=== PATIENT | female | born 1935 | race African-American/Black ===

== ENCOUNTER 2016-10-18 14:28 | Emergency (ER) | payer MEDICARE, MEDICAID ==
--- NOTE | 2016-10-18 14:38 | ER Document Report ---
ED Medical Screen (RME) - General Chief Complaint: Fall Injury Stated Complaint: FALL HEAD INJURY Time seen by provider: 14:36 Mode of Arrival: Ambulatory Information source: Patient Notes: 80-year-old female with dementia was with her caregiver and she was walking and stumbled fell forward onto both of her knees, abrasion to her third finger and multiple facial abrasions are to arrival. Tetanus unknown I have greeted and performed a rapid initial assessment of this patient. A comprehensive ED assessment, evaluation of the patient, analysis of test results , and completion of the medical decision making process will be conducted by additional ED providers. TRAVEL OUTSIDE OF THE [place] IN LAST 30 DAYS: No - Related Data Allergies/Adverse Reactions: No Known Allergies Allergy (Verified 10/18/16 14:35) Past Medical History Renal/ Medical History: Denies: Hx Peritoneal Dialysis
[2016-10-18] MEDS ORDERED: DIPH/PERTUSS(ACELL)/TETANUS VAC/PF 0.5 ML SYR (>=10YO) IM ONE (17:28)
--- NOTE | 2016-10-18 17:29 | ER Document Report ---
[id number] Mode of Arrival: Ambulatory Information source: Patient Notes: The patient is an 80-year-old female, past medical history Alzheimer's, presents after she had a mechanical fall where she slipped on carpet and landed on the right side of her face. She is also complaining of right fourth finger pain and abrasion. She did not have LOC. He is on a baby aspirin. Patient is confused, but according to the 2 sons at bedside, this is baseline. Unable to provide any additional history. TRAVEL OUTSIDE OF THE [place] IN LAST 30 DAYS: No - Related data Allergies/Adverse Reactions: No Known Allergies Allergy (Verified 10/18/16 14:35) Past Medical History - General Information source: Patient - Social History Smoking Status: Smoker,Current Status Unk Family History: Reviewed & Not Pertinent Patient has suicidal ideation: No Patient has homicidal ideation: No Renal/ Medical History: Denies: Hx Peritoneal Dialysis Review of Systems - Review of Systems -: Yes ROS unobtainable due to patient's medical condition Physical Exam - Vital signs Vitals: Temp Pulse Resp BP Pulse Ox 98.7 F 101 H 16 190/108 H 93 10/18/16 14:35 10/18/16 14:35 10/18/16 14:35 10/18/16 14:35 10/18/16 14:35 - Notes Notes: PHYSICAL EXAMINATION: GENERAL: Well-appearing, well-nourished and in no acute distress. HEAD: Large right frontal contusion. EYES: Large contusion surrounding right eye. No vision changes. No proptosis. Pupils equal round and reactive to light, extraocular movements intact, sclera anicteric, conjunctiva are normal. ENT: nares patent, oropharynx clear without exudates. Moist mucous membranes. NECK: Normal range of motion, supple without lymphadenopathy LUNGS: Breath sounds clear to auscultation bilaterally and equal. No wheezes rales or rhonchi. HEART: Regular rate and rhythm without murmurs ABDOMEN: Soft, nontender, normoactive bowel sounds. No guarding, no rebound. No masses appreciated. EXTREMITIES: Abrasion over right 4th finger. Normal range of motion, no pitting or edema. No cyanosis. NEUROLOGICAL: Cranial nerves grossly intact. Normal speech, normal gait. Normal sensory, motor, and reflex exams. SKIN: 2 cm stellate laceration over forehead. 1 cm linear laceration over right confucianism. Abrasion over right 4th finger. Warm, Dry, normal turgor, no rashes or lesions noted. Course - Re-evaluation Re-evalutation: Patient is at baseline for her mental status. CT of her head, face, chest and x -rays of her fingers and knees do not show any acute fractures. Lacerations repaired with Dermabond and Steri-Strips. Spoke to his sons about wound care and they understand. Answered all questions. - Vital Signs Vital signs: Temp Pulse Resp BP Pulse Ox 98.3 F 94 16 161/69 H 99 10/18/16 18:30 10/18/16 18:30 10/18/16 14:35 10/18/16 18:30 10/18/16 18:30 - Diagnostic Test Radiology reviewed: Image reviewed, Reports reviewed Radiology results interpreted by me: CT Head/Face/Chest: no fractures. X-ray right fingers: no fractures B/L knee x-rays: no fractures Procedures - Laceration/Wound Repair Right Upper Face Wound length (cm): 3 Wound's Depth, Shape: Stellate Laceration pre-procedure: Shur-Clens applied Wound explored: Clean Wound Debrided: Minimal Wound Repaired With: Dermabond Layer Closure?: No Post-procedure wound care: Sterile dressing applied Post-procedure NV exam normal: Yes Complications: No Discharge - Discharge Clinical Impression: Head contusion Qualifiers: Encounter type: initial encounter Contusion of head detail: unspecified part of head Qualified Code(s): S00.93XA - Contusion of unspecified part of head, initial encounter Forehead laceration Qualifiers: Encounter type: initial encounter Qualified Code(s): S01.81XA - Laceration without foreign body of other part of head, initial encounter Finger laceration Qualifiers: Encounter type: initial encounter Qualified Code(s): S61.219A - Laceration without foreign body of unspecified finger without damage to nail, initial encounter Disposition: HOME, SELF-CARE Additional Instructions: NON-SUTURED LACERATION: Your laceration did not require suturing. Some lacerations cannot be sutured because of increased infection risk, while others simply don't need stitches because they are shallow or very short. Your injury should be protected while it heals. Usually complete healing takes 10 to 14 days. Keep the dressing clean and dry, and change it every day. If you notice increasing pain, redness, swelling, drainage, or tender lumps in the armpit or groin above the injury, infection may be present. You should call the doctor at once. SOAP CLEANSING: Gently wash the wound daily using a mild soap (like Ivory, Phisoderm, Neutrogena). Use warm water, rubbing gently until all debris, ooze, and crusting have been washed from the wound. Allow to dry briefly (about 10 minutes) after cleaning. Repeat this cleansing at least three times a day for the first two days and then once or twice a day. ANTIBIOTIC OINTMENT PROTECTION: Your wounds are such that dressing them is not practical or optional. After cleansing, you should apply a thin coating of antibiotic ointment ( Bacitracin, not Neosporin) to the wounds at least three times daily. This lessens infection risk, and may decrease the amount of scarring. Use a q-tip or dull butter knife, not your finger, to apply this ointment. Any debris or ooze which builds up in the ointment should be gently rubbed off with a sterile gauze pad. Harder crusting may need to be gently scrubbed off with a clean wash cloth with soap and warm water, perhaps applying a warm, wet wash cloth to the wound for ten minutes first. Development of redness, severe itching, or blistering may mean allergy to the ointment. See the doctor. TETANUS IMMUNIZATION GIVEN: You have been given an immunization against tetanus. Please record this in your records. In general, a booster is needed only once every 10 years. The tetanus shot protects against tetanus or "lockjaw," which is a complication of certain wound infections (the tetanus shot cannot protect against the actual infection). The immunization site may become warm and red due to local reaction. If this occurs, apply warm compresses and take aspirin or ibuprofen to reduce inflammation and discomfort. Return for evaluation if the reaction becomes severe. Contusion Your injury has resulted in a contusion -- a crushing of the deep tissues. No injury to important structures was detected during the physician's exam. Contusions vary in the amount of pain they cause, and in the length of time required for healing. Typically, the area will become bruised, and will remain painful to touch for two or three weeks. However, most patients are back to working and playing within a few days. After the initial period of rest and cold-packs, your symptoms (together with the doctor's recommendations) will determine how rapidly you can get back to full activity. Usually this means "do what feels okay, but don't do things that hurt." If re-examination was recommended, it's important to follow up as instructed. Call the doctor or return any time if pain increases, if swelling becomes severe, if you develop numbness or weakness in an injured extremity, or if any other alarming symptoms occur. Referrals: MARGO FLETCHER MD [Primary Care Provider] - Follow up as needed
[2016-10-18 18:32] VITALS: BP 161/69
== END 2016-10-18 18:32 | disposition home or self-care (01) ==
LOC: ER 14:28
DX: S00.93XA Contusion of unspecified part of head, initial encounter (principal); S01.81XA Laceration without foreign body of other part of head, initial encounter; S61.219A Laceration without foreign body of unspecified finger without damage to nail, initial encounter; G30.9 Alzheimer's disease, unspecified; F02.80 Dementia in other diseases classified elsewhere, unspecified severity, without behavioral disturbance, psychotic disturbance, mood disturbance, and anxiety; W01.0XXA Fall on same level from slipping, tripping and stumbling without subsequent striking against object, initial encounter; Z23 Encounter for immunization; Z79.82 Long term (current) use of aspirin
CPT/HCPCS: 70450; 70486; 71250; 90471; 90715; 99284

== ENCOUNTER 2017-06-11 16:37 | Inpatient (IN) | payer MEDICARE, MEDICAID ==
[2017-06-11 17:06] LABS: ABSOLUTE BASOPHILS # (AUTO) 0.1 10^3/uL (0.0-0.2); ABSOLUTE EOSINOPHILS # (AUTO) 0.2 10^3/uL (0.0-0.6); ABSOLUTE LYMPHOCYTES (AUTO) 2.4 10^3/uL (0.5-4.7); ABSOLUTE MONOCYTES (AUTO) 0.8 10^3/uL (0.1-1.4); ABSOLUTE NEUT (AUTO) 3.9 10^3/uL (1.7-8.2); BASOPHILS % (AUTO) 1.2 % (0-2); EOSINOPHILS % (AUTO) 2.2 % (0-6); HEMATOCRIT 44.8 % (36.0-47.0); HGB HCT DIFFERENCE -2.8; LYMPHOCYTES % (AUTO) 33.2 % (13-45); MEAN CORPUSCULAR HEMOGLOBIN 26.8 pg (27.0-33.4); MEAN CORPUSCULAR HGB CONC 31.2 g/dL (32.0-36.0); MEAN CORPUSCULAR VOLUME 86 fl (80-97); MONOCYTES % (AUTO) 10.4 % (3-13); RED BLOOD COUNT 5.21 10^6/uL (3.72-5.28); RED CELL DISTRIBUTION WIDTH 17.5 % (11.5-14.0); WHITE BLOOD COUNT 7.3 10^3/uL (4.0-10.5)
[2017-06-11 17:26] LABS: ALANINE AMINOTRANSFERASE 36 U/L (9-52); ALBUMIN 4.1 g/dL (3.5-5.0); ALKALINE PHOSPHATASE 126 U/L (38-126); ANION GAP 13 (5-19); ASPARTATE AMINO TRANSFERASE 27 U/L (14-36); BILIRUBIN,DIRECT 0.4 mg/dL (0.0-0.4); BILIRUBIN,TOTAL 0.8 mg/dL (0.2-1.3); BLOOD UREA NITROGEN 27 mg/dL (7-20); CALCIUM 10.3 mg/dL (8.4-10.2); CARBON DIOXIDE 30 mmol/L (22-30); CHLORIDE 123 mmol/L (98-107); CREATININE RESULT 1.22 mg/dL (0.52-1.25); GLUCOSE 114 mg/dL (75-110); MAGNESIUM 2.9 mg/dL (1.6-2.3); SODIUM 166.2 mmol/L (137-145); TOTAL PROTEIN 7.3 g/dL (6.3-8.2)
[2017-06-11 17:57] LABS: APPEARANCE,URINE SLIGHTLY-CLOUDY; BILIRUBIN,URINE NEGATIVE (NEGATIVE); GLUCOSE, URINE NEGATIVE (NEGATIVE); KETONES,URINE NEGATIVE (NEGATIVE); LEUKOCYTE ESTERASE,URINE NEGATIVE (NEGATIVE); NITRITE,URINE NEGATIVE (NEGATIVE); PROTEIN,URINE NEGATIVE (NEGATIVE); UROBILINOGEN,URINE NEGATIVE mg/dL (<2.0)
--- NOTE | 2017-06-11 19:11 | ER Document Report ---
ED Seizure - General Mode of Arrival: Medic Information source: Relative Cannot obtain history due to: Other - Alzheimer's - HPI Patient complains to provider of: History of seizures Current seizure medications: Lamictal Injuries: None <GONZALO DEE - Last Filed: 06/11/17 19:11> <PAULETTE FINN - Last Filed: 06/11/17 21:07> - General Chief Complaint: Altered Mental Status Stated Complaint: ALTERED MENTAL STATUS Time Seen by Provider: 06/11/17 18:58 Notes: Patient is an 81-year-old female that presents to the emergency department today secondary to a possible seizure prior to arrival. Patient is nonverbal at baseline, son states the patient answers simple yes or no questions but has been essentially nonverbal for several months secondary to alzheimer's. Patient has a history of seizures and is on Lamictal. Son states that at approximately 1500 the patient began "twitching" her left arm and left leg. Son states the patient seemed to be awake and alert during the seizure which is normal for her seizure episodes. Son states he is unsure of her last seizure as they usually occur at night. (GONZALO DEE) - Related Data Allergies/Adverse Reactions: No Known Allergies Allergy (Verified 10/18/16 14:35) Past Medical History - General Information source: Relative, [facility] Records Cannot obtain history due to: Other - alzheimer's - Social History Smoking Status: Unknown if Ever Smoked Cigarette use (# per day): No Frequency of alcohol use: None Drug Abuse: None Lives with: Family Family History: Reviewed & Not Pertinent - Past Medical History Cardiac Medical History: Reports: Hx Hypertension Neurological Medical History: Reports: Hx Seizures Surgical Hx: Negative <GONZALO DEE - Last Filed: 06/11/17 19:11> Review of Systems - Review of Systems -: Yes ROS unobtainable due to patient's medical condition - patient non-verbal at baseline <GONZALO DEE - Last Filed: 06/11/17 19:11> Physical Exam - Vital signs Interpretation: Normal - General General appearance: Appears well, Alert - HEENT Head: Normocephalic, Atraumatic Eyes: Normal Pupils: PERRL - Respiratory Respiratory status: No respiratory distress Chest status: Nontender Breath sounds: Normal Chest palpation: Normal - Cardiovascular Rhythm: Regular Heart sounds: Normal auscultation Murmur: No - Abdominal Inspection: Normal Distension: No distension Bowel sounds: Normal Tenderness: Nontender Organomegaly: No organomegaly - Back Back: Normal, Nontender - Extremities General upper extremity: Normal ROM, Normal strength, Other - osteoarthritic changes. No: Edema General lower extremity: Edema - trace, bilaterally, Normal ROM, Normal strength , Other - see skin. osteoarthritic changes - Neurological Neuro grossly intact: Yes Cognition: Other - demented at baseline Speech: Other - does not speak during exam, son at bedside states this is baseline - Psychological Associated symptoms: Other - unable to assess - Skin Skin Temperature: Warm Skin Moisture: Dry Skin Color: Normal <GONZALO DEE - Last Filed: 06/11/17 19:11> <PAULETTE FINN - Last Filed: 06/11/17 21:07> - Vital signs Vitals: Resp BP Pulse Ox 18 150/99 H 94 06/11/17 16:47 06/11/17 16:47 06/11/17 16:47 - Skin Notes: right posterior heel has thickened skin which appears to be filled with blood, skin is intact with no breaks. (GONZALO DEE) Course - Laboratory Result Diagrams: 06/11/17 16:48 06/11/17 16:48 <GONZALO DEE - Last Filed: 06/11/17 19:11> - Laboratory Result Diagrams: 06/11/17 16:48 06/11/17 16:48 - EKG Interpretation by Al EKG shows normal: Sinus rhythm, [place], Intervals, QRS Complexes, ST-T Waves Rate: Normal - 98 Voltage: Consistant with LVH When compared to previous EKG there are: Previous EKG unavailable - Consults Dr. Paulson Time consulted: 21:00 Consulted provider: will see as inpatient - Telemetry admission <PAULETTE FINN - Last Filed: 06/11/17 21:07> - Vital Signs Vital signs: Temp Pulse Resp BP Pulse Ox 17 125/79 96 06/11/17 20:02 06/11/17 20:02 06/11/17 20:02 - Laboratory Laboratory results interpreted by la: 06/11/17 06/11/17 06/11/17 16:45 16:48 16:48 MCH 26.8 L MCHC 31.2 L RDW 17.5 H Sodium 166.2 H Chloride 123 H BUN 27 H Est GFR ( Amer) 51 L Est GFR (Non-Af Amer) 42 L Glucose 114 H POC Glucose 119 H Calcium 10.3 H Magnesium 2.9 H Discharge <GONZALO DEE - Last Filed: 06/11/17 19:11> - Discharge Admitting Provider: Ellis - Dr. Paulson is covering Unit Admitted: Telemetry <PAULETTE FINN - Last Filed: 06/11/17 21:07> - Discharge Clinical Impression: Breakthrough seizure, Hypernatremia Alzheimer's dementia Qualifiers: Alzheimer's disease onset: late-onset Dementia behavioral disturbance: without behavioral disturbance Qualified Code(s): G30.1 - Alzheimer's disease with late onset; F02.80 - Dementia in other diseases classified elsewhere without behavioral disturbance; F02.80 - Dementia in other diseases classified elsewhere without behavioral disturbance; F02.80 - Dementia in other diseases classified elsewhere without behavioral disturbance Condition: Stable Disposition: ADMITTED INPATIENT Referrals: MARGO FLETCHER MD [Primary Care Provider] - Follow up as needed Scribe Attestation: 06/11/17 21:07 I personally performed the services described in the documentation, reviewed and edited the documentation which was dictated to the scribe in my presence, and it accurately records my words and actions. (PUALETTE FINN) Scribe Documentation - Scribe Written by Scribe:: Dinorah Cruz, 06/11/2017 1918 acting as scribe for :: Nehemiah <GONZALO DEE - Last Filed: 06/11/17 19:11>
[2017-06-11] MEDS ORDERED: NORMAL SALINE 1000 ML 1,000 ML IV ONE (21:08)
[2017-06-12] MEDS ORDERED: DEXTROSE 5%-WATER 1000 ML 1,000 ML IV PRN ×2 (00:34→13:19)
[2017-06-12] MEDS ORDERED: QUETIAPINE FUMARATE 25 MG TABLET PO ONE ×2 (00:45→14:00)
[2017-06-12] MEDS: LANSOPRAZOLE 30 MG TAB.RAP.DR PO SCH (05:14)
[2017-06-12 05:39] LABS: ABSOLUTE EOSINOPHILS # (AUTO) 0.2 10^3/uL (0.0-0.6); ABSOLUTE LYMPHOCYTES (AUTO) 1.8 10^3/uL (0.5-4.7); ABSOLUTE MONOCYTES (AUTO) 0.5 10^3/uL (0.1-1.4); ABSOLUTE NEUT (AUTO) 3.2 10^3/uL (1.7-8.2); BASOPHILS % (AUTO) 0.6 % (0-2); EOSINOPHILS % (AUTO) 2.8 % (0-6); HEMATOCRIT 39.1 % (36.0-47.0); HEMOGLOBIN 12.1 g/dL (12.0-15.5); HGB HCT DIFFERENCE -2.8; LYMPHOCYTES % (AUTO) 31.7 % (13-45); MEAN CORPUSCULAR HGB CONC 31.1 g/dL (32.0-36.0); MEAN CORPUSCULAR VOLUME 87 fl (80-97); MONOCYTES % (AUTO) 8.6 % (3-13); RED CELL DISTRIBUTION WIDTH 17.3 % (11.5-14.0); SEGMENTED NEUTROPHILS % (AUTO) 56.3 % (42-78); WHITE BLOOD COUNT 5.7 10^3/uL (4.0-10.5)
[2017-06-12 05:54] LABS: ANION GAP 10 (5-19); BLOOD UREA NITROGEN 21 mg/dL (7-20); CALCIUM 9.1 mg/dL (8.4-10.2); CARBON DIOXIDE 31 mmol/L (22-30); CHLORIDE 124 mmol/L (98-107); CREATININE RESULT 1.02 mg/dL (0.52-1.25); GLUCOSE 123 mg/dL (75-110); POTASSIUM 3.6 mmol/L (3.6-5.0)
[2017-06-12] MEDS ORDERED: (PENDING PHARMACY ID) (Donepezil Hcl [Aricept] 10 MG) PO SCH (13:30)
[2017-06-12] MEDS ORDERED: LAMOTRIGINE 100 MG PO SCH (13:30)
[2017-06-12] MEDS ORDERED: QUETIAPINE FUMARATE 25 MG TABLET PO SCH (13:30)
--- NOTE | 2017-06-12 13:39 | PDOC H&P ---
History of Present Illness Admission Date/PCP: 06/12/17 00:08 MARGO FLETCHER MD Patient complains of: Altered mental status, possible seizure History of Present Illness: COREEN BHAKTA is a 81 year old female patient of Dr Fletcher brought to the ED by family with complain of change in mental status particularly regarding verbal communication. Son stated that patient have not been her usual self for couple of days and have not been eating or drinking enough. She will normally answer yes or no to questioning but not doing so in last couple of days. He claimed that patient had seizure like twitching movement prior to bring her to the ED. Her usual seizure activity is body twitching without loss of consciousness or tonic clonic movement.He claimed that she has been compliant with her anti seizure medication at home. Also, son reported that patient's seizure commonly occur during the night and cannot attest to her last seizure episode. Her initial evaluation in the ED was significant for severe hypernatremia and dehydration. Her morbidities include Alzheimer's disease, Hypertension, Hyperlipidemia, and Seizure disorder. Past Medical History Cardiac Medical History: Reports: Hypertension Neurological Medical History: Reports: Seizures Social History Lives with: Family Smoking Status: Never Smoker Frequency of Alcohol Use: None Drugs: None - Advance Directive Resuscitation Status: Full Code Family History Family History: Reviewed & Not Pertinent Parental Family History Reviewed: Yes Children Family History Reviewed: Yes Sibling(s) Family History Reviewed.: Yes Medication/Allergy Home Medications: Atorvastatin Calcium [Lipitor 40 mg Tablet] 40 mg PO DAILY 06/12/17 Donepezil HCl [Aricept] 10 mg PO DAILY 06/12/17 Lamotrigine [Lamotrigine ER] 100 mg PO DAILY 06/12/17 Losartan Potassium [Cozaar 100 mg Tablet] 100 mg PO DAILY 06/12/17 Potassium Chloride [Klor-Con 10 Meq Tablet.sa] 10 meq PO DAILY 06/12/17 Quetiapine Fumarate [Seroquel] 25 mg PO DAILY 06/12/17 Allergies/Adverse Reactions: No Known Allergies Allergy (Verified 10/18/16 14:35) Review of Systems ROS unobtainable: Due to mental status All systems: reviewed and no additional remarkable complaints except as stated Physical Exam Vital Signs: Temp Pulse Resp BP Pulse Ox 98.4 F 91 12 140/57 H 96 06/12/17 11:09 06/12/17 11:09 06/12/17 11:09 06/12/17 11:09 06/12/17 11:09 Intake & Output 06/11/17 06/12/17 06/13/17 06:59 06:59 06:59 Intake Total 790 Balance 790 General appearance: PRESENT: no acute distress, cooperative Head exam: PRESENT: atraumatic, normocephalic Eye exam: PRESENT: conjunctiva pink, EOMI, PERRLA. ABSENT: scleral icterus Ear exam: PRESENT: normal external ear exam Mouth exam: PRESENT: dry mucosa - fairly Neck exam: PRESENT: full ROM. ABSENT: carotid bruit, JVD, lymphadenopathy, thyromegaly Respiratory exam: PRESENT: clear to auscultation jesus, decreased breath sounds Cardiovascular exam: PRESENT: RRR. ABSENT: diastolic murmur, rubs, systolic murmur GI/Abdominal exam: PRESENT: normal bowel sounds, soft. ABSENT: distended, guarding, mass, organolmegaly, rebound, tenderness Extremities exam: ABSENT: pedal edema Musculoskeletal exam: PRESENT: deformity - related to joint involvement with arthritis Neurological exam: PRESENT: altered - due to baseline dementai Psychiatric exam: PRESENT: appropriate affect, normal mood. ABSENT: homicidal ideation, suicidal ideation Skin exam: PRESENT: dry, intact, warm. ABSENT: cyanosis, rash Results Laboratory Results: 06/12/17 04:46 06/12/17 04:46 06/12/17 06/12/17 04:46 04:46 WBC 5.7 RBC 4.50 Hgb 12.1 Hct 39.1 MCV 87 MCH 27.0 MCHC 31.1 L RDW 17.3 H Plt Count 174 Seg Neutrophils % 56.3 Lymphocytes % 31.7 Monocytes % 8.6 Eosinophils % 2.8 Basophils % 0.6 Absolute Neutrophils 3.2 Absolute Lymphocytes 1.8 Absolute Monocytes 0.5 Absolute Eosinophils 0.2 Absolute Basophils 0.0 Sodium 165.0 H Potassium 3.6 Chloride 124 H Carbon Dioxide 31 H Anion Gap 10 BUN 21 H Creatinine 1.02 Est GFR ( Amer) > 60 Est GFR (Non-Af Amer) 52 L Glucose 123 H Calcium 9.1 Assessment & Plan - Diagnosis (1) Dehydration with hypernatremia Is this a current diagnosis for this admission?: Yes Plan: See covering attending physician orders. (2) Seizure disorder Is this a current diagnosis for this admission?: Yes Plan: See covering attending physician orders. (3) Alzheimer's dementia Qualifiers: Alzheimer's disease onset: late-onset Dementia behavioral disturbance: without behavioral disturbance Qualified Code(s): G30.1 - Alzheimer's disease with late onset; F02.80 - Dementia in other diseases classified elsewhere without behavioral disturbance; F02.80 - Dementia in other diseases classified elsewhere without behavioral disturbance; F02.80 - Dementia in other diseases classified elsewhere without behavioral disturbance Is this a current diagnosis for this admission?: Yes Plan: See covering attending physician orders. - Time Time Spent: 50 to 70 Minutes Medications reviewed and adjusted accordingly: Yes Anticipated discharge: Home with Homehealth Within: Other - Inpatient Certification Based on my medical assessment, after consideration of the patient's comorbidities, presenting symptoms, or acuity I expect that the services needed warrant INPATIENT care.: Yes I certify that my determination is in accordance with my understanding of Medicare's requirements for reasonable and necessary INPATIENT services [42 CFR 412.3e].: Yes Medical Necessity: Need Close Monitoring Due to Risk of Patient Decompensation, Need For IV Fluids, Need For Continuous Telemetry Monitoring, Risk of Complication if Not Cared For in Hospital Post Hospital Care: D/C Wreath Inspector Documentation - Plan Summary Plan Summary: See covering attending physician orders.
[2017-06-12] MEDS: ENOXAPARIN SODIUM INJ 40 MG/0.4 ML DISP.SYRIN SUBCUT SCH (14:37)
[2017-06-12] MEDS ORDERED: LOSARTAN POTASSIUM 50 MG TABLET PO ONE (15:45)
[2017-06-12] MEDS ORDERED: DONEPEZIL HCL 5 MG TABLET PO ONE (15:45)
[2017-06-12] MEDS: ACETAMINOPHEN 325 MG TABLET PO PRN (15:56)
--- NOTE | 2017-06-12 16:58 | EKG REPORT ---
SEVERITY:- ABNORMAL ECG - SINUS RHYTHM LEFT VENTRICULAR HYPERTROPHY : Confirmed by: Ivy Lynn MD 12-Jun-2017 16:57:27
[2017-06-12] MEDS: ATORVASTATIN CALCIUM 40 MG TABLET PO SCH (22:03)
[2017-06-13] MEDS: LANSOPRAZOLE 30 MG TAB.RAP.DR PO SCH (05:19)
[2017-06-13] MEDS ORDERED: QUETIAPINE FUMARATE 25 MG TABLET PO SCH (10:00)
[2017-06-13] MEDS: ENOXAPARIN SODIUM INJ 40 MG/0.4 ML DISP.SYRIN SUBCUT SCH (11:18)
[2017-06-13] MEDS: DONEPEZIL HCL 5 MG TABLET PO SCH (11:21)
[2017-06-13] MEDS: LOSARTAN POTASSIUM 50 MG TABLET PO SCH (11:21)
[2017-06-13] MEDS: LAMOTRIGINE 100 MG PO SCH (11:24)
[2017-06-13 12:05] LABS: ANION GAP 10 (5-19); BLOOD UREA NITROGEN 14 mg/dL (7-20); CALCIUM 8.9 mg/dL (8.4-10.2); CARBON DIOXIDE 31 mmol/L (22-30); CHLORIDE 111 mmol/L (98-107); CREATININE RESULT 0.89 mg/dL (0.52-1.25); GLUCOSE 110 mg/dL (75-110); SODIUM 152.2 mmol/L (137-145)
[2017-06-13 12:20] LABS: POTASSIUM 2.8 mmol/L (3.6-5.0)
[2017-06-13] MEDS ORDERED: POTASSI CL 20 MEQ/50 ML RIDER 20 MEQ/50 ML RTUPB IV SCH (12:47)
[2017-06-13] MEDS ORDERED: CEFTRIAXONE 1 GM/D5W RTU 1 GM/50 ML RTUPB IV ONE (14:00)
--- NOTE | 2017-06-13 14:23 | PDOC PROGRESS REPORT ---
Subjective Progress Note for:: 06/13/17 Subjective:: Patient was admitted because of the possible seizure and the worsening the dementia and dehydration's Recent sodium level was high and was started on a D5 and now coming down to 158 Patient's potassium is also low According to the nursing staff and son patient ate the 75% of the breakfast this morning According to the son patient's behavior is more getting worse since last couple of months Also see a neurology as outpatient Patient is currently laying in the bed but alert but not fully oriented as usual underlying present dementia Physical Exam Vital Signs: Temp Pulse Resp BP Pulse Ox 98.7 F 97 20 149/73 H 96 06/13/17 11:08 06/13/17 11:08 06/13/17 11:08 06/13/17 11:08 06/13/17 11:08 Intake & Output 06/12/17 06/13/17 06/14/17 06:59 06:59 06:59 Intake Total 790 2630 Balance 790 2630 Weight 85.6 kg General appearance: PRESENT: no acute distress Eye exam: PRESENT: PERRLA Mouth exam: PRESENT: dry mucosa Neck exam: PRESENT: full ROM Respiratory exam: PRESENT: clear to auscultation jesus Cardiovascular exam: PRESENT: +S1 GI/Abdominal exam: PRESENT: normal bowel sounds, soft Extremities exam: ABSENT: pedal edema Neurological exam: PRESENT: altered Skin exam: PRESENT: dry Results Laboratory Results: 06/12/17 04:46 06/13/17 11:19 06/13/17 11:19 Sodium 152.2 H Potassium 2.8 L* Chloride 111 H Carbon Dioxide 31 H Anion Gap 10 BUN 14 Creatinine 0.89 Est GFR ( Amer) > 60 Est GFR (Non-Af Amer) > 60 Glucose 110 Calcium 8.9 Assessment & Plan - Diagnosis (1) Hypokalemia Is this a current diagnosis for this admission?: Yes Plan: Replace the potassiums IVWill have a difficult to supplement with the p.o. at this stage (2) Alzheimer's dementia Qualifiers: Alzheimer's disease onset: late-onset Dementia behavioral disturbance: without behavioral disturbance Qualified Code(s): G30.1 - Alzheimer's disease with late onset; F02.80 - Dementia in other diseases classified elsewhere without behavioral disturbance; F02.80 - Dementia in other diseases classified elsewhere without behavioral disturbance; F02.80 - Dementia in other diseases classified elsewhere without behavioral disturbance Is this a current diagnosis for this admission?: Yes Plan: Worsening the dimensions discussed with the son on the bedside report regarding options to sending to the rehab unit versus home and versus ongoing problem with the dementia including the failure to thrive (3) Breakthrough seizure Is this a current diagnosis for this admission?: Yes Plan: Currently stable with the current medications (4) Dehydration with hypernatremia Is this a current diagnosis for this admission?: Yes Plan: Continues to IV fluid will get the potassium and IV fluid (5) Hypernatremia Is this a current diagnosis for this admission?: Yes Plan: Continues to IV fluid (6) Recurrent urinary tract infection Is this a current diagnosis for this admission?: Yes Plan: Will check the urine culture with the currently altered mental surgery start the patient on IV Rocephin with this change in the mental status and a previous history of the recurrent urinary tract infections - Time Time Spent with patient: 15-24 minutes Medications reviewed and adjusted accordingly: Yes Anticipated discharge: Other Within: Other - Inpatient Certification Medical Necessity: Need For IV Fluids, Need for IV Antibiotics Post Hospital Care: D/C O[employer] Unloader Documentation - Plan Summary Plan Summary: Discussed with the son and the bedside about the patient's current conditions
--- NOTE | 2017-06-13 15:24 | RADIOLOGY REPORT (SQ) ---
EXAM DESCRIPTION: CT HEAD WITHOUT COMPLETED DATE/TIME: 06/13/2017 3:11 pm REASON FOR STUDY: ams COMPARISON: 10/18/2016 TECHNIQUE: Axial images acquired through the brain without intravenous contrast. Images reviewed wi th bone, brain and subdural windows. Images stored on PACS. All CT scanners at this facility use dose modulation, iterative reconstruction, and/or weight based d osing when appropriate to reduce radiation dose to as low as reasonably achievable (ALARA). [facility]: Dose Right [facility]: CareDose [facility]: Dose Right [facility]: Teradose 4D [facility]: Smart [employer] RADIATION DOSE: Up-to-date CT equipment and radiation dose reduction techniques were employed. CTDIv ol: 49.0 mGy. DLP: 881 mGy-cm.mGy. LIMITATIONS: None. FINDINGS: VENTRICLES: Prominent. CEREBRUM: No masses. No hemorrhage. No midline shift. Areas of low density in the white matter mos t likely due to chronic micro-vascular ischemic change. No evidence for acute infarction. CEREBELLUM: No masses. No hemorrhage. No alteration of density. No evidence for acute infarction. EXTRAAXIAL SPACES: Age-related involutional change. No fluid collections. No masses. ORBITS AND GLOBE: No intra- or extraconal masses. Normal contour of globe without masses. CALVARIUM: No fracture. PARANASAL SINUSES: No fluid or mucosal thickening. SOFT TISSUES: No mass or hematoma. OTHER: No other significant finding. IMPRESSION: NO ACUTE INTRACRANIAL PROCESS. NO SIGNIFICANT CHANGE FROM PRIOR STUDY. EVIDENCE OF ACUTE STROKE: NO. TECHNICAL DOCUMENTATION: JOB ID: [id number] Quality ID # [id number]: Final reports with documentation of one or more dose reduction techniques (e.g., Au tomated exposure control, adjustment of the mA and/or kV according to patient size, use of iterative reconstruction technique) 2010 [employer]- All Rights Reserved
[2017-06-13] MEDS ORDERED: POTASSIUM CHLORIDE 20 MEQ/50 ML RTU IV ONE (17:15)
[2017-06-13] MEDS ORDERED: GUAIFENESIN SYRP 200 MG/10 ML UDC PO PRN (21:08)
[2017-06-13] MEDS: QUETIAPINE FUMARATE 25 MG TABLET PO SCH (22:39)
[2017-06-13] MEDS: ACETAMINOPHEN 325 MG TABLET PO PRN (22:39)
[2017-06-13] MEDS: POTASSI CL 40 MEQ/D5-1/2NS 1L 40 MEQ/1,000 ML RTUINJ IV PRN (22:39)
[2017-06-13] MEDS: ATORVASTATIN CALCIUM 40 MG TABLET PO SCH (22:39)
[2017-06-14] MEDS: LANSOPRAZOLE 30 MG TAB.RAP.DR PO SCH (05:47)
[2017-06-14 07:05] LABS: ABSOLUTE EOSINOPHILS # (AUTO) 0.3 10^3/uL (0.0-0.6); ABSOLUTE MONOCYTES (AUTO) 0.5 10^3/uL (0.1-1.4); ABSOLUTE NEUT (AUTO) 2.5 10^3/uL (1.7-8.2); BASOPHILS % (AUTO) 0.4 % (0-2); EOSINOPHILS % (AUTO) 4.9 % (0-6); HEMATOCRIT 36.1 % (36.0-47.0); HEMOGLOBIN 11.2 g/dL (12.0-15.5); HGB HCT DIFFERENCE -2.5; LYMPHOCYTES % (AUTO) 37.6 % (13-45); MEAN CORPUSCULAR HEMOGLOBIN 26.7 pg (27.0-33.4); MEAN CORPUSCULAR HGB CONC 31.1 g/dL (32.0-36.0); MEAN CORPUSCULAR VOLUME 86 fl (80-97); MONOCYTES % (AUTO) 9.1 % (3-13); RED BLOOD COUNT 4.21 10^6/uL (3.72-5.28); RED CELL DISTRIBUTION WIDTH 16.3 % (11.5-14.0); WHITE BLOOD COUNT 5.2 10^3/uL (4.0-10.5)
[2017-06-14 07:22] LABS: ANION GAP 10 (5-19); BLOOD UREA NITROGEN 11 mg/dL (7-20); CARBON DIOXIDE 29 mmol/L (22-30); CHLORIDE 116 mmol/L (98-107); CREATININE RESULT 0.87 mg/dL (0.52-1.25); GLUCOSE 106 mg/dL (75-110); POTASSIUM 3.7 mmol/L (3.6-5.0)
[2017-06-14] MEDS: DONEPEZIL HCL 5 MG TABLET PO SCH (11:19)
[2017-06-14] MEDS: CEFTRIAXONE 1 GM/D5W RTU 1 GM/50 ML RTUPB IV SCH (11:19)
[2017-06-14] MEDS: LOSARTAN POTASSIUM 50 MG TABLET PO SCH (11:20)
[2017-06-14] MEDS: ENOXAPARIN SODIUM INJ 40 MG/0.4 ML DISP.SYRIN SUBCUT SCH (11:21)
[2017-06-14] MEDS: LAMOTRIGINE 100 MG PO SCH (11:32)
--- NOTE | 2017-06-14 13:47 | PDOC PROGRESS REPORT ---
Subjective Progress Note for:: 06/14/17 Subjective:: Patient is currently doing fair more alert awake but still very confused Patient CT head was all negative for any acute finding Discussed with the nursing staff patient's p.o. intake is 75% Physical Exam Vital Signs: Temp Pulse Resp BP Pulse Ox 97.8 F 75 18 150/71 H 98 06/14/17 11:46 06/14/17 11:46 06/14/17 11:46 06/14/17 11:46 06/14/17 11:46 Intake & Output 06/13/17 06/14/17 06/15/17 06:59 06:59 06:59 Intake Total 2630 2896 Balance 2630 2896 Weight 85.6 kg General appearance: PRESENT: no acute distress, well-developed, well-nourished Head exam: PRESENT: atraumatic, normocephalic Eye exam: PRESENT: conjunctiva pink, EOMI, PERRLA. ABSENT: scleral icterus Ear exam: PRESENT: normal external ear exam Mouth exam: PRESENT: moist, tongue midline Neck exam: PRESENT: full ROM. ABSENT: carotid bruit, JVD, lymphadenopathy, thyromegaly Respiratory exam: PRESENT: clear to auscultation jesus Cardiovascular exam: PRESENT: RRR. ABSENT: diastolic murmur, rubs, systolic murmur Pulses: PRESENT: normal dorsalis pedis pul, +2 pedal pulses bilateral Vascular exam: PRESENT: normal capillary refill GI/Abdominal exam: PRESENT: normal bowel sounds, soft. ABSENT: distended, guarding, mass, organolmegaly, rebound, tenderness Rectal exam: PRESENT: deferred Extremities exam: ABSENT: pedal edema Neurological exam: PRESENT: altered. ABSENT: motor sensory deficit Psychiatric exam: PRESENT: appropriate affect, normal mood. ABSENT: homicidal ideation, suicidal ideation Skin exam: PRESENT: dry, intact, warm. ABSENT: cyanosis, rash Results Laboratory Results: 06/14/17 05:52 06/14/17 05:52 06/14/17 06/14/17 05:52 05:52 WBC 5.2 RBC 4.21 Hgb 11.2 L Hct 36.1 MCV 86 MCH 26.7 L MCHC 31.1 L RDW 16.3 H Plt Count 154 Seg Neutrophils % 48.0 Lymphocytes % 37.6 Monocytes % 9.1 Eosinophils % 4.9 Basophils % 0.4 Absolute Neutrophils 2.5 Absolute Lymphocytes 2.0 Absolute Monocytes 0.5 Absolute Eosinophils 0.3 Absolute Basophils 0.0 Sodium 155.0 H Potassium 3.7 Chloride 116 H Carbon Dioxide 29 Anion Gap 10 BUN 11 Creatinine 0.87 Est GFR ( Amer) > 60 Est GFR (Non-Af Amer) > 60 Glucose 106 Calcium 9.0 Impressions: Head CT 06/13/17 00:00 IMPRESSION: NO ACUTE INTRACRANIAL PROCESS. NO SIGNIFICANT CHANGE FROM PRIOR STUDY. EVIDENCE OF ACUTE STROKE: NO. Assessment & Plan - Diagnosis (1) Hypokalemia Is this a current diagnosis for this admission?: Yes Plan: Currently all resolved (2) Alzheimer's dementia Qualifiers: Alzheimer's disease onset: late-onset Dementia behavioral disturbance: without behavioral disturbance Qualified Code(s): G30.1 - Alzheimer's disease with late onset; F02.80 - Dementia in other diseases classified elsewhere without behavioral disturbance; F02.80 - Dementia in other diseases classified elsewhere without behavioral disturbance; F02.80 - Dementia in other diseases classified elsewhere without behavioral disturbance Is this a current diagnosis for this admission?: Yes Plan: Worsening the dimensions discussed with the son on the bedside report regarding options to sending to the rehab unit versus home and versus ongoing problem with the dementia including the failure to thrive (3) Breakthrough seizure Is this a current diagnosis for this admission?: Yes Plan: Currently stable with the current medications (4) Dehydration with hypernatremia Is this a current diagnosis for this admission?: Yes Plan: Continues to IV fluid will get the potassium and IV fluid (5) Hypernatremia Is this a current diagnosis for this admission?: Yes Plan: Continues to IV fluid (6) Recurrent urinary tract infection Is this a current diagnosis for this admission?: Yes Plan: Wait for the urine culture - Time Time Spent with patient: 15-24 minutes Medications reviewed and adjusted accordingly: Yes Anticipated discharge: Home Within: Other - Inpatient Certification Medical Necessity: Need For IV Fluids, Need for IV Antibiotics Post Hospital Care: D/C [employer] Quality Control Technician Documentation - Plan Summary Plan Summary: Continues to current medications we will get the physical therapy wait for all culture
--- NOTE | 2017-06-14 16:01 | RADIOLOGY REPORT (SQ) ---
EXAM DESCRIPTION: CHEST SINGLE VIEW COMPLETED DATE/TIME: 06/14/2017 3:51 pm REASON FOR STUDY: cough COMPARISON: CT 10/18/2016 EXAM PARAMETERS: NUMBER OF VIEWS: One view. TECHNIQUE: Single frontal radiographic view of the chest acquired. RADIATION DOSE: NA LIMITATIONS: None. FINDINGS: LUNGS AND PLEURA: The left hemidiaphragm is elevated. There is no acute infiltrate or eff usion. There is no mass. MEDIASTINUM AND HILAR STRUCTURES: No masses. Contour normal. HEART AND VASCULAR STRUCTURES: Heart normal in size. Normal vasculature. BONES: No acute findings. HARDWARE: None in the chest. OTHER: No other significant finding. IMPRESSION: NO ACUTE RADIOGRAPHIC FINDING IN THE CHEST. TECHNICAL DOCUMENTATION: JOB ID: [id number]
[2017-06-14] MEDS: POTASSI CL 40 MEQ/D5-1/2NS 1L 40 MEQ/1,000 ML RTUINJ IV PRN (18:56)
[2017-06-14] MEDS: ATORVASTATIN CALCIUM 40 MG TABLET PO SCH (22:16)
[2017-06-14] MEDS: QUETIAPINE FUMARATE 25 MG TABLET PO SCH (22:16)
[2017-06-15] MEDS: POTASSI CL 40 MEQ/D5-1/2NS 1L 40 MEQ/1,000 ML RTUINJ IV PRN ×2 (05:13→23:14)
[2017-06-15] MEDS: LANSOPRAZOLE 30 MG TAB.RAP.DR PO SCH (05:17)
[2017-06-15 05:49] LABS: ANION GAP 9 (5-19); BLOOD UREA NITROGEN 10 mg/dL (7-20); CARBON DIOXIDE 27 mmol/L (22-30); CHLORIDE 115 mmol/L (98-107); CREATININE RESULT 0.74 mg/dL (0.52-1.25); GLUCOSE 132 mg/dL (75-110); POTASSIUM 3.7 mmol/L (3.6-5.0)
--- NOTE | 2017-06-15 08:26 | PDOC PROGRESS REPORT ---
Subjective Progress Note for:: 06/15/17 Subjective:: Patient is currently doing fair. Patient's able to eat more but nursing staffNo other events happened Physical Exam Vital Signs: Temp Pulse Resp BP Pulse Ox 97.4 F 78 16 147/64 H 97 06/15/17 03:31 06/15/17 03:31 06/15/17 03:31 06/15/17 03:31 06/15/17 03:31 Intake & Output 06/14/17 06/15/17 06/16/17 06:59 06:59 06:59 Intake Total 2896 3317 Balance 2896 3317 General appearance: PRESENT: no acute distress, well-developed, well-nourished Head exam: PRESENT: atraumatic, normocephalic Eye exam: PRESENT: conjunctiva pink, EOMI, PERRLA. ABSENT: scleral icterus Ear exam: PRESENT: normal external ear exam Mouth exam: PRESENT: moist, tongue midline Neck exam: PRESENT: full ROM. ABSENT: carotid bruit, JVD, lymphadenopathy, thyromegaly Respiratory exam: PRESENT: clear to auscultation jesus Cardiovascular exam: PRESENT: RRR. ABSENT: diastolic murmur, rubs, systolic murmur Pulses: PRESENT: normal dorsalis pedis pul, +2 pedal pulses bilateral Vascular exam: PRESENT: normal capillary refill GI/Abdominal exam: PRESENT: normal bowel sounds, soft. ABSENT: distended, guarding, mass, organolmegaly, rebound, tenderness Rectal exam: PRESENT: deferred Extremities exam: ABSENT: pedal edema Neurological exam: PRESENT: altered. ABSENT: motor sensory deficit Psychiatric exam: PRESENT: appropriate affect, normal mood. ABSENT: homicidal ideation, suicidal ideation Skin exam: PRESENT: dry, intact, warm. ABSENT: cyanosis, rash Results Laboratory Results: 06/14/17 05:52 06/15/17 04:23 06/15/17 04:23 Sodium 151.0 H Potassium 3.7 Chloride 115 H Carbon Dioxide 27 Anion Gap 9 BUN 10 Creatinine 0.74 Est GFR ( Amer) > 60 Est GFR (Non-Af Amer) > 60 Glucose 132 H Calcium 9.0 Impressions: Head CT 06/13/17 00:00 IMPRESSION: NO ACUTE INTRACRANIAL PROCESS. NO SIGNIFICANT CHANGE FROM PRIOR STUDY. EVIDENCE OF ACUTE STROKE: NO. Chest X-Ray 06/14/17 00:00 IMPRESSION: NO ACUTE RADIOGRAPHIC FINDING IN THE CHEST. Assessment & Plan - Diagnosis (1) Hypokalemia Is this a current diagnosis for this admission?: Yes Plan: Currently resolved (2) Alzheimer's dementia Qualifiers: Alzheimer's disease onset: late-onset Dementia behavioral disturbance: without behavioral disturbance Qualified Code(s): G30.1 - Alzheimer's disease with late onset; F02.80 - Dementia in other diseases classified elsewhere without behavioral disturbance; F02.80 - Dementia in other diseases classified elsewhere without behavioral disturbance; F02.80 - Dementia in other diseases classified elsewhere without behavioral disturbance Is this a current diagnosis for this admission?: Yes Plan: Worsening the dimensions discussed with the son on the bedside report regarding options to sending to the rehab unit versus home and versus ongoing problem with the dementia including the failure to thrive (3) Breakthrough seizure Is this a current diagnosis for this admission?: Yes Plan: Currently stable with the current medications (4) Dehydration with hypernatremia Is this a current diagnosis for this admission?: Yes Plan: Just IV fluid (5) Hypernatremia Is this a current diagnosis for this admission?: Yes Plan: Continues to IV fluid (6) Recurrent urinary tract infection Is this a current diagnosis for this admission?: Yes Plan: Wait for the urine culture - Time Time Spent with patient: 15-24 minutes Medications reviewed and adjusted accordingly: Yes Anticipated discharge: Home Within: Other - Inpatient Certification Medical Necessity: Need For IV Fluids Post Hospital Care: D/C Chemical Economist Documentation - Plan Summary Plan Summary: Continues to current medications get the physical therapy discussed with the son regarding the patient's current conditions
[2017-06-15] MEDS: DONEPEZIL HCL 5 MG TABLET PO SCH (13:14)
[2017-06-15] MEDS: LOSARTAN POTASSIUM 50 MG TABLET PO SCH (13:15)
[2017-06-15] MEDS: CEFTRIAXONE 1 GM/D5W RTU 1 GM/50 ML RTUPB IV SCH (13:15)
[2017-06-15] MEDS: ENOXAPARIN SODIUM INJ 40 MG/0.4 ML DISP.SYRIN SUBCUT SCH (13:18)
[2017-06-15] MEDS: LAMOTRIGINE 100 MG PO SCH (13:24)
[2017-06-15] MEDS: QUETIAPINE FUMARATE 25 MG TABLET PO SCH (22:29)
[2017-06-15] MEDS: ATORVASTATIN CALCIUM 40 MG TABLET PO SCH (22:29)
[2017-06-16] MEDS: LANSOPRAZOLE 30 MG TAB.RAP.DR PO SCH (05:02)
[2017-06-16 06:12] LABS: ABSOLUTE EOSINOPHILS # (AUTO) 0.3 10^3/uL (0.0-0.6); ABSOLUTE LYMPHOCYTES (AUTO) 1.7 10^3/uL (0.5-4.7); ABSOLUTE MONOCYTES (AUTO) 0.5 10^3/uL (0.1-1.4); ABSOLUTE NEUT (AUTO) 2.6 10^3/uL (1.7-8.2); BASOPHILS % (AUTO) 0.6 % (0-2); EOSINOPHILS % (AUTO) 5.3 % (0-6); HEMATOCRIT 38.6 % (36.0-47.0); HEMOGLOBIN 12.4 g/dL (12.0-15.5); HGB HCT DIFFERENCE -1.4; LYMPHOCYTES % (AUTO) 33.7 % (13-45); MEAN CORPUSCULAR HEMOGLOBIN 26.9 pg (27.0-33.4); MEAN CORPUSCULAR HGB CONC 32.1 g/dL (32.0-36.0); MEAN CORPUSCULAR VOLUME 84 fl (80-97); MONOCYTES % (AUTO) 9.8 % (3-13); RED CELL DISTRIBUTION WIDTH 16.1 % (11.5-14.0); SEGMENTED NEUTROPHILS % (AUTO) 50.6 % (42-78); WHITE BLOOD COUNT 5.1 10^3/uL (4.0-10.5)
[2017-06-16 06:31] LABS: ANION GAP 11 (5-19); BLOOD UREA NITROGEN 10 mg/dL (7-20); CALCIUM 9.4 mg/dL (8.4-10.2); CARBON DIOXIDE 27 mmol/L (22-30); CHLORIDE 108 mmol/L (98-107); CREATININE RESULT 0.71 mg/dL (0.52-1.25); GLUCOSE 118 mg/dL (75-110); POTASSIUM 3.8 mmol/L (3.6-5.0); SODIUM 146.1 mmol/L (137-145)
--- NOTE | 2017-06-16 08:24 | PDOC PROGRESS REPORT ---
Subjective Progress Note for:: 06/23/17 Subjective:: Patient is currently doing well. Patient's still underlying significant dementia very difficult for the physical therapy yesterday Patient's sodium and potassium is back to the normal Otherwise no fever and a urine culture is all negative Family has not decided yet to take the patient home versus the rehab Physical Exam Vital Signs: Temp Pulse Resp BP Pulse Ox 98.8 F 82 19 146/72 H 98 06/16/17 07:19 06/16/17 07:19 06/16/17 07:19 06/16/17 07:19 06/16/17 07:19 Intake & Output 06/15/17 06/16/17 06/17/17 06:59 06:59 06:59 Intake Total 3317 2064 Balance 3317 2064 General appearance: PRESENT: no acute distress, well-developed, well-nourished Head exam: PRESENT: atraumatic, normocephalic Eye exam: PRESENT: conjunctiva pink, EOMI, PERRLA. ABSENT: scleral icterus Ear exam: PRESENT: normal external ear exam Mouth exam: PRESENT: moist, tongue midline Neck exam: PRESENT: full ROM. ABSENT: carotid bruit, JVD, lymphadenopathy, thyromegaly Respiratory exam: PRESENT: clear to auscultation jesus Cardiovascular exam: PRESENT: RRR. ABSENT: diastolic murmur, rubs, systolic murmur Pulses: PRESENT: normal dorsalis pedis pul, +2 pedal pulses bilateral Vascular exam: PRESENT: normal capillary refill GI/Abdominal exam: PRESENT: normal bowel sounds, soft. ABSENT: distended, guarding, mass, organolmegaly, rebound, tenderness Rectal exam: PRESENT: deferred Extremities exam: ABSENT: pedal edema Neurological exam: PRESENT: altered. ABSENT: motor sensory deficit Psychiatric exam: PRESENT: appropriate affect, normal mood. ABSENT: homicidal ideation, suicidal ideation Skin exam: PRESENT: dry, intact, warm. ABSENT: cyanosis, rash Results Laboratory Results: 06/16/17 04:05 06/16/17 04:05 06/16/17 06/16/17 04:05 04:05 WBC 5.1 RBC 4.60 Hgb 12.4 Hct 38.6 MCV 84 MCH 26.9 L MCHC 32.1 RDW 16.1 H Plt Count 148 L Seg Neutrophils % 50.6 Lymphocytes % 33.7 Monocytes % 9.8 Eosinophils % 5.3 Basophils % 0.6 Absolute Neutrophils 2.6 Absolute Lymphocytes 1.7 Absolute Monocytes 0.5 Absolute Eosinophils 0.3 Absolute Basophils 0.0 Sodium 146.1 H Potassium 3.8 Chloride 108 H Carbon Dioxide 27 Anion Gap 11 BUN 10 Creatinine 0.71 Est GFR ( Amer) > 60 Est GFR (Non-Af Amer) > 60 Glucose 118 H Calcium 9.4 Impressions: Head CT 06/13/17 00:00 IMPRESSION: NO ACUTE INTRACRANIAL PROCESS. NO SIGNIFICANT CHANGE FROM PRIOR STUDY. EVIDENCE OF ACUTE STROKE: NO. Chest X-Ray 06/14/17 00:00 IMPRESSION: NO ACUTE RADIOGRAPHIC FINDING IN THE CHEST. Assessment & Plan - Diagnosis (1) Hypokalemia Is this a current diagnosis for this admission?: Yes Plan: resolved (2) Alzheimer's dementia Qualifiers: Alzheimer's disease onset: late-onset Dementia behavioral disturbance: without behavioral disturbance Qualified Code(s): G30.1 - Alzheimer's disease with late onset; F02.80 - Dementia in other diseases classified elsewhere without behavioral disturbance; F02.80 - Dementia in other diseases classified elsewhere without behavioral disturbance; F02.80 - Dementia in other diseases classified elsewhere without behavioral disturbance Is this a current diagnosis for this admission?: Yes Plan: Worsening the dimensions discussed with the son on the bedside report regarding options to sending to the rehab unit versus home and versus ongoing problem with the dementia including the failure to thrive (3) Breakthrough seizure Is this a current diagnosis for this admission?: Yes Plan: Currently stable with the current medications (4) Dehydration with hypernatremia Is this a current diagnosis for this admission?: Yes Plan: We will stop the IV fluid and encourage the p.o. intake by planning the patient' s to discharge home versus rehab (5) Hypernatremia Is this a current diagnosis for this admission?: Yes Plan: Increase the p.o. intake (6) Recurrent urinary tract infection Is this a current diagnosis for this admission?: Yes Plan: Urine culture is all negative we will stop the IV antibiotic - Time Time Spent with patient: 15-24 minutes Medications reviewed and adjusted accordingly: Yes Anticipated discharge: Other Within: Other - Inpatient Certification Medical Necessity: Need Close Monitoring Due to Risk of Patient Decompensation Post Hospital Care: D/C Metal Lather Documentation - Plan Summary Plan Summary: We will discuss with the family today with the patient's probably needs to go to the rehab while the patient still have a challenge with the p.o. intake and also have some instability patients probably need a physical therapy and more close supervising
[2017-06-16] MEDS: ENOXAPARIN SODIUM INJ 40 MG/0.4 ML DISP.SYRIN SUBCUT SCH (10:41)
[2017-06-16] MEDS: AMLODIPINE BESYLATE 2.5 MG TABLET PO SCH ×2 (10:42→21:17)
[2017-06-16] MEDS: LOSARTAN POTASSIUM 50 MG TABLET PO SCH (10:42)
[2017-06-16] MEDS: DONEPEZIL HCL 5 MG TABLET PO SCH (10:42)
[2017-06-16] MEDS: LAMOTRIGINE 100 MG PO SCH (10:44)
[2017-06-16] MEDS: POTASSIUM CHLORIDE 10 MEQ TABLET.SA PO SCH (10:51)
[2017-06-16] MEDS: ATORVASTATIN CALCIUM 40 MG TABLET PO SCH (21:17)
[2017-06-16] MEDS: QUETIAPINE FUMARATE 25 MG TABLET PO SCH (21:17)
[2017-06-17 05:01] LABS: ANION GAP 11 (5-19); BLOOD UREA NITROGEN 13 mg/dL (7-20); CALCIUM 9.7 mg/dL (8.4-10.2); CARBON DIOXIDE 28 mmol/L (22-30); CHLORIDE 107 mmol/L (98-107); CREATININE RESULT 0.81 mg/dL (0.52-1.25); GLUCOSE 105 mg/dL (75-110); SODIUM 145.8 mmol/L (137-145)
[2017-06-17] MEDS: LANSOPRAZOLE 30 MG TAB.RAP.DR PO SCH (05:26)
--- NOTE | 2017-06-17 08:36 | PDOC TRANSFER SUMMARY ---
General - Admit/Disc Date/PCP Admission Date/Primary Care Provider: 06/12/17 00:08 MARGO FLETCHER MD Discharge Date: 06/17/17 - Discharge Diagnosis (1) Hypokalemia Is this a current diagnosis for this admission?: Yes Summary: Currently all resolved (2) Alzheimer's dementia Is this a current diagnosis for this admission?: Yes Summary: Worsening the dementia will start the patient on Namenda 5 mg and for patients tolerated increase to the 10 mg and 2 weeksPatient also see a neurology as outpatients Dr. Pope (3) Breakthrough seizure Is this a current diagnosis for this admission?: Yes Summary: Currently all well-controlled continues to current medicationFollow-up outpatients neurology (4) Dehydration with hypernatremia Is this a current diagnosis for this admission?: Yes Summary: Currently all resolved discussed with the patient's son to encourage the more p.o. fluid intake and if the patient's persistent problems consider the PEG tube placement (5) Hypernatremia Is this a current diagnosis for this admission?: Yes Summary: Due to the above condition is currently all resolved (6) Recurrent urinary tract infection Is this a current diagnosis for this admission?: Yes Summary: The urine culture is all negative - Additional Information Resuscitation Status: Full Code Discharge Diet: Cardiac Discharge Activity: Activity As Tolerated Home Medications: Atorvastatin Calcium [Lipitor 40 mg Tablet] 40 mg PO DAILY 06/12/17 Donepezil HCl [Aricept] 10 mg PO DAILY 06/12/17 Lamotrigine [Lamotrigine ER] 100 mg PO DAILY 06/12/17 Losartan Potassium [Cozaar 100 mg Tablet] 100 mg PO DAILY 06/12/17 Potassium Chloride [Klor-Con 10 Meq Tablet.sa] 10 meq PO DAILY 06/12/17 Quetiapine Fumarate [Seroquel] 25 mg PO DAILY 06/12/17 Amlodipine Besylate [Norvasc 2.5 mg Tablet] 2.5 mg PO Q12 #60 tablet 06/17/17 Memantine HCl [Namenda] 5 mg PO DAILY #30 tablet 06/17/17 History of Present Illness Admission Date/PCP: 06/12/17 00:08 MARGO FLETCHER MD History of Present Illness: COREEN BHAKTA is a 81 year old female patient of Dr Fletcher brought to the ED by family with complain of change in mental status particularly regarding verbal communication. Son stated that patient have not been her usual self for couple of days and have not been eating or drinking enough. She will normally answer yes or no to questioning but not doing so in last couple of days. He claimed that patient had seizure like twitching movement prior to bring her to the ED. Her usual seizure activity is body twitching without loss of consciousness or tonic clonic movement.He claimed that she has been compliant with her anti seizure medication at home. Also, son reported that patient's seizure commonly occur during the night and cannot attest to her last seizure episode. Her initial evaluation in the ED was significant for severe hypernatremia and dehydration. Her morbidities include Alzheimer's disease, Hypertension, Hyperlipidemia, and Seizure disorder. Hospital Course Hospital Course: This is a 81-year-old female with a significant history of the dementia and is getting worse since last several month with the history of the seizures disorder brought to the emergency department by the familyWith the possible seizures and altered mental statusAnd patients find the severe dehydration's and hyponatremia and renal failure and patient was admitting in the hospital and started on IV fluid Patient's response very well with the IV fluid patient also given IV Rocephin until the cultures back and all negative Patient's p.o. intake is an affair in the hospital Still very weak and at this point discussed with the patient family and decided to send to the nursing facility for close monitoring for the next couple of weeks if patients remain stable and probably discharge home from the If the patient have a persistent dehydration's and failure to thrive discussed with the patient and the family about putting the PEG tube placement Recheck the CBC and Chem-7 in 1 week Physical Exam Vital Signs: Temp Pulse Resp BP Pulse Ox 98.4 F 78 18 139/65 H 98 06/17/17 04:00 06/17/17 04:00 06/17/17 04:00 06/17/17 04:00 06/17/17 04:00 Intake & Output 06/16/17 06/17/17 06/18/17 06:59 06:59 06:59 Intake Total 2063 850 Balance 2063 850 Weight 85.1 kg General appearance: PRESENT: no acute distress, well-developed, well-nourished, other Exam: The pleasant dementia Head exam: PRESENT: atraumatic, normocephalic Eye exam: PRESENT: conjunctiva pink, EOMI, PERRLA. ABSENT: scleral icterus Ear exam: PRESENT: normal external ear exam Mouth exam: PRESENT: moist, tongue midline Neck exam: ABSENT: carotid bruit, JVD, lymphadenopathy, thyromegaly Respiratory exam: PRESENT: clear to auscultation jesus. ABSENT: rales, rhonchi, wheezes Cardiovascular exam: PRESENT: RRR. ABSENT: diastolic murmur, rubs, systolic murmur Pulses: PRESENT: normal dorsalis pedis pul Vascular exam: PRESENT: normal capillary refill GI/Abdominal exam: PRESENT: normal bowel sounds, soft. ABSENT: distended, guarding, mass, organolmegaly, rebound, tenderness Rectal exam: PRESENT: deferred Extremities exam: PRESENT: full ROM. ABSENT: calf tenderness, clubbing, pedal edema Neurological exam: PRESENT: altered. ABSENT: motor sensory deficit Psychiatric exam: PRESENT: appropriate affect, normal mood. ABSENT: homicidal ideation, suicidal ideation Skin exam: PRESENT: dry, intact, warm. ABSENT: cyanosis, rash Results Laboratory Results: 06/16/17 04:05 06/17/17 03:48 06/17/17 03:48 Sodium 145.8 H Potassium 4.0 Chloride 107 Carbon Dioxide 28 Anion Gap 11 BUN 13 Creatinine 0.81 Est GFR ( Amer) > 60 Est GFR (Non-Af Amer) > 60 Glucose 105 Calcium 9.7 06/13/17 17:10 Catheterized Urine Urine Culture - Final NO GROWTH 2 DAYS Impressions: Head CT 06/13/17 00:00 IMPRESSION: NO ACUTE INTRACRANIAL PROCESS. NO SIGNIFICANT CHANGE FROM PRIOR STUDY. EVIDENCE OF ACUTE STROKE: NO. Chest X-Ray 06/14/17 00:00 IMPRESSION: NO ACUTE RADIOGRAPHIC FINDING IN THE CHEST. Transfer Plan - Time Spent with Patient Time spent with patient: Greater than 30 Minutes Plan Time Spent: Greater than 30 Minutes - Patient's discharge to the nursing facility Fall precautions And aspirations precaution Check a CBC and Chem-7 in the 4 days Physical therapy daily Discussed with the patient's son about the patient's current condition Encourage the more p.o. fluid
[2017-06-17] MEDS: LOSARTAN POTASSIUM 50 MG TABLET PO SCH (11:01)
[2017-06-17] MEDS: POTASSIUM CHLORIDE 10 MEQ TABLET.SA PO SCH (11:01)
[2017-06-17] MEDS: DONEPEZIL HCL 5 MG TABLET PO SCH (11:02)
[2017-06-17] MEDS: ENOXAPARIN SODIUM INJ 40 MG/0.4 ML DISP.SYRIN SUBCUT SCH (11:03)
[2017-06-17] MEDS: AMLODIPINE BESYLATE 2.5 MG TABLET PO SCH ×2 (11:08→21:42)
[2017-06-17] MEDS: LAMOTRIGINE 100 MG PO SCH (11:09)
[2017-06-17] MEDS: ATORVASTATIN CALCIUM 40 MG TABLET PO SCH (21:42)
[2017-06-17] MEDS: QUETIAPINE FUMARATE 25 MG TABLET PO SCH (21:42)
[2017-06-18] MEDS: LANSOPRAZOLE 30 MG TAB.RAP.DR PO SCH (05:55)
[2017-06-18] MEDS: LOSARTAN POTASSIUM 50 MG TABLET PO SCH (10:34)
[2017-06-18] MEDS: AMLODIPINE BESYLATE 2.5 MG TABLET PO SCH ×2 (10:37→22:33)
[2017-06-18] MEDS: DONEPEZIL HCL 5 MG TABLET PO SCH (10:37)
[2017-06-18] MEDS: POTASSIUM CHLORIDE 10 MEQ TABLET.SA PO SCH (10:37)
[2017-06-18] MEDS: ENOXAPARIN SODIUM INJ 40 MG/0.4 ML DISP.SYRIN SUBCUT SCH (10:37)
[2017-06-18] MEDS: LAMOTRIGINE 100 MG PO SCH (10:38)
[2017-06-18] MEDS: ATORVASTATIN CALCIUM 40 MG TABLET PO SCH (22:33)
[2017-06-18] MEDS: ACETAMINOPHEN 325 MG TABLET PO PRN (22:33)
[2017-06-18] MEDS: QUETIAPINE FUMARATE 25 MG TABLET PO SCH (22:33)
[2017-06-19] MEDS: LANSOPRAZOLE 30 MG TAB.RAP.DR PO SCH (05:20)
[2017-06-19] MEDS: POTASSIUM CHLORIDE 10 MEQ TABLET.SA PO SCH (10:44)
[2017-06-19] MEDS ORDERED: POTASSIUM CHLORIDE 20 MEQ/15 ML UDCUP PO ONE (10:45)
[2017-06-19] MEDS: DONEPEZIL HCL 5 MG TABLET PO SCH (11:06)
[2017-06-19] MEDS: ENOXAPARIN SODIUM INJ 40 MG/0.4 ML DISP.SYRIN SUBCUT SCH (11:07)
[2017-06-19] MEDS: LAMOTRIGINE 100 MG PO SCH (11:07)
[2017-06-19] MEDS: AMLODIPINE BESYLATE 2.5 MG TABLET PO SCH ×2 (13:00→22:43)
[2017-06-19] MEDS: LOSARTAN POTASSIUM 50 MG TABLET PO SCH (13:00)
[2017-06-19] MEDS: ATORVASTATIN CALCIUM 40 MG TABLET PO SCH (22:43)
[2017-06-19] MEDS: QUETIAPINE FUMARATE 25 MG TABLET PO SCH (22:43)
[2017-06-20] MEDS: LANSOPRAZOLE 30 MG TAB.RAP.DR PO SCH (05:22)
--- NOTE | 2017-06-20 08:52 | PDOC PROGRESS REPORT ---
Subjective Progress Note for:: 06/20/17 Subjective:: Patient is currently doing fair no other events happens for the weekend no other nursing concerns Patient still waiting for the transport of the rehab Physical Exam Vital Signs: Temp Pulse Resp BP Pulse Ox 98.2 F 90 19 146/67 H 96 06/20/17 04:00 06/20/17 07:00 06/20/17 04:00 06/20/17 04:00 06/20/17 04:00 Intake & Output 06/19/17 06/20/17 06/21/17 06:59 06:59 06:59 Intake Total 840 570 Balance 840 570 Weight 85.1 kg General appearance: PRESENT: no acute distress, well-developed, well-nourished Head exam: PRESENT: atraumatic, normocephalic Eye exam: PRESENT: conjunctiva pink, EOMI, PERRLA. ABSENT: scleral icterus Ear exam: PRESENT: normal external ear exam Mouth exam: PRESENT: moist, tongue midline Neck exam: PRESENT: full ROM. ABSENT: carotid bruit, JVD, lymphadenopathy, thyromegaly Respiratory exam: PRESENT: clear to auscultation jesus Cardiovascular exam: PRESENT: RRR. ABSENT: diastolic murmur, rubs, systolic murmur Pulses: PRESENT: normal dorsalis pedis pul, +2 pedal pulses bilateral Vascular exam: PRESENT: normal capillary refill GI/Abdominal exam: PRESENT: normal bowel sounds, soft. ABSENT: distended, guarding, mass, organolmegaly, rebound, tenderness Rectal exam: PRESENT: deferred Extremities exam: ABSENT: pedal edema Neurological exam: PRESENT: altered. ABSENT: motor sensory deficit Psychiatric exam: PRESENT: appropriate affect, normal mood. ABSENT: homicidal ideation, suicidal ideation Skin exam: PRESENT: dry, intact, warm. ABSENT: cyanosis, rash Results Laboratory Results: 06/16/17 04:05 06/17/17 03:48 Impressions: Head CT 06/13/17 00:00 IMPRESSION: NO ACUTE INTRACRANIAL PROCESS. NO SIGNIFICANT CHANGE FROM PRIOR STUDY. EVIDENCE OF ACUTE STROKE: NO. Chest X-Ray 06/14/17 00:00 IMPRESSION: NO ACUTE RADIOGRAPHIC FINDING IN THE CHEST. Assessment & Plan - Diagnosis (1) Hypokalemia Is this a current diagnosis for this admission?: Yes Plan: resolved (2) Alzheimer's dementia Qualifiers: Alzheimer's disease onset: late-onset Dementia behavioral disturbance: without behavioral disturbance Qualified Code(s): G30.1 - Alzheimer's disease with late onset; F02.80 - Dementia in other diseases classified elsewhere without behavioral disturbance; F02.80 - Dementia in other diseases classified elsewhere without behavioral disturbance; F02.80 - Dementia in other diseases classified elsewhere without behavioral disturbance Is this a current diagnosis for this admission?: Yes Plan: Worsening the dimensions discussed with the son on the bedside report regarding options to sending to the rehab unit versus home and versus ongoing problem with the dementia including the failure to thrive (3) Breakthrough seizure Is this a current diagnosis for this admission?: Yes Plan: Currently stable with the current medications (4) Dehydration with hypernatremia Is this a current diagnosis for this admission?: Yes Plan: We will stop the IV fluid and encourage the p.o. intake by planning the patient' s to discharge home versus rehab (5) Hypernatremia Is this a current diagnosis for this admission?: Yes Plan: Increase the p.o. intake (6) Recurrent urinary tract infection Is this a current diagnosis for this admission?: Yes Plan: Urine culture is all negative we will stop the IV antibiotic - Time Time Spent with patient: 15-24 minutes Medications reviewed and adjusted accordingly: Yes Anticipated discharge: SNF Within: when bed available, Other - Inpatient Certification Medical Necessity: Need Close Monitoring Due to Risk of Patient Decompensation Post Hospital Care: D/C Furniture Assembler Documentation - Plan Summary Plan Summary: Discussed with the caregiver and the bedside and discussed with the nursing staff patients waiting for the bed will check the Chem-7 today
[2017-06-20] MEDS: ENOXAPARIN SODIUM INJ 40 MG/0.4 ML DISP.SYRIN SUBCUT SCH (09:18)
[2017-06-20] MEDS: AMLODIPINE BESYLATE 2.5 MG TABLET PO SCH ×2 (09:18→22:10)
[2017-06-20] MEDS: LOSARTAN POTASSIUM 50 MG TABLET PO SCH (09:18)
[2017-06-20] MEDS: DONEPEZIL HCL 5 MG TABLET PO SCH (09:18)
[2017-06-20] MEDS: LAMOTRIGINE 100 MG PO SCH (09:18)
[2017-06-20] MEDS: POTASSIUM CHLORIDE 20 MEQ/15 ML UDCUP PO SCH (09:18)
[2017-06-20 09:43] LABS: ANION GAP 13 (5-19); BLOOD UREA NITROGEN 15 mg/dL (7-20); CALCIUM 9.8 mg/dL (8.4-10.2); CARBON DIOXIDE 28 mmol/L (22-30); CHLORIDE 105 mmol/L (98-107); CREATININE RESULT 0.78 mg/dL (0.52-1.25); GLUCOSE 132 mg/dL (75-110); POTASSIUM 3.8 mmol/L (3.6-5.0); SODIUM 146.3 mmol/L (137-145)
[2017-06-20] MEDS: ACETAMINOPHEN 325 MG TABLET PO PRN (18:31)
[2017-06-20] MEDS: ATORVASTATIN CALCIUM 40 MG TABLET PO SCH (22:10)
[2017-06-20] MEDS: QUETIAPINE FUMARATE 25 MG TABLET PO SCH (22:10)
[2017-06-21] MEDS: LANSOPRAZOLE 30 MG TAB.RAP.DR PO SCH (05:04)
--- NOTE | 2017-06-21 09:08 | PDOC PROGRESS REPORT ---
Subjective Progress Note for:: 06/21/17 Subjective:: Patient is currently doing fair no other events happens overnight patient still waiting to go to the rehab's son is on the bedside and discussed with the son about the patient's current condition and worsening the dementia Physical Exam Vital Signs: Temp Pulse Resp BP Pulse Ox 97.5 F 80 18 141/71 H 98 06/21/17 07:37 06/21/17 07:37 06/21/17 07:37 06/21/17 07:37 06/21/17 07:37 Intake & Output 06/20/17 06/21/17 06/22/17 06:59 06:59 06:59 Intake Total 570 240 Balance 570 240 Weight 85.1 kg General appearance: PRESENT: no acute distress, well-developed, well-nourished Head exam: PRESENT: atraumatic, normocephalic Eye exam: PRESENT: conjunctiva pink, EOMI, PERRLA. ABSENT: scleral icterus Ear exam: PRESENT: normal external ear exam Mouth exam: PRESENT: moist, tongue midline Neck exam: PRESENT: full ROM. ABSENT: carotid bruit, JVD, lymphadenopathy, thyromegaly Respiratory exam: PRESENT: clear to auscultation jesus Cardiovascular exam: PRESENT: RRR. ABSENT: diastolic murmur, rubs, systolic murmur Pulses: PRESENT: normal dorsalis pedis pul, +2 pedal pulses bilateral Vascular exam: PRESENT: normal capillary refill GI/Abdominal exam: PRESENT: normal bowel sounds, soft. ABSENT: distended, guarding, mass, organolmegaly, rebound, tenderness Rectal exam: PRESENT: deferred Neurological exam: PRESENT: altered. ABSENT: motor sensory deficit Psychiatric exam: PRESENT: appropriate affect, normal mood. ABSENT: homicidal ideation, suicidal ideation Skin exam: PRESENT: dry, intact, warm. ABSENT: cyanosis, rash Results Laboratory Results: 06/16/17 04:05 06/20/17 09:07 06/20/17 09:07 Sodium 146.3 H Potassium 3.8 Chloride 105 Carbon Dioxide 28 Anion Gap 13 BUN 15 Creatinine 0.78 Est GFR ( Amer) > 60 Est GFR (Non-Af Amer) > 60 Glucose 132 H Calcium 9.8 Impressions: Head CT 06/13/17 00:00 IMPRESSION: NO ACUTE INTRACRANIAL PROCESS. NO SIGNIFICANT CHANGE FROM PRIOR STUDY. EVIDENCE OF ACUTE STROKE: NO. Chest X-Ray 06/14/17 00:00 IMPRESSION: NO ACUTE RADIOGRAPHIC FINDING IN THE CHEST. Assessment & Plan - Diagnosis (1) Hypokalemia Is this a current diagnosis for this admission?: Yes Plan: resolved (2) Alzheimer's dementia Qualifiers: Alzheimer's disease onset: late-onset Dementia behavioral disturbance: without behavioral disturbance Qualified Code(s): G30.1 - Alzheimer's disease with late onset; F02.80 - Dementia in other diseases classified elsewhere without behavioral disturbance; F02.80 - Dementia in other diseases classified elsewhere without behavioral disturbance; F02.80 - Dementia in other diseases classified elsewhere without behavioral disturbance Is this a current diagnosis for this admission?: Yes Plan: Worsening the dimensions discussed with the son on the bedside report regarding options to sending to the rehab unit versus home and versus ongoing problem with the dementia including the failure to thrive (3) Breakthrough seizure Is this a current diagnosis for this admission?: Yes Plan: Currently stable with the current medications (4) Dehydration with hypernatremia Is this a current diagnosis for this admission?: Yes Plan: We will stop the IV fluid and encourage the p.o. intake by planning the patient' s to discharge home versus rehab (5) Hypernatremia Is this a current diagnosis for this admission?: Yes Plan: Increase the p.o. intake (6) Recurrent urinary tract infection Is this a current diagnosis for this admission?: Yes Plan: Urine culture is all negative we will stop the IV antibiotic - Time Time Spent with patient: 15-24 minutes Medications reviewed and adjusted accordingly: Yes Anticipated discharge: Home with Homehealth Within: when bed available - Inpatient Certification Medical Necessity: Need Close Monitoring Due to Risk of Patient Decompensation Post Hospital Care: D/C Follow Up Clerk Documentation - Plan Summary Plan Summary: Discussed with the son about the patient's current conditions and waiting for her to go to the rehab
[2017-06-21] MEDS: ACETAMINOPHEN 325 MG TABLET PO PRN (11:23)
[2017-06-21] MEDS: LOSARTAN POTASSIUM 50 MG TABLET PO SCH (11:23)
[2017-06-21] MEDS: POTASSIUM CHLORIDE 20 MEQ/15 ML UDCUP PO SCH (11:25)
[2017-06-21] MEDS: AMLODIPINE BESYLATE 2.5 MG TABLET PO SCH (11:25)
[2017-06-21] MEDS: DONEPEZIL HCL 5 MG TABLET PO SCH (11:25)
[2017-06-21] MEDS: LAMOTRIGINE 100 MG PO SCH (11:26)
[2017-06-21] MEDS: ENOXAPARIN SODIUM INJ 40 MG/0.4 ML DISP.SYRIN SUBCUT SCH (11:26)
[2017-06-21 12:29] VITALS: BP 133/60
== END 2017-06-21 15:46 | DRG 641 ==
LOC: ER 16:37 → UNDOADMIN 21:14 → EH 21:14 → 4N 23:25 → EH 06-12 00:08
PROVIDERS: ADMIT Family Medicine; ATTEND Family Medicine
DX: E87.0 Hyperosmolality and hypernatremia (principal); E86.0 Dehydration; E87.6 Hypokalemia; I10 Essential (primary) hypertension; E78.5 Hyperlipidemia, unspecified; R41.82 Altered mental status, unspecified; G40.909 Epilepsy, unspecified, not intractable, without status epilepticus; F02.80 Dementia in other diseases classified elsewhere, unspecified severity, without behavioral disturbance, psychotic disturbance, mood disturbance, and anxiety; G30.1 Alzheimer's disease with late onset; Z87.440 Personal history of urinary (tract) infections
CPT/HCPCS: 36415; 51701; 70450; 71010; 80048; 80053; 81001; 82962; 83735; 85025; 87086; 93005; 93010; 99285; G8978-GP; G8979-GP; J0696; J1650; J3480; J7030; J7060

== ENCOUNTER 2018-01-06 13:47 | Emergency (ER) | payer MEDICARE, MEDICAID ==
--- NOTE | 2018-01-06 14:12 | ER Document Report ---
ED Medical Screen (RME) - General Chief Complaint: Urinary Problem Stated Complaint: URINARY ISSUE Time Seen by Provider: 01/06/18 14:08 Notes: 82-year-old female Alzheimer's patient with increased urinary incontinence and urinary odor for the past few days. Has a history of urine infections. At this time patient is smiling, alert, pleasant in no distress. I have greeted and performed a rapid initial assessment of this patient. A comprehensive ED assessment and evaluation of the patient, analysis of test results and completion of the medical decision making process will be conducted by additional ED providers. TRAVEL OUTSIDE OF THE [place] IN LAST 30 DAYS: No - Related Data Allergies/Adverse Reactions: No Known Allergies Allergy (Verified 01/06/18 14:08) Past Medical History - Past Medical History Cardiac Medical History: Reports: Hx Hypertension Neurological Medical History: Reports: Hx Seizures Renal/ Medical History: Denies: Hx Peritoneal Dialysis - Immunizations History of Influenza Vaccine for 06/2017 - 11/2017 Season: Refused Physical Exam - Vital signs Vitals: Temp Pulse Resp BP Pulse Ox 98.6 F 91 18 127/111 H 97 01/06/18 14:02 01/06/18 14:02 01/06/18 14:02 01/06/18 14:02 01/06/18 14:02 Course - Vital Signs Vital signs: Temp Pulse Resp BP Pulse Ox 98.6 F 91 18 127/111 H 97 01/06/18 14:02 01/06/18 14:02 01/06/18 14:02 01/06/18 14:02 01/06/18 14:02
--- NOTE | 2018-01-06 15:07 | ER Document Report ---
ED General - General Chief Complaint: Urinary Problem Stated Complaint: URINARY ISSUE Time Seen by Provider: 01/06/18 14:08 Notes: 82-year-old female to the emergency department for concerns for UTI. Apparently he has been having some dysuria. Gets a urinary tract infection about every 3 months according to her son. Son is the primary caregiver of the patient. He denies any fever, chills, sweats. No cough. No chest pain. No other major issues. Patient has Alzheimer's dementia. Eating and drinking well. Followed by Dr. Jeb Corral TRAVEL OUTSIDE OF THE [place] IN LAST 30 DAYS: No - HPI Onset: Yesterday - Related Data Allergies/Adverse Reactions: No Known Allergies Allergy (Verified 01/06/18 14:08) Past Medical History - General Information source: Relative Cannot obtain history due to: Dementia - Social History Smoking Status: Unknown if Ever Smoked Cigarette use (# per day): No Chew tobacco use (# tins/day): No Frequency of alcohol use: None Drug Abuse: None Lives with: Family Family History: Reviewed & Not Pertinent Patient has suicidal ideation: No Patient has homicidal ideation: No - Past Medical History Cardiac Medical History: Reports: Hx Hypertension Neurological Medical History: Reports: Hx Seizures Renal/ Medical History: Denies: Hx Peritoneal Dialysis Review of Systems - Review of Systems -: Yes ROS unobtainable due to patient's medical condition Physical Exam - Vital signs Vitals: Temp Pulse Resp BP Pulse Ox 98.6 F 91 18 127/111 H 97 01/06/18 14:02 01/06/18 14:02 01/06/18 14:02 01/06/18 14:02 01/06/18 14:02 Interpretation: Normal - General General appearance: Appears well, Alert - HEENT Head: Normocephalic, Atraumatic Eyes: Normal Pupils: PERRL - Respiratory Respiratory status: No respiratory distress Chest status: Nontender Breath sounds: Normal Chest palpation: Normal - Cardiovascular Rhythm: Regular Heart sounds: Normal auscultation Murmur: No - Abdominal Inspection: Normal Distension: No distension Bowel sounds: Normal Tenderness: Nontender Organomegaly: No organomegaly - Back Back: Normal, Nontender - Extremities General upper extremity: Normal inspection, Nontender, Normal color, Normal ROM , Normal temperature General lower extremity: Normal inspection, Nontender, Normal color, Normal ROM , Normal temperature, Normal weight bearing. No: Katie's sign - Neurological Neuro grossly intact: Yes Cognition: Short term memory loss [place] Coma Scale Eye Opening: Spontaneous [place] Coma Scale Verbal: Oriented Disha Coma Scale Motor: Obeys Commands [place] Coma Scale Total: 15 Speech: Normal Sensory: Normal - Skin Skin Temperature: Warm Skin Moisture: Dry Skin Color: Normal Course - Re-evaluation Re-evalutation: 01/06/18 15:26 At this time there is no significant or convincing evidence of a urinary tract infection. Patient has a very benign exam. Vital signs are normal. No fever. Will prescribe some Keflex. Advised the son if symptoms get worse to begin antibiotics and follow-up with their regular doctor. Will culture urine just to be safe. - Vital Signs Vital signs: Temp Pulse Resp BP Pulse Ox 98.6 F 91 18 127/111 H 97 01/06/18 14:02 01/06/18 14:02 01/06/18 14:20 01/06/18 14:02 01/06/18 14:02 - Laboratory Laboratory results interpreted by me: 01/06/18 14:30 Urine Blood SMALL H Discharge - Discharge Clinical Impression: Dysuria Condition: Good Disposition: HOME, SELF-CARE Additional Instructions: Dysuria There is no evidence of an infection today. We have cultured urine. In the event that anything grows out we will let you know. Drink plenty of liquids. We will prescribe you an antibiotic. If his symptoms are getting worse please start it and follow-up with your regular doctor. If you begin to develop abdominal pain, back pain, fever, chills, sweats, nausea or vomiting or any other symptoms please return. If you develop any black tarry stools, bright red blood in the stool please return. Prescriptions: Cephalexin Monohydrate [Keflex 500 mg Capsule] 500 mg PO Q6H 5 Days #20 capsule
[2018-01-06 15:17] LABS: APPEARANCE,URINE CLEAR; BILIRUBIN,URINE NEGATIVE (NEGATIVE); COLOR,URINE YELLOW; GLUCOSE, URINE NEGATIVE (NEGATIVE); KETONES,URINE NEGATIVE (NEGATIVE); LEUKOCYTE ESTERASE,URINE NEGATIVE (NEGATIVE); NITRITE,URINE NEGATIVE (NEGATIVE); PROTEIN,URINE NEGATIVE (NEGATIVE); UROBILINOGEN,URINE NEGATIVE mg/dL (<2.0)
[2018-01-06 15:59] VITALS: BP 121/87
== END 2018-01-06 15:59 | disposition home or self-care (01) ==
LOC: ER 13:47
DX: R30.0 Dysuria (principal); G30.9 Alzheimer's disease, unspecified; F02.80 Dementia in other diseases classified elsewhere, unspecified severity, without behavioral disturbance, psychotic disturbance, mood disturbance, and anxiety; I10 Essential (primary) hypertension
CPT/HCPCS: 51701; 81001; 87086; 99283

== ENCOUNTER 2018-01-23 09:59 | Emergency (ER) | payer MEDICARE, MEDICAID ==
[2018-01-23] MEDS ORDERED: IPRATROPIUM/ALBUTEROL 0.5-2.5 MG/3 ML AMPUL NEB ONE ×2 (10:17→12:32)
[2018-01-23] MEDS ORDERED: BENZONATATE 100 MG CAPSULE PO ONE (10:17)
[2018-01-23] MEDS ORDERED: PREDNISONE 20 MG TABLET PO ONE (10:17)
--- NOTE | 2018-01-23 10:19 | ER Document Report ---
ED Medical Screen (RME) - General Chief Complaint: Vomiting Stated Complaint: SICK Time Seen by Provider: 01/23/18 10:11 Notes: RAPID MEDICAL EVALUATION DISCLOSURE I have seen this patient as part of a Rapid Medical Evaluation and, if applicable, placed any initially appropriate orders. The patient will be seen and fully evaluated, including a full history and physical exam, by a provider ( in Main ED or Fast Track) when a room becomes available. 82-year-old female here with complaints of cough ongoing for several weeks now. Today, she had coughing episodes so bad that she vomited afterwards. She saw her PCP, Dr. Corral, who prescribed her antibiotics and Tessalon Perles. The Tessalon Perles have been helping. The antibiotics were finished 1 week ago however the cough did not improve. They are here today due to the worsening of the cough and also due to the vomiting. EXAM Minimal to mild end expiratory wheezes TRAVEL OUTSIDE OF THE [place] IN LAST 30 DAYS: No - Related Data Allergies/Adverse Reactions: No Known Allergies Allergy (Verified 01/06/18 14:08) Past Medical History - Social History Chew tobacco use (# tins/day): No Frequency of alcohol use: None Drug Abuse: None - Past Medical History Cardiac Medical History: Reports: Hx Hypertension Neurological Medical History: Reports: Hx Seizures Renal/ Medical History: Denies: Hx Peritoneal Dialysis - Immunizations History of Influenza Vaccine for 06/2017 - 11/2017 Season: Refused Physical Exam - Vital signs Vitals: Temp Pulse Resp BP Pulse Ox 99.0 F 90 18 153/93 H 97 01/23/18 10:07 01/23/18 10:07 01/23/18 10:07 01/23/18 10:07 01/23/18 10:07 Course - Vital Signs Vital signs: Temp Pulse Resp BP Pulse Ox 99.0 F 90 18 153/93 H 97 01/23/18 10:07 01/23/18 10:07 01/23/18 10:07 01/23/18 10:07 01/23/18 10:07
[2018-01-23 11:18] LABS: ABSOLUTE EOSINOPHILS # (AUTO) 0.2 10^3/uL (0.0-0.6); ABSOLUTE LYMPHOCYTES (AUTO) 1.4 10^3/uL (0.5-4.7); ABSOLUTE MONOCYTES (AUTO) 0.3 10^3/uL (0.1-1.4); ABSOLUTE NEUT (AUTO) 3.7 10^3/uL (1.7-8.2); BASOPHILS % (AUTO) 0.8 % (0-2); EOSINOPHILS % (AUTO) 3.2 % (0-6); HEMATOCRIT 43.4 % (36.0-47.0); HEMOGLOBIN 13.9 g/dL (12.0-15.5); MEAN CORPUSCULAR HEMOGLOBIN 26.9 pg (27.0-33.4); MEAN CORPUSCULAR VOLUME 84 fl (80-97); MONOCYTES % (AUTO) 5.5 % (3-13); PLATELET COUNT 246 10^3/uL (150-450); RED BLOOD COUNT 5.16 10^6/uL (3.72-5.28); RED CELL DISTRIBUTION WIDTH 15.9 % (11.5-14.0); SEGMENTED NEUTROPHILS % (AUTO) 65.5 % (42-78); TOTAL CELLS COUNTED % (AUTO) 100 %; WHITE BLOOD COUNT 5.7 10^3/uL (4.0-10.5)
--- NOTE | 2018-01-23 11:18 | RADIOLOGY REPORT (SQ) ---
EXAM DESCRIPTION: CHEST 2 VIEWS COMPLETED DATE/TIME: 01/23/2018 10:44 am REASON FOR STUDY: cough; pneumonia? COMPARISON: June 2017 EXAM PARAMETERS: NUMBER OF VIEWS: two views TECHNIQUE: Digital Frontal and Lateral radiographic views of the chest acquired. RADIATION DOSE: NA LIMITATIONS: none FINDINGS: LUNGS AND PLEURA: No opacities, masses or pneumothorax. No pleural effusion. MEDIASTINUM AND HILAR STRUCTURES: No masses or contour abnormalities. HEART AND VASCULAR STRUCTURES: The configuration of the heart and mediastinal structures is unchanged . BONES: No acute findings. HARDWARE: None in the chest. OTHER: There is elevation of both hemidiaphragms unchanged from the previous study IMPRESSION: No significant interval change. No acute findings. Other findings as noted above TECHNICAL DOCUMENTATION: JOB ID: [id number] [employer]- All Rights Reserved Reading location - IP/workstation name: [email or web address]
[2018-01-23 11:47] LABS: ANION GAP 12 (5-19); BLOOD UREA NITROGEN 11 mg/dL (7-20); CALCIUM 9.7 mg/dL (8.4-10.2); CARBON DIOXIDE 29 mmol/L (22-30); CHLORIDE 107 mmol/L (98-107); GLUCOSE 118 mg/dL (75-110); POTASSIUM 3.8 mmol/L (3.6-5.0); SODIUM 147.7 mmol/L (137-145)
--- NOTE | 2018-01-23 12:58 | ER Document Report ---
ED General - General Chief Complaint: Vomiting Stated Complaint: SICK Time Seen by Provider: 01/23/18 10:11 Mode of Arrival: Ambulatory Information source: Relative Cannot obtain history due to: Dementia Notes: 82-year-old female with dementia, hypertension, hyperlipidemia presents with her son who is concerned for a cough. Son reports that the patient has had a cough for over 2 weeks. He describes it as a constant productive cough that causes the patient to vomit at times. Patient has been seen by her primary care physician for this and started on cefdinir and Tessalon Perles. Patient was also recently treated for a urinary tract infection with Keflex. Son reports that the patient had one episode of posttussive emesis. She is otherwise well, eating and drinking normally, having normal bowel movements. Patient is alert and oriented 1 at baseline. TRAVEL OUTSIDE OF THE [place] IN LAST 30 DAYS: No - HPI Onset: Other Onset/Duration: Persistent Associated symptoms: Productive cough, Vomiting. denies: Fever, Shortness of breath Exacerbated by: Supine Relieved by: Denies Similar symptoms previously: Yes Recently seen / treated by doctor: Yes - Related Data Allergies/Adverse Reactions: No Known Allergies Allergy (Verified 01/06/18 14:08) Past Medical History - General Information source: Relative, [facility] Records Cannot obtain history due to: Dementia - Social History Smoking Status: Unknown if Ever Smoked Chew tobacco use (# tins/day): No Frequency of alcohol use: None Drug Abuse: None Lives with: Family Family History: Reviewed & Not Pertinent Patient has suicidal ideation: No Patient has homicidal ideation: No - Past Medical History Cardiac Medical History: Reports: Hx Hypertension Neurological Medical History: Reports: Hx Seizures Renal/ Medical History: Denies: Hx Peritoneal Dialysis Review of Systems - Review of Systems -: Yes ROS unobtainable due to patient's medical condition Physical Exam - Vital signs Vitals: Temp Pulse Resp BP Pulse Ox 99.0 F 90 18 153/93 H 97 01/23/18 10:07 01/23/18 10:07 01/23/18 10:07 01/23/18 10:07 01/23/18 10:07 Interpretation: Normal, Hypertensive. No: Febrile - Notes Notes: PHYSICAL EXAMINATION: GENERAL: Well-appearing, well-nourished and in no acute distress. HEAD: Atraumatic, normocephalic. EYES: Pupils equal round and reactive to light, extraocular movements intact, conjunctiva are normal. ENT: Nares patent, oropharynx clear without exudates. Moist mucous membranes. NECK: Normal range of motion, supple without lymphadenopathy LUNGS: Diminished breath sounds bilaterally secondary to effort. No wheezes rales or rhonchi. HEART: Regular rate and rhythm without murmurs ABDOMEN: Soft, nontender, nondistended abdomen. No guarding, no rebound. No masses appreciated. Female : deferred Musculoskeletal: Normal range of motion, no pitting or edema. No cyanosis. NEUROLOGICAL: Cranial nerves grossly intact. Normal speech, normal gait. Normal sensory, motor exams PSYCH: Normal mood, normal affect. SKIN: Warm, Dry, normal turgor, erythematous fungal rash right inguinal fold Course - Re-evaluation Re-evalutation: 01/24/18 09:47 Laboratory 01/23/18 01/23/18 11:00 11:00 WBC 5.7 RBC 5.16 Hgb 13.9 Hct 43.4 MCV 84 MCH 26.9 L MCHC 32.0 RDW 15.9 H Plt Count 246 Seg Neutrophils % 65.5 Lymphocytes % 25.0 Monocytes % 5.5 Eosinophils % 3.2 Basophils % 0.8 Absolute Neutrophils 3.7 Absolute Lymphocytes 1.4 Absolute Monocytes 0.3 Absolute Eosinophils 0.2 Absolute Basophils 0.0 Sodium 147.7 H Potassium 3.8 Chloride 107 Carbon Dioxide 29 Anion Gap 12 BUN 11 Creatinine 0.63 Est GFR ( Amer) > 60 Est GFR (Non-Af Amer) > 60 Glucose 118 H Calcium 9.7 Chest X-Ray 01/23/18 10:17 IMPRESSION: No significant interval change. No acute findings. Other findings as noted above 01/24/18 09:48 82-year-old female with dementia, hypertension, hyperlipidemia presents with her son who is concerned for a cough. Son reports that the patient has had a cough for over 2 weeks. He describes it as a constant productive cough that causes the patient to vomit at times. Patient has been seen by her primary care physician for this and started on cefdinir and Tessalon Perles. Patient was also recently treated for a urinary tract infection with Keflex. Son reports that the patient had one episode of posttussive emesis. She is otherwise well, eating and drinking normally, having normal bowel movements. Patient is alert and oriented 1 at baseline. Patient was seen by myself upon arrival. Vital signs were reviewed. Patient is afebrile, normotensive and not hypoxic. Patient does not appear toxic or dehydrated. They are in no acute distress. Previous medical records and nursing notes reviewed. Significant findings include a well-appearing female who is sitting up and eating in bed. She does have diminished breath sounds but this is secondary to poor effort. Chest x-ray showed no evidence of pneumonia. Son's description of the patient' s cough sounds like the patient's cough is secondary to postnasal drip. Patient has been on several antibiotics over the last few weeks and I do not feel like she warrants more. CBC is without leukocytosis. CMP is within normal limits. Patient did receive a breathing treatment and her cough did improve mildly. Son was advised to follow-up with the patient's primary. I did provide the patient with a prescription for Tessalon Perles. Patient provided the opportunity to ask questions, and express concerns. Discharge instructions discussed. Patient is agreeable with discharge home. Return indications explained and discussed with the patient who displays understanding. Patient encouraged to return to the emergency department immediately with any concerns. 01/24/18 09:48 - Vital Signs Vital signs: Temp Pulse Resp BP Pulse Ox 98.7 F 87 20 120/75 95 01/23/18 14:46 01/23/18 14:46 01/23/18 14:46 01/23/18 14:46 01/23/18 14:46 - Laboratory Result Diagrams: 01/23/18 11:00 01/23/18 11:00 Laboratory results interpreted by me: 01/23/18 01/23/18 11:00 11:00 MCH 26.9 L RDW 15.9 H Sodium 147.7 H Glucose 118 H - Diagnostic Test Radiology reviewed: Image reviewed, Reports reviewed Discharge - Discharge Clinical Impression: Fungal rash of trunk, Cough Alzheimer's dementia Qualifiers: Alzheimer's disease onset: unspecified onset Dementia behavioral disturbance: without behavioral disturbance Qualified Code(s): G30.9 - Alzheimer's disease, unspecified Condition: Good Disposition: HOME, SELF-CARE Instructions: Diaper Rash ([facility]), Upper Respiratory Illness ([facility]) Additional Instructions: Please complete your current course of antibiotics. Follow up with your physician tomorrow for further care or return to the ED IMMEDIATELY if symptoms worsen or new concerns occur. If you cannot afford to follow up with your primary care physician a list of low cost clinics have been provided at the end of your discharge papers as well. Prescriptions: Benzonatate [Tessalon Perle 100 mg Capsule] 200 mg PO Q8HP PRN #40 cap PRN Reason: Nystatin/Triamcin [Nystatin-Triamcinolone Ointm] 60 gm TP Q8H #1 oint...g. Forms: Elevated Blood Pressure Referrals: MARGO FLETCHER MD [Primary Care Provider] - Follow up in 3-5 days
[2018-01-23 14:47] VITALS: BP 120/75
== END 2018-01-23 14:47 | disposition home or self-care (01) ==
LOC: ER 09:59
DX: R05 Cough (principal); B36.9 Superficial mycosis, unspecified; G30.9 Alzheimer's disease, unspecified; F02.80 Dementia in other diseases classified elsewhere, unspecified severity, without behavioral disturbance, psychotic disturbance, mood disturbance, and anxiety; I10 Essential (primary) hypertension; E78.5 Hyperlipidemia, unspecified
CPT/HCPCS: 94640 ×2; 99284; 36415; 87040; 85025; 80048; 71046; A9270 ×3; J7512; J7620

== ENCOUNTER 2018-03-16 15:27 | Emergency (ER) | payer MEDICARE, MEDICAID ==
[2018-03-16 15:36] VITALS: BP 148/83
--- NOTE | 2018-03-16 16:19 | ER Document Report ---
ED Medical Screen (RME) - General Chief Complaint: Altered Mental Status Stated Complaint: WEAKNESS Time Seen by Provider: 03/16/18 16:14 Mode of Arrival: Wheelchair Information source: Relative Notes: 82-year-old female presents to ED for complaint of being nonverbal for the last 3 weeks. Family states she was Alzheimer's and 3 weeks ago she had a seizure they took her to Dr. Frausto who increased her seizure medications but the patient has been nonverbal since then. Patient is family states they took her to Dr. Fletcher today for hand swelling for the last week. Dr. Fletcher ordered a x- ray which is already been done the family asked if he could get a CAT scan to see whether she had had a stroke 3 weeks ago and he stated she would have to go to the emergency room for that. Patient is nonverbal. I have greeted and performed a rapid initial assessment of this patient. A comprehensive ED assessment and evaluation of the patient, analysis of test results and completion of medical decision making process will be conducted by an additional ED providers. TRAVEL OUTSIDE OF THE [place] IN LAST 30 DAYS: No - Related Data Allergies/Adverse Reactions: No Known Allergies Allergy (Verified 03/16/18 16:14) Past Medical History - Past Medical History Cardiac Medical History: Reports: Hx Hypertension Neurological Medical History: Reports: Hx Seizures Renal/ Medical History: Denies: Hx Peritoneal Dialysis - Immunizations History of Influenza Vaccine for 06/2017 - 11/2017 Season: Refused Physical Exam - Vital signs Vitals: Temp Pulse Resp BP Pulse Ox 98.5 F 86 18 148/83 H 93 03/16/18 15:35 03/16/18 15:35 03/16/18 15:35 03/16/18 15:35 03/16/18 15:35 Course - Vital Signs Vital signs: Temp Pulse Resp BP Pulse Ox 98.5 F 86 18 148/83 H 93 03/16/18 15:35 03/16/18 15:35 03/16/18 15:35 03/16/18 15:35 03/16/18 15:35 Doctor's Discharge - Discharge Referrals: MARGO FLETCHER MD [Primary Care Provider] - Follow up as needed
--- NOTE | 2018-03-16 17:02 | RADIOLOGY REPORT (SQ) ---
EXAM DESCRIPTION: CT HEAD WITHOUT COMPLETED DATE/TIME: 03/16/2018 4:52 pm REASON FOR STUDY: possible stroke 3 weeks ago COMPARISON: June 2017 TECHNIQUE: Axial images acquired through the brain without intravenous contrast. Images reviewed wi th bone, brain and subdural windows. Additional sagittal and coronal reconstructions were generated. Images stored on PACS. All CT scanners at this facility use dose modulation, iterative reconstruction, and/or weight based d osing when appropriate to reduce radiation dose to as low as reasonably achievable (ALARA). [facility]: Dose Right [facility]: CareDose [facility]: Dose Right [facility]: Teradose 4D [facility]: Smart drchrono RADIATION DOSE: CT Rad equipment meets quality standard of care and radiation dose reduction techniq ues were employed. CTDIvol: 53.2 mGy. DLP: 964 mGy-cm.mGy. LIMITATIONS: None. FINDINGS: VENTRICLES: Prominent. CEREBRUM: No masses. No hemorrhage. No midline shift. Areas of low density in the white matter mos t likely due to chronic micro-vascular ischemic change. No evidence for acute infarction. CEREBELLUM: No masses. No hemorrhage. No alteration of density. No evidence for acute infarction. EXTRAAXIAL SPACES: Age-related involutional change. No fluid collections. No masses. ORBITS AND GLOBE: No intra- or extraconal masses. Normal contour of globe without masses. CALVARIUM: No fracture. PARANASAL SINUSES: No fluid or mucosal thickening. SOFT TISSUES: No mass or hematoma. OTHER: No other significant finding. IMPRESSION: CHRONIC CHANGES OF ATROPHY AND MICROVASCULAR ISCHEMIA. NO ACUTE PROCESS. EVIDENCE OF ACUTE STROKE: NO. TECHNICAL DOCUMENTATION: JOB ID: [id number] Quality ID # [id number]: Final reports with documentation of one or more dose reduction techniques (e.g., Au tomated exposure control, adjustment of the mA and/or kV according to patient size, use of iterative reconstruction technique) 2010 [employer]- All Rights Reserved Reading location - IP/workstation name: [email or web address]
[2018-03-16 17:27] LABS: ABSOLUTE BASOPHILS # (AUTO) 0.1 10^3/uL (0.0-0.2); ABSOLUTE EOSINOPHILS # (AUTO) 0.3 10^3/uL (0.0-0.6); ABSOLUTE LYMPHOCYTES (AUTO) 2.1 10^3/uL (0.5-4.7); ABSOLUTE MONOCYTES (AUTO) 0.5 10^3/uL (0.1-1.4); ABSOLUTE NEUT (AUTO) 3.2 10^3/uL (1.7-8.2); EOSINOPHILS % (AUTO) 4.2 % (0-6); HEMOGLOBIN 14.9 g/dL (12.0-15.5); LYMPHOCYTES % (AUTO) 34.4 % (13-45); MEAN CORPUSCULAR HGB CONC 33.1 g/dL (32.0-36.0); MEAN CORPUSCULAR VOLUME 84 fl (80-97); MONOCYTES % (AUTO) 8.2 % (3-13); PLATELET COUNT 345 10^3/uL (150-450); RED BLOOD COUNT 5.33 10^6/uL (3.72-5.28); RED CELL DISTRIBUTION WIDTH 15.5 % (11.5-14.0); SEGMENTED NEUTROPHILS % (AUTO) 52.2 % (42-78); TOTAL CELLS COUNTED % (AUTO) 100 %; WHITE BLOOD COUNT 6.1 10^3/uL (4.0-10.5)
[2018-03-16 17:36] LABS: PARTIAL THROMBOPLASTIN TIME 25.1 SEC (23.5-35.8); PROTHROMBIN TIME 13.7 SEC (11.4-15.4)
[2018-03-16 17:46] LABS: ALANINE AMINOTRANSFERASE 29 U/L (9-52); ALBUMIN 4.5 g/dL (3.5-5.0); ALKALINE PHOSPHATASE 143 U/L (38-126); ANION GAP 14 (5-19); ASPARTATE AMINO TRANSFERASE 27 U/L (14-36); BILIRUBIN,DIRECT 0.4 mg/dL (0.0-0.4); BILIRUBIN,TOTAL 0.7 mg/dL (0.2-1.3); BLOOD UREA NITROGEN 11 mg/dL (7-20); CALCIUM 10.3 mg/dL (8.4-10.2); CARBON DIOXIDE 29 mmol/L (22-30); CHLORIDE 105 mmol/L (98-107); GLUCOSE 106 mg/dL (75-110); POTASSIUM 4.2 mmol/L (3.6-5.0); SODIUM 148.4 mmol/L (137-145)
--- NOTE | 2018-03-16 19:20 | ER Document Report ---
ED General - General Chief Complaint: Altered Mental Status Stated Complaint: WEAKNESS Time Seen by Provider: 03/16/18 16:14 Mode of Arrival: Wheelchair Cannot obtain history due to: Dementia Notes: Patient is an 82-year-old female with advanced dementia, nonverbal for the past 3 weeks who presents with her 2 sons with concerns of being nonverbal since having a seizure 3 weeks ago. The patient has known history of epilepsy, takes lacosamide and apparently after the seizure has not spoken again. Family took the patient to her primary care doctor today due to concerns of swelling of the right hand. While there they requested imaging due to her no longer being verbal. There was subsequently referred to the emergency department. History is otherwise limited as patient is completely nonverbal and unable to participate in history taking. TRAVEL OUTSIDE OF THE [place] IN LAST 30 DAYS: No - Related Data Allergies/Adverse Reactions: No Known Allergies Allergy (Verified 03/16/18 16:14) Past Medical History - General Information source: Relative Cannot obtain history due to: Dementia - Social History Smoking Status: Never Smoker Chew tobacco use (# tins/day): No Frequency of alcohol use: None Drug Abuse: None Lives with: Family Family History: Reviewed & Not Pertinent Patient has suicidal ideation: No Patient has homicidal ideation: No - Past Medical History Cardiac Medical History: Reports: Hx Hypertension Neurological Medical History: Reports: Hx Seizures Renal/ Medical History: Denies: Hx Peritoneal Dialysis Review of Systems - Review of Systems -: Yes ROS unobtainable due to patient's medical condition Physical Exam - Vital signs Vitals: Temp Pulse Resp BP Pulse Ox 98.5 F 86 18 148/83 H 93 03/16/18 15:35 03/16/18 15:35 03/16/18 15:35 03/16/18 15:35 03/16/18 15:35 Interpretation: Hypertensive Notes: PHYSICAL EXAMINATION: GENERAL: Elderly but in no acute distress. HEAD: Atraumatic, normocephalic. EYES: Pupils equal round and reactive to light, extraocular movements intact, sclera anicteric, conjunctiva are normal. ENT: nares patent, oropharynx clear without exudates. Moderately dry mucous membranes. NECK: Normal range of motion, supple without lymphadenopathy LUNGS: Breath sounds clear to auscultation bilaterally and equal. No wheezes rales or rhonchi. HEART: Regular rate and rhythm without murmurs ABDOMEN: Soft, nontender, normoactive bowel sounds. No guarding, no rebound. No masses appreciated. EXTREMITIES: Mild swelling to the dorsum of the left hand. NEUROLOGICAL: Sitting in a wheelchair, asleep, does not wake to verbal stimuli PSYCH: Nonverbal SKIN: Warm, Dry, normal turgor, no rashes or lesions noted. Course - Re-evaluation Re-evalutation: 03/16/18 19:18 Family presents with concerns of their mother having not spoken in 3 weeks since she had her last seizure. They referred by the primary care doctor for consideration of a CT of the head. CT the head does not show any acute findings. Lab work unremarkable. There are no additional concerns of the family other than the patient has not spoken in 3 weeks and they want to be sure that she had not had an acute stroke as the etiology. The patient does have advanced dementia and was profoundly demented prior to discontinuing speaking. Clinical history and exam are most consistent with probable advancement of her underlying Alzheimer's as opposed to an acute ischemic event. Regarding the patient's left hand swelling: X-ray does show soft tissue swelling but no evidence of an acute fracture or dislocation. There is no edema on the remainder of the upper extremity to suggest a DVT in the family would like to avoid an ultrasound at this time to further clarify. At this time will discharge with return precautions and follow-up recommendations. Verbal discharge instructions given a the bedside and opportunity for questions given. Medication warnings reviewed. Family is in agreement with this plan and has verbalized understanding of return precautions and the need for primary care follow-up in the next 24-72 hours. - Vital Signs Vital signs: Temp Pulse Resp BP Pulse Ox 98.5 F 86 18 148/83 H 93 03/16/18 15:35 03/16/18 15:35 03/16/18 15:35 03/16/18 15:35 03/16/18 15:35 - Laboratory Result Diagrams: 03/16/18 17:13 03/16/18 17:13 Laboratory results interpreted by me: 03/16/18 03/16/18 17:13 17:13 RBC 5.33 H RDW 15.5 H Sodium 148.4 H Calcium 10.3 H Alkaline Phosphatase 143 H - Diagnostic Test Radiology reviewed: Image reviewed, Reports reviewed Radiology results interpreted by me: 03/17/18 04:17 CT head: No acute intracranial bleed Discharge - Discharge Clinical Impression: Nonverbal Alzheimer's dementia Qualifiers: Alzheimer's disease onset: unspecified onset Dementia behavioral disturbance: without behavioral disturbance Qualified Code(s): G30.9 - Alzheimer's disease, unspecified Condition: Stable Disposition: HOME, SELF-CARE Additional Instructions: Your mother's CT scan does not show any acute stroke. Please follow-up with your primary doctor regarding her hand swelling. Return for any additional concerns you may have. Referrals: MARGO FLETCHER MD [Primary Care Provider] - Follow up as needed
== END 2018-03-16 19:41 | disposition home or self-care (01) ==
LOC: ER 15:27
DX: G30.9 Alzheimer's disease, unspecified (principal); F02.80 Dementia in other diseases classified elsewhere, unspecified severity, without behavioral disturbance, psychotic disturbance, mood disturbance, and anxiety; R47.9 Unspecified speech disturbances; I10 Essential (primary) hypertension; G40.909 Epilepsy, unspecified, not intractable, without status epilepticus; Z79.899 Other long term (current) drug therapy; M79.89 Other specified soft tissue disorders
CPT/HCPCS: 36415; 70450; 80053; 85025; 85610; 85730; 99285

== ENCOUNTER → 2018-03-16 | Outpatient (CLI) | payer MEDICARE, MEDICAID ==
--- NOTE | 2018-03-16 15:28 | RADIOLOGY REPORT (SQ) ---
EXAM DESCRIPTION: HAND LEFT 3 VIEWS COMPLETED DATE/TIME: 03/16/2018 3:17 pm REASON FOR STUDY: M79.642 PAIN IN LEFT HAND M79.642 PAIN IN LEFT HAND COMPARISON: None. EXAM PARAMETERS: NUMBER OF VIEWS: Three views. TECHNIQUE: AP, lateral and oblique radiographic images acquired of the left hand. LIMITATIONS: None. FINDINGS: MINERALIZATION: Normal. BONES: No acute osseous abnormality. JOINTS: Degenerative joint disease in the interphalangeal joints and in the 1st carpometacarpal joint . These changes are most prominent in the 1st proximal interphalangeal joint and in the 3rd distal i nterphalangeal joint. SOFT TISSUES: Soft tissue swelling in the hand. OTHER: No other significant finding. IMPRESSION: Soft tissue swelling with no fracture. Degenerative joint disease. TECHNICAL DOCUMENTATION: JOB ID: [id number] [employer]- All Rights Reserved Reading location - IP/workstation name: [email or web address]
== END ==
LOC: RAD 14:51
PROVIDERS: ATTEND Family Medicine
DX: M79.642 Pain in left hand (principal); M79.89 Other specified soft tissue disorders

== ENCOUNTER 2018-03-23 12:13 | Inpatient (IN) | payer MEDICARE, MEDICAID ==
[2018-03-23 12:34] LABS: ABSOLUTE EOSINOPHILS # (AUTO) 0.3 10^3/uL (0.0-0.6); ABSOLUTE LYMPHOCYTES (AUTO) 2.4 10^3/uL (0.5-4.7); ABSOLUTE MONOCYTES (AUTO) 0.5 10^3/uL (0.1-1.4); ABSOLUTE NEUT (AUTO) 3.3 10^3/uL (1.7-8.2); BASOPHILS % (AUTO) 0.5 % (0-2); EOSINOPHILS % (AUTO) 4.2 % (0-6); HEMATOCRIT 39.8 % (36.0-47.0); LYMPHOCYTES % (AUTO) 36.6 % (13-45); MEAN CORPUSCULAR HEMOGLOBIN 27.6 pg (27.0-33.4); MEAN CORPUSCULAR HGB CONC 32.7 g/dL (32.0-36.0); MEAN CORPUSCULAR VOLUME 85 fl (80-97); MONOCYTES % (AUTO) 8.1 % (3-13); PLATELET COUNT 339 10^3/uL (150-450); RED CELL DISTRIBUTION WIDTH 15.4 % (11.5-14.0); SEGMENTED NEUTROPHILS % (AUTO) 50.6 % (42-78); TOTAL CELLS COUNTED % (AUTO) 100 %; WHITE BLOOD COUNT 6.4 10^3/uL (4.0-10.5)
[2018-03-23 12:36] LABS: INTERNATIONAL RATION (INR) 1.03; PROTHROMBIN TIME 14.1 SEC (11.4-15.4)
[2018-03-23 12:44] LABS: ALANINE AMINOTRANSFERASE 26 U/L (9-52); ALKALINE PHOSPHATASE 120 U/L (38-126); ANION GAP 12 (5-19); ASPARTATE AMINO TRANSFERASE 27 U/L (14-36); BILIRUBIN,DIRECT 0.2 mg/dL (0.0-0.4); BILIRUBIN,TOTAL 0.7 mg/dL (0.2-1.3); BLOOD UREA NITROGEN 11 mg/dL (7-20); CALCIUM 9.6 mg/dL (8.4-10.2); CARBON DIOXIDE 29 mmol/L (22-30); CHLORIDE 109 mmol/L (98-107); GLUCOSE 112 mg/dL (75-110); POTASSIUM 3.6 mmol/L (3.6-5.0); SODIUM 150.2 mmol/L (137-145); TOTAL PROTEIN 7.3 g/dL (6.3-8.2)
--- NOTE | 2018-03-23 12:53 | ER Document Report ---
ED Fever - General Chief Complaint: Fever Stated Complaint: FEVER Time Seen by Provider: 03/23/18 12:43 Mode of Arrival: Stretcher Information source: Relative TRAVEL OUTSIDE OF THE [place] IN LAST 30 DAYS: No - HPI Patient complains to provider of: Fever Onset: This morning Notes: Patient is an 82-year-old female coming from home with fever, lives with son who is her primary caregiver, however home nursing staff came out today and noted patient to have a fever, recommended she come to the emergency room for evaluation, son does report that she has had some congestion and a cough over the last week, he has been giving her some [id number] cough medication, she had a seizure approximately 3-1/2 weeks ago and her seizure medications were increased, since then she has had a poor appetite and poor p.o. intake, there is no vomiting or diarrhea, he denies any change in her urinary pattern, she does have some left hand swelling that has been going on for the past few weeks as well, patient is nonverbal, information was all obtained from her son - Related Data Allergies/Adverse Reactions: No Known Allergies Allergy (Verified 03/16/18 16:14) Past Medical History - General Information source: Relative - Social History Smoking Status: Never Smoker Family History: Reviewed & Not Pertinent - Past Medical History Cardiac Medical History: Reports: Hx Hypertension Neurological Medical History: Reports: Hx Seizures Renal/ Medical History: Denies: Hx Peritoneal Dialysis Review of Systems - Review of Systems Constitutional: Fever EENT: No symptoms reported Cardiovascular: No symptoms reported Respiratory: See HPI Gastrointestinal: See HPI Genitourinary: No symptoms reported Female Genitourinary: No symptoms reported Musculoskeletal: No symptoms reported Skin: No symptoms reported Hematologic/Lymphatic: No symptoms reported Neurological/Psychological: See HPI -: Yes All other systems reviewed and negative Physical Exam - Vital signs Vitals: Temp 99.6 F 03/23/18 12:23 Interpretation: Normal - General General appearance: Other In distress: None - HEENT Head: Normocephalic Eyes: Normal Conjunctiva: Normal Eyelashes: Normal Ears: Normal External canal: Normal Tympanic membrane: Normal Nasal: Clear rhinorrhea Mucous membranes: Dry Neck: Normal - Respiratory Respiratory status: No respiratory distress Chest status: Nontender Breath sounds: Rhonchi Chest palpation: Normal - Cardiovascular Rhythm: Regular Heart sounds: Normal auscultation Murmur: No - Abdominal Inspection: Normal Distension: No distension Bowel sounds: Normal Tenderness: Nontender Organomegaly: No organomegaly - Extremities Hand: Other - mild swelling to left hand - Neurological [place] Coma Scale Eye Opening: None [place] Coma Scale Verbal: None - Skin Skin Temperature: Warm Skin Moisture: Dry Skin Color: Normal Course - Re-evaluation Re-evalutation: 03/23/18 13:59 Patient with evidence of urinary tract infection, started on antibiotics, also hypernatremic, IV fluids ordered, discussed with primary care provider, Dr. Fletcher who agrees to admit for further evaluation and treatment - Vital Signs Vital signs: Temp Pulse Resp BP Pulse Ox 99.6 F 03/23/18 12:23 - Laboratory Result Diagrams: 03/23/18 11:50 03/23/18 11:50 Laboratory results interpreted by me: 03/23/18 03/23/18 03/23/18 11:50 11:50 12:45 RDW 15.4 H Sodium 150.2 H Chloride 109 H Glucose 112 H Lactic Acid Urine Protein 100 H Urine Blood SMALL H Urine Urobilinogen 2.0 H Ur Leukocyte Esterase LARGE H 03/23/18 12:50 RDW Sodium Chloride Glucose Lactic Acid 2.6 H Urine Protein Urine Blood Urine Urobilinogen Ur Leukocyte Esterase - Diagnostic Test Radiology reviewed: Image reviewed, Reports reviewed - EKG Interpretation by Me EKG shows normal: Sinus rhythm Rate: Normal Rhythm: NSR Discharge - Discharge Clinical Impression: Dehydration with hypernatremia Urinary tract infection Qualifiers: Urinary tract infection type: site unspecified Hematuria presence: without hematuria Qualified Code(s): N39.0 - Urinary tract infection, site not specified Condition: Stable Disposition: ADMITTED INPATIENT Admitting Provider: [facility] Admitted: Medical Floor Referrals: MARGO FLETCHER MD [Primary Care Provider] - Follow up as needed
[2018-03-23 13:19] LABS: APPEARANCE,URINE CLOUDY; BILIRUBIN,URINE NEGATIVE (NEGATIVE); GLUCOSE, URINE NEGATIVE (NEGATIVE); KETONES,URINE NEGATIVE (NEGATIVE); LEUKOCYTE ESTERASE,URINE LARGE (NEGATIVE); NITRITE,URINE NEGATIVE (NEGATIVE); PROTEIN,URINE 100 mg/dL (NEGATIVE)
[2018-03-23 13:21] LABS: COLOR,URINE YELLOW
--- NOTE | 2018-03-23 13:30 | RADIOLOGY REPORT (SQ) ---
EXAM DESCRIPTION: CHEST SINGLE VIEW COMPLETED DATE/TIME: 03/23/2018 1:19 pm REASON FOR STUDY: bed 11 sepsis protocol COMPARISON: Chest films 01/23/2018, 06/14/2017 CT chest 10/18/2016 EXAM PARAMETERS: NUMBER OF VIEWS: One view. TECHNIQUE: Single frontal radiographic view of the chest acquired. RADIATION DOSE: NA LIMITATIONS: None. FINDINGS: LUNGS AND PLEURA: No opacities, masses or pneumothorax. No pleural effusion. MEDIASTINUM AND HILAR STRUCTURES: No masses. Contour normal. HEART AND VASCULAR STRUCTURES: Heart normal in size. Normal vasculature. BONES: No acute findings. HARDWARE: None in the chest. OTHER: No other significant finding. IMPRESSION: NO ACUTE RADIOGRAPHIC FINDING IN THE CHEST. TECHNICAL DOCUMENTATION: JOB ID: [id number] [employer]- All Rights Reserved Reading location - IP/workstation name: [email or web address]
[2018-03-23] MEDS ORDERED: CEFTRIAXONE INJ 1000 MG VIAL IV ONE (13:40)
[2018-03-23] MEDS ORDERED: NORMAL SALINE 1000 ML 1,000 ML IV ONE (13:46)
[2018-03-23 13:47] LABS: VENOUS BLOOD BASE EXCESS 2.9 mmol/L; VENOUS BLOOD HCO3 27.9 mmol/L (20-32); VENOUS BLOOD PCO2 44.2 mmHg (35-63); VENOUS BLOOD PH 7.42 (7.30-7.42)
[2018-03-23] MEDS ORDERED: IPRATROPIUM/ALBUTEROL 0.5-2.5 MG/3 ML AMPUL NEB PRN (13:54)
[2018-03-23] MEDS ORDERED: ACETAMINOPHEN 325 MG TABLET PO PRN (13:54)
[2018-03-23] MEDS ORDERED: DEXTROSE 5%-1/2 NORMAL SALINE 1,000 ML IV PRN (13:59)
[2018-03-23] MEDS: HEPARIN SOD (PORCINE) 5,000 UNIT/ML 1 ML SYRINGE SUBCUT SCH ×2 (18:09→20:43)
[2018-03-23] MEDS: DOCUSATE SODIUM 100 MG CAPSULE PO SCH (18:10)
--- NOTE | 2018-03-23 18:20 | PDOC H&P ---
History of Present Illness Admission Date/PCP: 03/23/18 14:41 MARGO FLETCHER MD Patient complains of: Fever History of Present Illness: COREEN BHAKTA is a 82 year old female This is a 82-year-old female with the history of the alzemer DementiaAnd a history of the recurrent urinary tract infections history of the seizures disorder and recently increased doses of medications by our neurology and according to the son patient is kind of more nonverbal brought to the office because of the hand swelling order the x-ray of the hand which is no acute fractureAnd patients decided at that point went to the ER and had a CT of the head was done with no acute strokes today's the home health nurse noticed the patient had a fever 99.5 call the EMS given 950 mg of Tylenol patient has some low-grade temperature in the ER and patients found to be urinary tract infections per ER physicians call for the admissions When I saw the patient in the ER patients pretty much nonverbal as usual due to the significant worsening underlying dementia Other than that patients not probably getting any history from because of the dementia but according to the sonPatient is currently more declining Past Medical History Cardiac Medical History: Reports: Hypertension Neurological Medical History: Reports: Seizures Neurological History Note: Seizures disorder Musculoskeltal Medical History: Reports: Arthritis Psychiatric Medical History: Reports: Dementia, Depression Social History Smoking Status: Never Smoker Frequency of Alcohol Use: None Drugs: None Family History Family History: Reviewed & Not Pertinent Parental Family History Reviewed: Yes Children Family History Reviewed: Yes Sibling(s) Family History Reviewed.: Yes Medication/Allergy Home Medications: Amlodipine Besylate [Norvasc 2.5 mg Tablet] 2.5 mg PO Q12 03/23/18 Atorvastatin Calcium [Lipitor 40 mg Tablet] 40 mg PO DAILY 03/23/18 Donepezil HCl [Aricept] 10 mg PO DAILY 03/23/18 Lamotrigine [Lamictal] 150 mg PO Q12 03/23/18 Loratadine [Claritin 10 mg Tablet] 10 mg PO DAILY 03/23/18 Memantine HCl [Namenda] 5 mg PO DAILY 03/23/18 Potassium Chloride [Kaon-Cl 20 Meq/15 Ml Udcup] 7.5 ml PO DAILY 03/23/18 Allergies/Adverse Reactions: No Known Allergies Allergy (Verified 03/16/18 16:14) Review of Systems ROS unobtainable: Due to mental status All systems: reviewed and no additional remarkable complaints except as stated Physical Exam Vital Signs: Temp Pulse Resp BP Pulse Ox 99.6 F 17 137/75 H 94 03/23/18 12:23 03/23/18 14:01 03/23/18 14:01 03/23/18 14:01 Physical Exam: Patients pretty much nonverbal due to the underlying dementia General appearance: PRESENT: no acute distress, well-developed, well-nourished Head exam: PRESENT: atraumatic, normocephalic Eye exam: PRESENT: conjunctiva pink, EOMI, PERRLA. ABSENT: scleral icterus Ear exam: PRESENT: normal external ear exam Mouth exam: PRESENT: moist, tongue midline Neck exam: PRESENT: full ROM. ABSENT: carotid bruit, JVD, lymphadenopathy, thyromegaly Respiratory exam: PRESENT: clear to auscultation jesus Cardiovascular exam: PRESENT: RRR. ABSENT: diastolic murmur, rubs, systolic murmur Pulses: PRESENT: normal dorsalis pedis pul, +2 pedal pulses bilateral Vascular exam: PRESENT: normal capillary refill GI/Abdominal exam: PRESENT: normal bowel sounds, soft. ABSENT: distended, guarding, mass, organolmegaly, rebound, tenderness Rectal exam: PRESENT: deferred Neurological exam: PRESENT: alert, awake. ABSENT: motor sensory deficit Psychiatric exam: PRESENT: appropriate affect, normal mood. ABSENT: homicidal ideation, suicidal ideation Skin exam: PRESENT: dry, intact, warm. ABSENT: cyanosis, rash Results Impressions: Chest X-Ray 03/23/18 12:22 IMPRESSION: NO ACUTE RADIOGRAPHIC FINDING IN THE CHEST. Assessment & Plan - Diagnosis (1) Fever Qualifiers: Encounter type: initial encounter Is this a current diagnosis for this admission?: Yes Plan: Most likely from urinary tract infections start the patient on IV Rocephin blood culture urine culture and IV fluid (2) Urinary tract infection Qualifiers: Urinary tract infection type: site unspecified Hematuria presence: without hematuria Qualified Code(s): N39.0 - Urinary tract infection, site not specified Is this a current diagnosis for this admission?: Yes Plan: Start the patient on IV Rocephin wait for the culture and sensitivity (3) Alzheimer's dementia Qualifiers: Dementia behavioral disturbance: with behavioral disturbance Is this a current diagnosis for this admission?: Yes Plan: Patients currently see a neurologyWorsening the more (4) Hypernatremia Is this a current diagnosis for this admission?: Yes Plan: Due to the dehydration's will start the patient on IV fluid (5) Seizure disorder Is this a current diagnosis for this admission?: Yes Plan: Since recently have increased the seizures medications due to the breakthrough seizures and according to the sons that patient is more nonverbal discussed with the son about to discuss the neurologist to reduce the chance of different medication as outpatient - Time Time Spent: 30 to 50 Minutes Medications reviewed and adjusted accordingly: Yes Anticipated discharge: Home with Homehealth Within: Other - Inpatient Certification Medical Necessity: Need Close Monitoring Due to Risk of Patient Decompensation, Need For IV Fluids, Need for IV Antibiotics Post Hospital Care: D/C Coater Operator Insulation Board Documentation - Plan Summary Plan Summary: Admit the patient and the medical floor start the IV antibiotic and IV fluid discussed with the son about the patient's current conditions
[2018-03-23] MEDS: AMLODIPINE BESYLATE 2.5 MG TABLET PO SCH (18:46)
[2018-03-23] MEDS ORDERED: (PENDING PHARMACY ID) (Lamotrigine [Lamictal] 150 MG) PO SCH (22:00)
[2018-03-23] MEDS ORDERED: LAMOTRIGINE 100 MG TABLET PO SCH (22:00)
--- NOTE | 2018-03-23 22:57 | EKG REPORT ---
SEVERITY:- ABNORMAL ECG - SINUS RHYTHM LEFT VENTRICULAR HYPERTROPHY : Confirmed by: Gill Mcgovern 23-Mar-2018 22:56:22
[2018-03-24 04:37] LABS: ABSOLUTE BASOPHILS # (AUTO) 0.1 10^3/uL (0.0-0.2); ABSOLUTE EOSINOPHILS # (AUTO) 0.3 10^3/uL (0.0-0.6); ABSOLUTE LYMPHOCYTES (AUTO) 2.4 10^3/uL (0.5-4.7); ABSOLUTE MONOCYTES (AUTO) 0.5 10^3/uL (0.1-1.4); ABSOLUTE NEUT (AUTO) 2.6 10^3/uL (1.7-8.2); BASOPHILS % (AUTO) 1.2 % (0-2); EOSINOPHILS % (AUTO) 4.3 % (0-6); HEMATOCRIT 37.5 % (36.0-47.0); HEMOGLOBIN 12.1 g/dL (12.0-15.5); LYMPHOCYTES % (AUTO) 40.3 % (13-45); MEAN CORPUSCULAR HEMOGLOBIN 27.5 pg (27.0-33.4); MEAN CORPUSCULAR HGB CONC 32.4 g/dL (32.0-36.0); MEAN CORPUSCULAR VOLUME 85 fl (80-97); MONOCYTES % (AUTO) 9.2 % (3-13); PLATELET COUNT 275 10^3/uL (150-450); RED BLOOD COUNT 4.41 10^6/uL (3.72-5.28); RED CELL DISTRIBUTION WIDTH 15.6 % (11.5-14.0); TOTAL CELLS COUNTED % (AUTO) 100 %; WHITE BLOOD COUNT 5.9 10^3/uL (4.0-10.5)
[2018-03-24 04:56] LABS: ANION GAP 11 (5-19); BLOOD UREA NITROGEN 10 mg/dL (7-20); CALCIUM 9.1 mg/dL (8.4-10.2); CARBON DIOXIDE 26 mmol/L (22-30); CHLORIDE 113 mmol/L (98-107); GLUCOSE 106 mg/dL (75-110); POTASSIUM 3.6 mmol/L (3.6-5.0); SODIUM 149.9 mmol/L (137-145)
[2018-03-24] MEDS: HEPARIN SOD (PORCINE) 5,000 UNIT/ML 1 ML SYRINGE SUBCUT SCH ×2 (05:24→15:48)
[2018-03-24] MEDS: LAMOTRIGINE 100 MG TABLET PO SCH ×2 (05:38→16:54)
[2018-03-24] MEDS ORDERED: CEFTRIAXONE 1 GM/D5W RTU 1 GM/50 ML RTUPB IV SCH (10:00)
[2018-03-24] MEDS ORDERED: (PENDING PHARMACY ID) (Memantine Hcl [Namenda] 5 MG) PO SCH (10:00)
[2018-03-24] MEDS ORDERED: (PENDING PHARMACY ID) (Donepezil Hcl [Aricept] 10 MG) PO SCH (10:00)
[2018-03-24] MEDS: LORATADINE 10 MG TABLET PO SCH (10:22)
[2018-03-24] MEDS: DOCUSATE SODIUM 100 MG CAPSULE PO SCH ×2 (10:22→16:53)
[2018-03-24] MEDS: MEMANTINE HCL 10 MG TABLET PO SCH (10:22)
[2018-03-24] MEDS: POTASSIUM CHLORIDE 20 MEQ/15 ML UDCUP PO SCH (10:22)
[2018-03-24] MEDS: AMLODIPINE BESYLATE 2.5 MG TABLET PO SCH (10:22)
[2018-03-24] MEDS: DONEPEZIL HCL 5 MG TABLET PO SCH (10:22)
[2018-03-24] MEDS: ATORVASTATIN CALCIUM 40 MG TABLET PO SCH (10:22)
[2018-03-24] MEDS: CEFTRIAXONE SODIUM 1,000 MG in DEXTROSE 5%-WATER 50 ML IV SCH (12:08)
[2018-03-24] MEDS ORDERED: POTASSIUM CHLORIDE 20 MEQ/15 ML UDCUP PO ONE (12:30)
[2018-03-24] MEDS ORDERED: DONEPEZIL HCL 5 MG TABLET PO ONE (12:30)
[2018-03-24] MEDS ORDERED: AMLODIPINE BESYLATE 2.5 MG TABLET PO ONE (12:30)
[2018-03-24] MEDS ORDERED: DOCUSATE SODIUM 100 MG CAPSULE PO ONE (12:30)
[2018-03-24] MEDS ORDERED: LORATADINE 10 MG TABLET PO ONE (12:30)
[2018-03-24] MEDS ORDERED: ATORVASTATIN CALCIUM 40 MG TABLET PO ONE (12:30)
[2018-03-24] MEDS ORDERED: MEMANTINE HCL 10 MG TABLET PO ONE (12:30)
--- NOTE | 2018-03-24 13:39 | PDOC PROGRESS REPORT ---
Subjective Progress Note for:: 03/24/18 Subjective:: Patient is currently doing same Still nonverbal Patient's response with the son but not with the nursing staff much As per very extensive discussions with the son after increasing the Lamictal dose by the neurologist patient had with this hand swelling and also worsening the patient's alertness Reason For Visit: UTI/SEPSIS Physical Exam Vital Signs: Temp Pulse Resp BP Pulse Ox 98.6 F 77 16 151/90 H 98 03/24/18 12:25 03/24/18 12:25 03/24/18 12:25 03/24/18 12:25 03/24/18 12:25 Intake & Output 03/23/18 03/24/18 03/25/18 06:59 06:59 06:59 Intake Total 840 Output Total 250 Balance 590 Weight 84.9 kg General appearance: PRESENT: no acute distress Eye exam: PRESENT: PERRLA Mouth exam: PRESENT: neck supple Respiratory exam: PRESENT: clear to auscultation jesus Cardiovascular exam: PRESENT: +S1, +S2 GI/Abdominal exam: PRESENT: normal bowel sounds, soft Extremities exam: PRESENT: joint swelling. ABSENT: pedal edema Neurological exam: PRESENT: altered Skin exam: PRESENT: dry Results Laboratory Results: 03/24/18 03:47 03/24/18 03:47 03/23/18 03/24/18 03/24/18 17:00 03:47 03:47 WBC 5.9 RBC 4.41 Hgb 12.1 Hct 37.5 MCV 85 MCH 27.5 MCHC 32.4 RDW 15.6 H Plt Count 275 Seg Neutrophils % 45.0 Lymphocytes % 40.3 Monocytes % 9.2 Eosinophils % 4.3 Basophils % 1.2 Absolute Neutrophils 2.6 Absolute Lymphocytes 2.4 Absolute Monocytes 0.5 Absolute Eosinophils 0.3 Absolute Basophils 0.1 Sodium 149.9 H Potassium 3.6 Chloride 113 H Carbon Dioxide 26 Anion Gap 11 BUN 10 Creatinine 0.59 Est GFR ( Amer) > 60 Est GFR (Non-Af Amer) > 60 Glucose 106 Lactic Acid 1.2 Calcium 9.1 Magnesium 2.2 Impressions: Chest X-Ray 03/23/18 12:22 IMPRESSION: NO ACUTE RADIOGRAPHIC FINDING IN THE CHEST. Assessment & Plan - Diagnosis (1) Fever Qualifiers: Encounter type: initial encounter Is this a current diagnosis for this admission?: Yes Plan: Senna gram-negative organisms continues IV antibiotics wait for culture and sensitivity (2) Urinary tract infection Qualifiers: Urinary tract infection type: site unspecified Hematuria presence: without hematuria Qualified Code(s): N39.0 - Urinary tract infection, site not specified Is this a current diagnosis for this admission?: Yes Plan: Start the patient on IV Rocephin wait for the culture and sensitivity (3) Alzheimer's dementia Qualifiers: Dementia behavioral disturbance: with behavioral disturbance Is this a current diagnosis for this admission?: Yes Plan: She does currently see neurologist most likely a worsening the symptoms (4) Hypernatremia Is this a current diagnosis for this admission?: Yes Plan: Due to the dehydration's will start the patient on IV fluid (5) Seizure disorder Is this a current diagnosis for this admission?: Yes Plan: Since recently have increased the seizures medications due to the breakthrough seizures and according to the sons that patient is more nonverbal discussed with the son about to discuss the neurologist to reduce the chance of different medication as outpatient - Time Time Spent with patient: 15-24 minutes Medications reviewed and adjusted accordingly: Yes Anticipated discharge: Home Within: Other - Inpatient Certification Medical Necessity: Need Close Monitoring Due to Risk of Patient Decompensation, Need For IV Fluids, Need for IV Antibiotics Post Hospital Care: D/C Candy Polisher Documentation - Plan Summary Plan Summary: Very extensive discussions with the son regarding the patient's current conditions with this more drowsy effect most likely coming from the underlying urinary tract infections with the possible medication side effect with increasing the dose of the seizures medications Son is going to check with the neurologist about reducing the dose Will get the MRI of the head just to further any evaluations while the patient was CT of the head was done last week in the ER was all normal She is currently a DNR/DNI as per discussed with the son today
[2018-03-25] MEDS: AMLODIPINE BESYLATE 2.5 MG TABLET PO SCH ×3 (00:47→22:16)
[2018-03-25] MEDS: HEPARIN SOD (PORCINE) 5,000 UNIT/ML 1 ML SYRINGE SUBCUT SCH ×4 (00:50→22:16)
[2018-03-25] MEDS: LAMOTRIGINE 100 MG TABLET PO SCH ×2 (06:54→17:59)
[2018-03-25 07:00] LABS: ABSOLUTE EOSINOPHILS # (AUTO) 0.2 10^3/uL (0.0-0.6); ABSOLUTE LYMPHOCYTES (AUTO) 1.6 10^3/uL (0.5-4.7); ABSOLUTE MONOCYTES (AUTO) 0.4 10^3/uL (0.1-1.4); ABSOLUTE NEUT (AUTO) 2.7 10^3/uL (1.7-8.2); BASOPHILS % (AUTO) 0.4 % (0-2); EOSINOPHILS % (AUTO) 3.5 % (0-6); HEMOGLOBIN 12.7 g/dL (12.0-15.5); LYMPHOCYTES % (AUTO) 32.9 % (13-45); MEAN CORPUSCULAR HEMOGLOBIN 27.4 pg (27.0-33.4); MEAN CORPUSCULAR HGB CONC 32.6 g/dL (32.0-36.0); MEAN CORPUSCULAR VOLUME 84 fl (80-97); MONOCYTES % (AUTO) 8.1 % (3-13); PLATELET COUNT 278 10^3/uL (150-450); RED BLOOD COUNT 4.65 10^6/uL (3.72-5.28); RED CELL DISTRIBUTION WIDTH 14.8 % (11.5-14.0); SEGMENTED NEUTROPHILS % (AUTO) 55.1 % (42-78); TOTAL CELLS COUNTED % (AUTO) 100 %; WHITE BLOOD COUNT 4.9 10^3/uL (4.0-10.5)
[2018-03-25 07:16] LABS: ANION GAP 13 (5-19); BLOOD UREA NITROGEN 6 mg/dL (7-20); CALCIUM 9.4 mg/dL (8.4-10.2); CARBON DIOXIDE 26 mmol/L (22-30); CHLORIDE 106 mmol/L (98-107); GLUCOSE 98 mg/dL (75-110); POTASSIUM 3.6 mmol/L (3.6-5.0); SODIUM 145.2 mmol/L (137-145)
[2018-03-25] MEDS: DOCUSATE SODIUM 100 MG CAPSULE PO SCH ×2 (09:26→18:00)
[2018-03-25] MEDS: ATORVASTATIN CALCIUM 40 MG TABLET PO SCH (09:27)
[2018-03-25] MEDS: MEMANTINE HCL 10 MG TABLET PO SCH (09:27)
[2018-03-25] MEDS: DONEPEZIL HCL 5 MG TABLET PO SCH (09:30)
[2018-03-25] MEDS: LORATADINE 10 MG TABLET PO SCH (09:31)
[2018-03-25] MEDS: POTASSIUM CHLORIDE 20 MEQ/15 ML UDCUP PO SCH (09:31)
--- NOTE | 2018-03-25 11:18 | RADIOLOGY REPORT (SQ) ---
EXAM DESCRIPTION: MRI HEAD WITHOUT COMPLETED DATE/TIME: 03/24/2018 10:07 pm REASON FOR STUDY: ams/ COMPARISON: CT scan. TECHNIQUE: Multiplanar imaging includes non-contrasted T1, T2, FLAIR, and diffusion with ADC map seq uences. Images stored on PACS. LIMITATIONS: None. FINDINGS: ANATOMY: No anomalies. Normal vascular flow voids. Pituitary fossa normal. CSF SPACES: Atrophy induced prominence of ventricles and CSF spaces. CEREBRUM: High signal intensity lesions scattered throughout the white matter on FLAIR imaging with d istribution suggesting micro-vascular ischemic changes. No evidence of hemorrhage, mass, or extraaxi al fluid collection. POSTERIOR FOSSA: No masses or hemorrhage. Mild alteration of signal on FLAIR imaging in the case mat ter. DIFFUSION IMAGING: Negative for acute or sub-acute infarction. ORBITS: No masses. Globes normal. PARANASAL SINUSES: No fluid levels. Mucosa normal. OTHER: No other significant finding. IMPRESSION: ATROPHY AND CHRONIC MICRO-VASCULAR ISCHEMIC CHANGES. OTHERWISE NORMAL MRI OF THE BRAIN W ITHOUT INTRAVENOUS GADOLINIUM CONTRAST. EVIDENCE OF ACUTE STROKE: NO. TECHNICAL DOCUMENTATION: JOB ID: [id number] [employer]- All Rights Reserved Reading location - IP/workstation name: [email or web address]
[2018-03-25] MEDS: CEFTRIAXONE SODIUM 1,000 MG in DEXTROSE 5%-WATER 50 ML IV SCH (12:51)
--- NOTE | 2018-03-25 13:07 | PDOC PROGRESS REPORT ---
Subjective Progress Note for:: 03/25/18 Subjective:: No reported fever or chills. Remain on IV Rocephin for UTI management. Tolerating oral feeding with assistance. No expressed chest pain or difficulty with breathing. No reported seizure activity. Reason For Visit: UTI/SEPSIS Physical Exam Vital Signs: Temp Pulse Resp BP Pulse Ox 98.7 F 79 18 145/84 H 98 03/25/18 12:15 03/25/18 12:15 03/25/18 12:15 03/25/18 12:15 03/25/18 12:15 Intake & Output 03/24/18 03/25/18 03/26/18 06:59 06:59 06:59 Intake Total 840 480 Output Total 250 1175 Balance 590 -695 Weight 84.9 kg 84.8 kg General appearance: PRESENT: no acute distress, well-developed, well-nourished Head exam: PRESENT: atraumatic, normocephalic Eye exam: PRESENT: conjunctiva pink, EOMI, PERRLA. ABSENT: scleral icterus Mouth exam: PRESENT: moist Teeth exam: PRESENT: poor dentation Respiratory exam: PRESENT: clear to auscultation jesus Cardiovascular exam: PRESENT: RRR, +S1, +S2. ABSENT: diastolic murmur, rubs, systolic murmur Vascular exam: PRESENT: normal capillary refill. ABSENT: pallor GI/Abdominal exam: PRESENT: normal bowel sounds, soft. ABSENT: distended, guarding, mass, organolmegaly, rebound, tenderness Rectal exam: PRESENT: deferred Extremities exam: ABSENT: pedal edema Musculoskeletal exam: PRESENT: deformity - related to multiple joints involvement with arthritis Neurological exam: PRESENT: alert, awake Psychiatric exam: PRESENT: appropriate affect, normal mood. ABSENT: homicidal ideation, suicidal ideation Skin exam: PRESENT: dry, warm Results Laboratory Results: 03/25/18 06:34 03/25/18 06:34 03/25/18 03/25/18 06:34 06:34 WBC 4.9 RBC 4.65 Hgb 12.7 Hct 39.0 MCV 84 MCH 27.4 MCHC 32.6 RDW 14.8 H Plt Count 278 Seg Neutrophils % 55.1 Lymphocytes % 32.9 Monocytes % 8.1 Eosinophils % 3.5 Basophils % 0.4 Absolute Neutrophils 2.7 Absolute Lymphocytes 1.6 Absolute Monocytes 0.4 Absolute Eosinophils 0.2 Absolute Basophils 0.0 Sodium 145.2 H Potassium 3.6 Chloride 106 Carbon Dioxide 26 Anion Gap 13 BUN 6 L Creatinine 0.61 Est GFR ( Amer) > 60 Est GFR (Non-Af Amer) > 60 Glucose 98 Calcium 9.4 Magnesium 2.0 Impressions: Chest X-Ray 03/23/18 12:22 IMPRESSION: NO ACUTE RADIOGRAPHIC FINDING IN THE CHEST. Head MRI 03/24/18 00:00 IMPRESSION: ATROPHY AND CHRONIC MICRO-VASCULAR ISCHEMIC CHANGES. OTHERWISE NORMAL MRI OF THE BRAIN WITHOUT INTRAVENOUS GADOLINIUM CONTRAST. EVIDENCE OF ACUTE STROKE: NO. Assessment & Plan - Diagnosis (1) Urinary tract infection due to Proteus Is this a current diagnosis for this admission?: Yes Plan: Continue IV Rocephin coverage. (2) Alzheimer's dementia Qualifiers: Dementia behavioral disturbance: with behavioral disturbance Is this a current diagnosis for this admission?: Yes Plan: Continue current medication management (3) Seizure disorder Is this a current diagnosis for this admission?: Yes Plan: Continue current medication management. (4) Hyperlipidemia Qualifiers: Hyperlipidemia type: unspecified Qualified Code(s): E78.5 - Hyperlipidemia , unspecified Is this a current diagnosis for this admission?: Yes Plan: Continue current medication management. - Time Time Spent with patient: 25-34 minutes Medications reviewed and adjusted accordingly: Yes Anticipated discharge: SNF Within: Other - Inpatient Certification Based on my medical assessment, after consideration of the patient's comorbidities, presenting symptoms, or acuity I expect that the services needed warrant INPATIENT care.: Yes I certify that my determination is in accordance with my understanding of Medicare's requirements for reasonable and necessary INPATIENT services [42 CFR 412.3e].: Yes Medical Necessity: Need Close Monitoring Due to Risk of Patient Decompensation, Need For IV Fluids, Need For Continuous Telemetry Monitoring, Need for IV Antibiotics, Risk of Complication if Not Cared For in Hospital Post Hospital Care: D/C or Transfer Summary - for short term rehabilitation - Plan Summary Plan Summary: Continue current medication management
[2018-03-26] MEDS: LAMOTRIGINE 100 MG TABLET PO SCH ×2 (05:41→17:43)
[2018-03-26] MEDS: HEPARIN SOD (PORCINE) 5,000 UNIT/ML 1 ML SYRINGE SUBCUT SCH ×3 (05:41→20:54)
[2018-03-26 05:42] LABS: ABSOLUTE EOSINOPHILS # (AUTO) 0.3 10^3/uL (0.0-0.6); ABSOLUTE MONOCYTES (AUTO) 0.5 10^3/uL (0.1-1.4); ABSOLUTE NEUT (AUTO) 3.3 10^3/uL (1.7-8.2); BASOPHILS % (AUTO) 0.7 % (0-2); EOSINOPHILS % (AUTO) 4.7 % (0-6); HEMATOCRIT 40.2 % (36.0-47.0); LYMPHOCYTES % (AUTO) 32.4 % (13-45); MEAN CORPUSCULAR HEMOGLOBIN 27.3 pg (27.0-33.4); MEAN CORPUSCULAR HGB CONC 32.4 g/dL (32.0-36.0); MEAN CORPUSCULAR VOLUME 85 fl (80-97); MONOCYTES % (AUTO) 7.7 % (3-13); PLATELET COUNT 305 10^3/uL (150-450); RED BLOOD COUNT 4.76 10^6/uL (3.72-5.28); SEGMENTED NEUTROPHILS % (AUTO) 54.5 % (42-78); TOTAL CELLS COUNTED % (AUTO) 100 %; WHITE BLOOD COUNT 6.1 10^3/uL (4.0-10.5)
[2018-03-26 06:12] LABS: ANION GAP 16 (5-19); BLOOD UREA NITROGEN 8 mg/dL (7-20); CALCIUM 9.6 mg/dL (8.4-10.2); CARBON DIOXIDE 26 mmol/L (22-30); CHLORIDE 105 mmol/L (98-107); GLUCOSE 95 mg/dL (75-110); POTASSIUM 3.9 mmol/L (3.6-5.0); SODIUM 146.6 mmol/L (137-145)
[2018-03-26] MEDS: DOCUSATE SODIUM 100 MG CAPSULE PO SCH ×2 (09:42→17:43)
[2018-03-26] MEDS: MEMANTINE HCL 10 MG TABLET PO SCH (09:42)
[2018-03-26] MEDS: ATORVASTATIN CALCIUM 40 MG TABLET PO SCH (09:42)
[2018-03-26] MEDS: AMLODIPINE BESYLATE 2.5 MG TABLET PO SCH ×2 (09:43→20:54)
[2018-03-26] MEDS: DONEPEZIL HCL 5 MG TABLET PO SCH (09:43)
[2018-03-26] MEDS: POTASSIUM CHLORIDE 20 MEQ/15 ML UDCUP PO SCH (09:44)
[2018-03-26] MEDS: LORATADINE 10 MG TABLET PO SCH (09:45)
[2018-03-26] MEDS: CEFTRIAXONE SODIUM 1,000 MG in DEXTROSE 5%-WATER 50 ML IV SCH (12:07)
--- NOTE | 2018-03-26 16:21 | PDOC PROGRESS REPORT ---
Subjective Progress Note for:: 03/26/18 Subjective:: Reported intermittent unproductive cough and low grade fever by son at bedside. Tolerating assisted oral feeding. No vomiting or diarrhea.n Remain on IV Rocephin coverage. Reason For Visit: UTI/SEPSIS Physical Exam Vital Signs: Temp Pulse Resp BP Pulse Ox 98.1 F 87 18 149/93 H 95 03/26/18 12:13 03/26/18 12:13 03/26/18 12:13 03/26/18 12:13 03/26/18 12:13 Intake & Output 03/25/18 03/26/18 03/27/18 06:59 06:59 06:59 Intake Total 480 800 Output Total 1175 1450 Balance -695 -650 Weight 84.8 kg 86.5 kg Physical Exam: General appearance: PRESENT: no acute distress, well-developed, well-nourished Head exam: PRESENT: atraumatic, normocephalic Eye exam: PRESENT: conjunctiva pink, EOMI, PERRLA. ABSENT: scleral icterus Mouth exam: PRESENT: moist Teeth exam: PRESENT: poor dentation Respiratory exam: PRESENT: clear to auscultation jesus Cardiovascular exam: PRESENT: RRR, +S1, +S2. ABSENT: diastolic murmur, rubs, systolic murmur Vascular exam: PRESENT: normal capillary refill. ABSENT: pallor GI/Abdominal exam: PRESENT: normal bowel sounds, soft. ABSENT: distended, guarding, mass, organomegaly, rebound, tenderness Rectal exam: PRESENT: deferred Extremities exam: ABSENT: pedal edema Musculoskeletal exam: PRESENT: deformity - related to multiple joints involvement with arthritis Neurological exam: PRESENT: alert, awake Psychiatric exam: PRESENT: appropriate affect, normal mood. ABSENT: homicidal ideation, suicidal ideation Skin exam: PRESENT: dry, warm Results Laboratory Results: 03/26/18 04:10 03/26/18 04:10 03/26/18 03/26/18 04:10 04:10 WBC 6.1 RBC 4.76 Hgb 13.0 Hct 40.2 MCV 85 MCH 27.3 MCHC 32.4 RDW 15.0 H Plt Count 305 Seg Neutrophils % 54.5 Lymphocytes % 32.4 Monocytes % 7.7 Eosinophils % 4.7 Basophils % 0.7 Absolute Neutrophils 3.3 Absolute Lymphocytes 2.0 Absolute Monocytes 0.5 Absolute Eosinophils 0.3 Absolute Basophils 0.0 Sodium 146.6 H Potassium 3.9 Chloride 105 Carbon Dioxide 26 Anion Gap 16 BUN 8 Creatinine 0.65 Est GFR ( Amer) > 60 Est GFR (Non-Af Amer) > 60 Glucose 95 Calcium 9.6 Magnesium 2.2 Impressions: Chest X-Ray 03/23/18 12:22 IMPRESSION: NO ACUTE RADIOGRAPHIC FINDING IN THE CHEST. Head MRI 03/24/18 00:00 IMPRESSION: ATROPHY AND CHRONIC MICRO-VASCULAR ISCHEMIC CHANGES. OTHERWISE NORMAL MRI OF THE BRAIN WITHOUT INTRAVENOUS GADOLINIUM CONTRAST. EVIDENCE OF ACUTE STROKE: NO. Assessment & Plan - Diagnosis (1) Urinary tract infection due to Proteus Is this a current diagnosis for this admission?: Yes (2) Alzheimer's dementia Qualifiers: Dementia behavioral disturbance: with behavioral disturbance Is this a current diagnosis for this admission?: Yes (3) Seizure disorder Is this a current diagnosis for this admission?: Yes (4) Hyperlipidemia Qualifiers: Hyperlipidemia type: unspecified Qualified Code(s): E78.5 - Hyperlipidemia , unspecified Is this a current diagnosis for this admission?: Yes - Time Time Spent with patient: 25-34 minutes Medications reviewed and adjusted accordingly: Yes Anticipated discharge: Home with Homehealth Within: Other - Inpatient Certification Based on my medical assessment, after consideration of the patient's comorbidities, presenting symptoms, or acuity I expect that the services needed warrant INPATIENT care.: Yes I certify that my determination is in accordance with my understanding of Medicare's requirements for reasonable and necessary INPATIENT services [42 CFR 412.3e].: Yes Medical Necessity: Need Close Monitoring Due to Risk of Patient Decompensation, Need For IV Fluids, Need For Continuous Telemetry Monitoring, Need for IV Antibiotics, Risk of Complication if Not Cared For in Hospital Post Hospital Care: D/C Area Director Of Home Health Sales Documentation - Plan Summary Plan Summary: See covering attending physician orders.
--- NOTE | 2018-03-26 17:27 | RADIOLOGY REPORT (SQ) ---
EXAM DESCRIPTION: CHEST SINGLE VIEW COMPLETED DATE/TIME: 03/26/2018 5:08 pm REASON FOR STUDY: r/o Pneumonia COMPARISON: 03/23/2018. EXAM PARAMETERS: NUMBER OF VIEWS: One view. TECHNIQUE: Single frontal radiographic view of the chest acquired. RADIATION DOSE: NA LIMITATIONS: None. FINDINGS: LUNGS AND PLEURA: No opacities, masses or pneumothorax. No pleural effusion. MEDIASTINUM AND HILAR STRUCTURES: No masses. Contour normal. HEART AND VASCULAR STRUCTURES: Heart normal in size. Normal vasculature. BONES: No acute findings. HARDWARE: None in the chest. OTHER: No other significant finding. IMPRESSION: NO ACUTE RADIOGRAPHIC FINDING IN THE CHEST. TECHNICAL DOCUMENTATION: JOB ID: [id number] [employer]- All Rights Reserved Reading location - IP/workstation name: [email or web address]
[2018-03-27] MEDS: LAMOTRIGINE 100 MG TABLET PO SCH ×2 (05:57→18:20)
[2018-03-27] MEDS: HEPARIN SOD (PORCINE) 5,000 UNIT/ML 1 ML SYRINGE SUBCUT SCH ×3 (05:57→21:04)
[2018-03-27] MEDS: DONEPEZIL HCL 5 MG TABLET PO SCH (11:18)
[2018-03-27] MEDS: ATORVASTATIN CALCIUM 40 MG TABLET PO SCH (11:18)
[2018-03-27] MEDS: MEMANTINE HCL 10 MG TABLET PO SCH (11:18)
[2018-03-27] MEDS: AMLODIPINE BESYLATE 2.5 MG TABLET PO SCH ×2 (11:19→21:03)
[2018-03-27] MEDS: DOCUSATE SODIUM 100 MG CAPSULE PO SCH ×2 (11:19→18:04)
[2018-03-27] MEDS: LORATADINE 10 MG TABLET PO SCH (11:19)
[2018-03-27] MEDS: POTASSIUM CHLORIDE 20 MEQ/15 ML UDCUP PO SCH (11:19)
[2018-03-27] MEDS: CEFTRIAXONE SODIUM 1,000 MG in DEXTROSE 5%-WATER 50 ML IV SCH (12:36)
--- NOTE | 2018-03-27 13:15 | PDOC PROGRESS REPORT ---
Subjective Progress Note for:: 03/27/18 Subjective:: Patient is currently doing fair Also negative for any acute finding No other events happens No seizures activity Reason For Visit: HYPEROSMOLALITY WITH HYPERNATREMIA UTI SEPSIS Physical Exam Vital Signs: Temp Pulse Resp BP Pulse Ox 98.5 F 79 19 150/84 H 96 03/27/18 11:55 03/27/18 11:55 03/27/18 11:55 03/27/18 11:55 03/27/18 12:22 Intake & Output 03/26/18 03/27/18 03/28/18 06:59 06:59 06:59 Intake Total 800 1280 Output Total 1450 400 Balance -650 880 Weight 86.5 kg 85.9 kg Physical Exam: Very pleasant dementia General appearance: PRESENT: no acute distress, well-developed, well-nourished Head exam: PRESENT: atraumatic, normocephalic Eye exam: PRESENT: conjunctiva pink, EOMI, PERRLA. ABSENT: scleral icterus Ear exam: PRESENT: normal external ear exam Mouth exam: PRESENT: moist, tongue midline Neck exam: PRESENT: full ROM. ABSENT: carotid bruit, JVD, lymphadenopathy, thyromegaly Respiratory exam: PRESENT: clear to auscultation jesus Cardiovascular exam: PRESENT: RRR. ABSENT: diastolic murmur, rubs, systolic murmur Pulses: PRESENT: normal dorsalis pedis pul, +2 pedal pulses bilateral Vascular exam: PRESENT: normal capillary refill GI/Abdominal exam: PRESENT: normal bowel sounds, soft. ABSENT: distended, guarding, mass, organolmegaly, rebound, tenderness Rectal exam: PRESENT: deferred Extremities exam: ABSENT: pedal edema Neurological exam: PRESENT: alert, awake. ABSENT: motor sensory deficit Psychiatric exam: PRESENT: appropriate affect, normal mood. ABSENT: homicidal ideation, suicidal ideation Skin exam: PRESENT: dry, intact, warm. ABSENT: cyanosis, rash Results Laboratory Results: 03/26/18 04:10 03/26/18 04:10 Impressions: Head MRI 03/24/18 00:00 IMPRESSION: ATROPHY AND CHRONIC MICRO-VASCULAR ISCHEMIC CHANGES. OTHERWISE NORMAL MRI OF THE BRAIN WITHOUT INTRAVENOUS GADOLINIUM CONTRAST. EVIDENCE OF ACUTE STROKE: NO. Chest X-Ray 03/26/18 00:00 IMPRESSION: NO ACUTE RADIOGRAPHIC FINDING IN THE CHEST. Assessment & Plan - Diagnosis (1) Fever Qualifiers: Encounter type: initial encounter Is this a current diagnosis for this admission?: Yes Plan: Senna gram-negative organisms continues IV antibiotics wait for culture and sensitivity (2) Urinary tract infection Qualifiers: Urinary tract infection type: site unspecified Hematuria presence: without hematuria Qualified Code(s): N39.0 - Urinary tract infection, site not specified Is this a current diagnosis for this admission?: Yes Plan: Start the patient on IV Rocephin wait for the culture and sensitivity (3) Alzheimer's dementia Qualifiers: Dementia behavioral disturbance: with behavioral disturbance Is this a current diagnosis for this admission?: Yes Plan: She does currently see neurologist most likely a worsening the symptoms (4) Hypernatremia Is this a current diagnosis for this admission?: Yes Plan: Due to the dehydration's will start the patient on IV fluid (5) Seizure disorder Is this a current diagnosis for this admission?: Yes Plan: Since recently have increased the seizures medications due to the breakthrough seizures and according to the sons that patient is more nonverbal discussed with the son about to discuss the neurologist to reduce the chance of different medication as outpatient - Time Time Spent with patient: 15-24 minutes Medications reviewed and adjusted accordingly: Yes Anticipated discharge: Home with Homehealth Within: within 24 hours - Inpatient Certification Medical Necessity: Need Close Monitoring Due to Risk of Patient Decompensation, Need for IV Antibiotics Post Hospital Care: D/C C Web Developer Documentation - Plan Summary Plan Summary: Continues to monitor the patient's
[2018-03-28 05:26] LABS: ABSOLUTE EOSINOPHILS # (AUTO) 0.3 10^3/uL (0.0-0.6); ABSOLUTE LYMPHOCYTES (AUTO) 2.1 10^3/uL (0.5-4.7); ABSOLUTE MONOCYTES (AUTO) 0.4 10^3/uL (0.1-1.4); ABSOLUTE NEUT (AUTO) 3.5 10^3/uL (1.7-8.2); BASOPHILS % (AUTO) 0.6 % (0-2); EOSINOPHILS % (AUTO) 4.1 % (0-6); HEMATOCRIT 37.3 % (36.0-47.0); HEMOGLOBIN 12.2 g/dL (12.0-15.5); LYMPHOCYTES % (AUTO) 33.1 % (13-45); MEAN CORPUSCULAR HEMOGLOBIN 27.6 pg (27.0-33.4); MEAN CORPUSCULAR HGB CONC 32.8 g/dL (32.0-36.0); MEAN CORPUSCULAR VOLUME 84 fl (80-97); MONOCYTES % (AUTO) 6.3 % (3-13); PLATELET COUNT 223 10^3/uL (150-450); RED BLOOD COUNT 4.44 10^6/uL (3.72-5.28); RED CELL DISTRIBUTION WIDTH 14.7 % (11.5-14.0); SEGMENTED NEUTROPHILS % (AUTO) 55.9 % (42-78); TOTAL CELLS COUNTED % (AUTO) 100 %; WHITE BLOOD COUNT 6.3 10^3/uL (4.0-10.5)
[2018-03-28 05:49] LABS: ANION GAP 11 (5-19); BLOOD UREA NITROGEN 8 mg/dL (7-20); CALCIUM 9.2 mg/dL (8.4-10.2); CARBON DIOXIDE 28 mmol/L (22-30); CHLORIDE 104 mmol/L (98-107); GLUCOSE 98 mg/dL (75-110); POTASSIUM 3.7 mmol/L (3.6-5.0); SODIUM 143.3 mmol/L (137-145)
[2018-03-28] MEDS: LAMOTRIGINE 100 MG TABLET PO SCH ×2 (06:04→18:10)
[2018-03-28] MEDS: HEPARIN SOD (PORCINE) 5,000 UNIT/ML 1 ML SYRINGE SUBCUT SCH ×2 (06:06→13:02)
[2018-03-28] MEDS: DOCUSATE SODIUM 100 MG CAPSULE PO SCH (09:39)
[2018-03-28] MEDS: DONEPEZIL HCL 5 MG TABLET PO SCH (09:40)
[2018-03-28] MEDS: AMLODIPINE BESYLATE 2.5 MG TABLET PO SCH (09:41)
[2018-03-28] MEDS: ATORVASTATIN CALCIUM 40 MG TABLET PO SCH (09:43)
[2018-03-28] MEDS: MEMANTINE HCL 10 MG TABLET PO SCH (09:43)
[2018-03-28] MEDS: LORATADINE 10 MG TABLET PO SCH (09:43)
[2018-03-28] MEDS: POTASSIUM CHLORIDE 20 MEQ/15 ML UDCUP PO SCH (09:43)
[2018-03-28] MEDS: CEFTRIAXONE SODIUM 1,000 MG in DEXTROSE 5%-WATER 50 ML IV SCH (13:02)
--- NOTE | 2018-03-28 17:14 | PDOC DISCHARGE SUMMARY ---
General - Admit/Disc Date/PCP Admission Date/Primary Care Provider: 03/23/18 14:41 MARGO FLETCHER MD Discharge Date: 03/28/18 - Discharge Diagnosis (1) Fever Is this a current diagnosis for this admission?: Yes Summary: Currently all resolved (2) Urinary tract infection Is this a current diagnosis for this admission?: Yes Summary: Continues to p.o. Keflex at home (3) Alzheimer's dementia Is this a current diagnosis for this admission?: Yes Summary: Currently all stable (4) Hypernatremia Is this a current diagnosis for this admission?: Yes Summary: Currently all resolved (5) Seizure disorder Is this a current diagnosis for this admission?: Yes Summary: Currently all stable - Additional Information Resuscitation Status: Do Not Resuscitate Discharge Diet: As Tolerated Discharge Activity: Activity As Tolerated Prescriptions: Cephalexin Monohydrate [Keflex 500 mg Capsule] 500 mg PO BID #14 capsule Home Medications: Amlodipine Besylate [Norvasc 2.5 mg Tablet] 2.5 mg PO Q12 03/23/18 Atorvastatin Calcium [Lipitor 40 mg Tablet] 40 mg PO DAILY 03/23/18 Donepezil HCl [Aricept] 10 mg PO DAILY 03/23/18 Lamotrigine [Lamictal] 150 mg PO Q12 03/23/18 Loratadine [Claritin 10 mg Tablet] 10 mg PO DAILY 03/23/18 Memantine HCl [Namenda] 5 mg PO DAILY 03/23/18 Potassium Chloride [Kaon-Cl 20 Meq/15 ml Udcup] 7.5 ml PO DAILY 03/23/18 Cephalexin Monohydrate [Keflex 500 mg Capsule] 500 mg PO BID #14 capsule History of Present Illness History of Present Illness: COREEN BHAKTA is a 82 year old female This is a 82-year-old female with the history of the alzemer DementiaAnd a history of the recurrent urinary tract infections history of the seizures disorder and recently increased doses of medications by our neurology and according to the son patient is kind of more nonverbal brought to the office because of the hand swelling order the x-ray of the hand which is no acute fractureAnd patients decided at that point went to the ER and had a CT of the head was done with no acute strokes today's the home health nurse noticed the patient had a fever 99.5 call the EMS given 950 mg of Tylenol patient has some low-grade temperature in the ER and patients found to be urinary tract infections per ER physicians call for the admissions When I saw the patient in the ER patients pretty much nonverbal as usual due to the significant worsening underlying dementia Other than that patients not probably getting any history from because of the dementia but according to the sonPatient is currently more declining Hospital Course Hospital Course: This is a 82-year-old females basically of present in the emergency departments with the complaint of fever and chills and patient was diagnosed with a urinary tract infections patient was treated with IV Rocephin Patient's response very well with the no fever no chills and the patient's white count is all normal Patient had MRI of the head was done was negative an ultrasound of the upper extremity which patient's son is concerned about the swelling was negative for any DVT Since otherwise dementia is getting more worse Since less and less more responsive more wondering and patients currently see a neurology as outpatient Patient also have seizures disorder and recently increased the dose of the medications which patient is going to follow with the neurology patient does not have any seizures activity in the hospital PT usually immobile pretty much on the bed Very extensive discussions with the patient's son about the patient's current conditions with the worsening the dementia for the last several years patients may be a high risk for complications with aspirations pneumonia more infections Multiple other comorbidity according to the son he wants his mother More comfortable and do not want to go more aggressive any testings Patient's otherwise he will start taking care at home and do not want to send in the nursing facilities Physical Exam Vital Signs: Temp Pulse Resp BP Pulse Ox 98.4 F 94 19 150/87 H 95 03/28/18 16:17 03/28/18 16:17 03/28/18 16:17 03/28/18 16:17 03/28/18 16:17 Intake & Output 03/27/18 03/28/18 03/29/18 06:59 06:59 06:59 Intake Total 1280 2286 266 Output Total 400 1175 300 Balance 880 1111 -34 Weight 85.9 kg 87.1 kg Physical Exam: Very pleasant dementia General appearance: PRESENT: no acute distress Eye exam: PRESENT: PERRLA Mouth exam: PRESENT: neck supple Respiratory exam: PRESENT: clear to auscultation jesus Cardiovascular exam: PRESENT: +S1, +S2 GI/Abdominal exam: PRESENT: normal bowel sounds, soft Extremities exam: ABSENT: pedal edema Neurological exam: PRESENT: alert, awake Skin exam: PRESENT: dry Results Laboratory Results: 03/28/18 04:16 03/28/18 04:16 03/28/18 03/28/18 04:16 04:16 WBC 6.3 RBC 4.44 Hgb 12.2 Hct 37.3 MCV 84 MCH 27.6 MCHC 32.8 RDW 14.7 H Plt Count 223 Seg Neutrophils % 55.9 Lymphocytes % 33.1 Monocytes % 6.3 Eosinophils % 4.1 Basophils % 0.6 Absolute Neutrophils 3.5 Absolute Lymphocytes 2.1 Absolute Monocytes 0.4 Absolute Eosinophils 0.3 Absolute Basophils 0.0 Sodium 143.3 Potassium 3.7 Chloride 104 Carbon Dioxide 28 Anion Gap 11 BUN 8 Creatinine 0.62 Est GFR ( Amer) > 60 Est GFR (Non-Af Amer) > 60 Glucose 98 Calcium 9.2 Impressions: Head MRI 03/24/18 00:00 IMPRESSION: ATROPHY AND CHRONIC MICRO-VASCULAR ISCHEMIC CHANGES. OTHERWISE NORMAL MRI OF THE BRAIN WITHOUT INTRAVENOUS GADOLINIUM CONTRAST. EVIDENCE OF ACUTE STROKE: NO. Chest X-Ray 03/26/18 00:00 IMPRESSION: NO ACUTE RADIOGRAPHIC FINDING IN THE CHEST. Qualifiers - * PATIENT BEING DISCHARGED WITH ANY OF THE FOLLOWING DIAGNOSIS: No VTE patient discharged on overlapping Therapy?: Yes Plan Time Spent: Greater than 30 Minutes - Patient is currently doing well following the 2 weeks in OFFICE Follow with the neurology
[2018-03-28 17:43] VITALS: BP 136/61
--- NOTE | 2018-03-29 11:45 | RADIOLOGY REPORT (SQ) ---
EXAM DESCRIPTION: VENOUS UNILATERAL UPPER COMPLETED DATE/TIME: 03/28/2018 4:22 pm REASON FOR STUDY: SWELLING LUE COMPARISON: None. TECHNIQUE: Dynamic and static case scale and color images acquired of the left arm venous system. Se lected spectral images acquired with additional compression and augmentation maneuvers. The contralat eral subclavian vein and internal jugular vein were also imaged. Images stored on PACS. LIMITATIONS: None. FINDINGS: INTERNAL JUGULAR VEIN: Normal phasicity, compression, augmentation. No visualized echogeni c material on case scale. No defects on color images. Comparison opposite side normal. SUBCLAVIAN VEIN: Normal compression, augmentation. No visualized echogenic material on case scale. No defects on color images. AXILLARY VEIN: Normal compression, augmentation. No visualized echogenic material on case scale. No d efects on color images. BRACHIAL VEIN: Normal compression, augmentation. No visualized echogenic material on case scale. No d efects on color images. BASILIC VEIN: Normal compression, augmentation. No visualized echogenic material on case scale. No de fects on color images. CEPHALIC VEIN: Normal compression, augmentation. No visualized echogenic material on case scale. No d efects on color images. OTHER: No other significant finding. CONTRALATERAL SUBCLAVIAN VEIN AND INTERNAL JUGULAR VEIN: Normal phasicity, compression and augmentation. No visualized echogenic material on case scale. No de fects on color images. IMPRESSION: NO EVIDENCE DVT OR SVT IN THE LEFT ARM. TECHNICAL DOCUMENTATION: JOB ID: [id number] [employer]- All Rights Reserved Reading location - IP/workstation name: [email or web address]
--- NOTE | 2018-03-29 11:46 | RADIOLOGY REPORT (SQ) ---
EXAM DESCRIPTION: VENOUS BILATERAL LOWER COMPLETED DATE/TIME: 03/28/2018 5:18 pm REASON FOR STUDY: SWELLING COMPARISON: None. TECHNIQUE: Dynamic and static case scale and color images acquired of both lower extremity venous sy stems. Selected spectral images acquired with additional compression and augmentation maneuvers. Imag es stored on PACS. LIMITATIONS: None. FINDINGS: RIGHT LEG COMMON FEMORAL AND FEMORAL: Normal phasicity, compression and augmentation. No visualized echogenic m aterial on case scale. No defects on color images. POPLITEAL: Normal compression and augmentation. No visualized echogenic material on case scale. No de fects on color images. CALF VESSELS: Normal compression and augmentation. No visualized echogenic material on case scale. No defects on color image. GSV AND SSV: Normal compression. No visualized echogenic material on case scale. No defects on color images. ANY DEEP VENOUS INSUFFICIENCY: Not evaluated. ANY EVIDENCE OF POPLITEAL CYST: No. OTHER: No other significant finding. LEFT LEG COMMON FEMORAL AND FEMORAL: Normal phasicity, compression and augmentation. No visualized echogenic m aterial on case scale. No defects on color images. POPLITEAL: Normal compression and augmentation. No visualized echogenic material on case scale. No de fects on color images. CALF VESSELS: Normal compression and augmentation. No visualized echogenic material on case scale. No defects on color images. GSV AND SSV: Normal compression. No visualized echogenic material on case scale. No defects on color images. ANY DEEP VENOUS INSUFFICIENCY: Not evaluated. ANY EVIDENCE POPLITEAL CYST: No. OTHER: No other significant finding. IMPRESSION: NO EVIDENCE DVT OR SVT IN EITHER LEG. TECHNICAL DOCUMENTATION: JOB ID: [id number] [employer]- All Rights Reserved Reading location - IP/workstation name: [email or web address]
== END 2018-03-28 18:48 | disposition home health service (06) | DRG 690 ==
LOC: ER 12:13 → EH 14:41 → 5 17:53
PROVIDERS: ADMIT Family Medicine; ATTEND Family Medicine
DX: N39.0 Urinary tract infection, site not specified (principal); E87.0 Hyperosmolality and hypernatremia; F02.81 Dementia in other diseases classified elsewhere, unspecified severity, with behavioral disturbance; E86.0 Dehydration; G30.9 Alzheimer's disease, unspecified; G40.909 Epilepsy, unspecified, not intractable, without status epilepticus; I10 Essential (primary) hypertension; M19.90 Unspecified osteoarthritis, unspecified site; F32.9 Major depressive disorder, single episode, unspecified; B96.4 Proteus (mirabilis) (morganii) as the cause of diseases classified elsewhere; E78.5 Hyperlipidemia, unspecified; Z91.83 Wandering in diseases classified elsewhere
CPT/HCPCS: 36415; 70551; 71045; 80048; 80053; 81001; 82803; 82962; 83605; 83735; 85025; 85610; 87040; 87086; 87088; 87186; 93005; 93010; 93970; 93971; 96365; 99285; G8978-GP; G8979-GP; G8980-GP; J0696; J1644; J3490; J7030

== ENCOUNTER 2018-06-06 11:14 | Emergency (ER) | payer MEDICARE, MEDICAID ==
[2018-06-06 12:19] LABS: APPEARANCE,URINE SLIGHTLY-CLOUDY; BILIRUBIN,URINE NEGATIVE (NEGATIVE); COLOR,URINE YELLOW; GLUCOSE, URINE NEGATIVE (NEGATIVE); KETONES,URINE NEGATIVE (NEGATIVE); LEUKOCYTE ESTERASE,URINE TRACE (NEGATIVE); NITRITE,URINE NEGATIVE (NEGATIVE); PROTEIN,URINE NEGATIVE (NEGATIVE); URINE SPECIFIC GRAVITY 1.016
[2018-06-06 12:23] LABS: ABSOLUTE BASOPHILS # (AUTO) 0.1 10^3/uL (0.0-0.2); ABSOLUTE EOSINOPHILS # (AUTO) 0.3 10^3/uL (0.0-0.6); ABSOLUTE LYMPHOCYTES (AUTO) 2.2 10^3/uL (0.5-4.7); ABSOLUTE MONOCYTES (AUTO) 0.5 10^3/uL (0.1-1.4); BASOPHILS % (AUTO) 0.7 % (0-2); HEMATOCRIT 38.6 % (36.0-47.0); HEMOGLOBIN 12.4 g/dL (12.0-15.5); INTERNATIONAL RATION (INR) 1.01; LYMPHOCYTES % (AUTO) 31.5 % (13-45); MEAN CORPUSCULAR HEMOGLOBIN 27.2 pg (27.0-33.4); MEAN CORPUSCULAR HGB CONC 32.2 g/dL (32.0-36.0); MEAN CORPUSCULAR VOLUME 85 fl (80-97); MONOCYTES % (AUTO) 7.3 % (3-13); PLATELET COUNT 346 10^3/uL (150-450); PROTHROMBIN TIME 13.8 SEC (11.4-15.4); RED BLOOD COUNT 4.56 10^6/uL (3.72-5.28); RED CELL DISTRIBUTION WIDTH 14.8 % (11.5-14.0); SEGMENTED NEUTROPHILS % (AUTO) 56.5 % (42-78); TOTAL CELLS COUNTED % (AUTO) 100 %; WHITE BLOOD COUNT 7.1 10^3/uL (4.0-10.5)
--- NOTE | 2018-06-06 12:25 | EKG REPORT ---
SEVERITY:- ABNORMAL ECG - SINUS RHYTHM LEFT VENTRICULAR HYPERTROPHY : Confirmed by: Gill Mcgovern 06-Jun-2018 12:24:57
[2018-06-06 12:28] LABS: ALANINE AMINOTRANSFERASE 47 U/L (9-52); ALBUMIN 3.7 g/dL (3.5-5.0); ALKALINE PHOSPHATASE 149 U/L (38-126); ANION GAP 7 (5-19); ASPARTATE AMINO TRANSFERASE 41 U/L (14-36); BILIRUBIN,DIRECT 0.4 mg/dL (0.0-0.4); BILIRUBIN,TOTAL 0.6 mg/dL (0.2-1.3); BLOOD UREA NITROGEN 9 mg/dL (7-20); CALCIUM 9.4 mg/dL (8.4-10.2); CARBON DIOXIDE 31 mmol/L (22-30); CHLORIDE 105 mmol/L (98-107); GLUCOSE 115 mg/dL (75-110); POTASSIUM 3.8 mmol/L (3.6-5.0); SODIUM 142.6 mmol/L (137-145)
--- NOTE | 2018-06-06 12:40 | ER Document Report ---
ED General - General Mode of Arrival: Medic Information source: Relative TRAVEL OUTSIDE OF THE [place] IN LAST 30 DAYS: No <GONZALO DEE - Last Filed: 06/06/18 17:05> <CHLOE SMITH - Last Filed: 06/06/18 17:05> - General Chief Complaint: Tremor Stated Complaint: URINARY PROBLEM Time Seen by Provider: 06/06/18 12:07 Notes: 82-year-old female with Alzheimer's disease brought to the emergency department by the son for concerns of a UTI and also for "tremors or seizures". Steamship Agent at bedside describes these as whole body fine tremors, stating they last less than a minute. Patient is on Lamictal for seizures and the last time her levels were drawn is unknown. Patient denies any missed medications. Son states he has not noticed increased confusion. (GONZALO DEE) - Related Data Allergies/Adverse Reactions: No Known Allergies Allergy (Verified 06/06/18 11:37) Past Medical History - General Information source: Relative - Social History Smoking Status: Never Smoker Cigarette use (# per day): No Chew tobacco use (# tins/day): No Frequency of alcohol use: None Drug Abuse: None Lives with: Family Family History: Reviewed & Not Pertinent Patient has suicidal ideation: No Patient has homicidal ideation: No - Past Medical History Cardiac Medical History: Reports: Hx Hypercholesterolemia, Hx Hypertension Neurological Medical History: Reports: Hx Seizures Musculoskeletal Medical History: Reports Hx Arthritis Psychiatric Medical History: Reports: Hx Dementia, Hx Depression Surgical Hx: Negative <GONZALO DEE - Last Filed: 06/06/18 17:05> Review of Systems - Review of Systems -: Yes ROS unobtainable due to patient's medical condition <GONZALO DEE - Last Filed: 06/06/18 17:05> Physical Exam <GONZALO DEE - Last Filed: 06/06/18 17:05> <CHLOE SMITH - Last Filed: 06/06/18 17:05> - Vital signs Vitals: Resp 13 06/06/18 11:25 - Notes Notes: PHYSICAL EXAM GENERAL: Awake, smiles, no acute distress. HEAD: Normocephalic, atraumatic. EYES: Pupils equal, round, and reactive to light. Extraocular movements intact. ENT: Oral mucosa moist, tongue midline. NECK: Full range of motion. Supple. Trachea midline. LUNGS: Clear to auscultation bilaterally, no wheezes, rales, or rhonchi. No respiratory distress. HEART: Regular rate and rhythm. No murmurs, gallops, or rubs. ABDOMEN: Soft, non-tender. Non-distended. Bowel sounds present in all 4 quadrants. No guarding, rigidity, or rebound. EXTREMITIES: No edema, radial and dorsalis pedis pulses 2/4 bilaterally. NEUROLOGICAL: Squeezes hands on command, non-verbal which son states is baseline for her secondary to Alzheimer's. PSYCH: Makes eye contact, smiles. SKIN: Warm, dry, normal turgor. No rashes or lesions noted. (GONZALO DEE) Course - Laboratory Result Diagrams: 06/06/18 11:51 06/06/18 11:51 <GONZALO DEE - Last Filed: 06/06/18 17:05> - Laboratory Result Diagrams: 06/06/18 11:51 06/06/18 11:51 <CHLOE SMITH - Last Filed: 06/06/18 17:05> - Re-evaluation Re-evalutation: 06/06/18 14:57 CBC unremarkable, coags normal, venous blood gas unremarkable, CMP grossly unremarkable only slight elevation in the CO2, slightly elevated alkaline phosphatase at 149. Urinalysis which was catheterized has trace leukocyte esterase and trace bacteria. It is surprising that on the cath specimen there were 14 squames epithelial cells. This will be sent for culture, will initially be treated with Keflex. No evidence of pyelonephritis, no evidence of urosepsis. Chest x-ray unremarkable, Lamictal levels was obtained but it is a send out. Patient will be discharged home. (CHLOE SMITH) - Vital Signs Vital signs: Temp Pulse Resp BP Pulse Ox 99.7 F 14 154/91 H 95 06/06/18 13:12 06/06/18 15:17 06/06/18 13:01 06/06/18 15:17 - Laboratory Laboratory results interpreted by me: 06/06/18 06/06/18 06/06/18 11:30 11:51 11:51 RDW 14.8 H Carbon Dioxide 31 H Glucose 115 H AST 41 H Alkaline Phosphatase 149 H Urine Urobilinogen 4.0 H Ur Leukocyte Esterase TRACE H Urine Ascorbic Acid 20 H - EKG Interpretation by Me Additional EKG results interpreted by me: 06/06/18 14:59 EKG shows sinus rhythm at a rate of 83, first-degree AV block with ID interval of 204, left axis deviation, no ST segment elevations or depressions, slight T wave inversions noted in aVL. (CHLOE SMITH) Discharge <GONZALO DEE - Last Filed: 06/06/18 17:05> <CHLOE SMITH - Last Filed: 06/06/18 17:05> - Discharge Clinical Impression: Recurrent urinary tract infection Alzheimer's dementia Qualifiers: Alzheimer's disease onset: late-onset Dementia behavioral disturbance: without behavioral disturbance Qualified Code(s): G30.1 - Alzheimer's disease with late onset Condition: Stable Disposition: HOME, SELF-CARE Additional Instructions: Please follow-up with Dr. Brink within the next 2 weeks to check on with the results of her Lamictal level or. I have prescribed Keflex, we have sent her urine for culture, if we need to change the antibiotic we will call you in the next several days. Please take the Keflex as directed until it is gone. Please return to the emergency department should she develop any alteration in her behavior, become more confused, have worsening seizures compared to usual or develop any new or concerning symptoms. Prescriptions: Cephalexin Monohydrate [Keflex 500 mg Capsule] 500 mg PO Q6H #28 capsule Referrals: MARGO FLETCHER MD [Primary Care Provider] - Follow up in 3-5 days JOHN BRINK MD [NO LOCAL MD] - Follow up as needed (1-2 weeks ) Scribe Attestation: 06/06/18 17:05 I personally performed the services described in the documentation, reviewed and edited the documentation which was dictated to the scribe in my presence, and it accurately records my words and actions. (CHLOE SMITH) Scribe Documentation - Scribe Written by Scribe:: Dinorah Cruz, 06/06/2018 1528 acting as scribe for :: Rekha <GONZALO DEE - Last Filed: 06/06/18 17:05>
--- NOTE | 2018-06-06 12:43 | RADIOLOGY REPORT (SQ) ---
EXAM DESCRIPTION: CHEST SINGLE VIEW COMPLETED DATE/TIME: 06/06/2018 12:19 pm REASON FOR STUDY: rigors COMPARISON: Chest films 03/26/2018, 03/23/2018, 01/23/2018 EXAM PARAMETERS: NUMBER OF VIEWS: One view. TECHNIQUE: Single frontal radiographic view of the chest acquired. RADIATION DOSE: NA LIMITATIONS: None. FINDINGS: LUNGS AND PLEURA: No opacities, masses or pneumothorax. No pleural effusion. MEDIASTINUM AND HILAR STRUCTURES: No masses. Contour normal. HEART AND VASCULAR STRUCTURES: Stable moderate cardiomegaly BONES: No acute findings. HARDWARE: None in the chest. OTHER: No other significant finding. IMPRESSION: No acute infiltrates. Stable moderate cardiomegaly TECHNICAL DOCUMENTATION: JOB ID: [id number] [employer]- All Rights Reserved Reading location - IP/workstation name: [email or web address]
[2018-06-06 12:51] LABS: VENOUS BLOOD BASE EXCESS 2.9 mmol/L; VENOUS BLOOD HCO3 28.1 mmol/L (20-32); VENOUS BLOOD PCO2 45.3 mmHg (35-63); VENOUS BLOOD PH 7.41 (7.30-7.42)
[2018-06-06] MEDS ORDERED: CEPHALEXIN 500 MG CAPSULE PO ONE (14:10)
[2018-06-06 15:02] VITALS: BP 154/91
== END 2018-06-06 16:32 | disposition home or self-care (01) ==
LOC: ER 11:14
DX: N39.0 Urinary tract infection, site not specified (principal); G30.1 Alzheimer's disease with late onset; R25.1 Tremor, unspecified; Z87.440 Personal history of urinary (tract) infections; E78.00 Pure hypercholesterolemia, unspecified; I10 Essential (primary) hypertension
CPT/HCPCS: 93005; 99284; 36415; 87040; 87086; 85025; 85610; 87088; 80053; 80175; 81001; 87186; 82803; 83605; 71045; 93010; A9270

== ENCOUNTER → 2018-12-04 | Outpatient (CLI) | payer MEDICARE, MEDICAID ==
--- NOTE | 2018-12-04 15:50 | RADIOLOGY REPORT (SQ) ---
EXAM DESCRIPTION: CHEST 2 VIEWS COMPLETED DATE/TIME: 12/04/2018 3:25 pm REASON FOR STUDY: R05 COUGH COMPARISON: 03/26/2018 EXAM PARAMETERS: NUMBER OF VIEWS: two views TECHNIQUE: Digital Frontal and Lateral radiographic views of the chest acquired. RADIATION DOSE: NA LIMITATIONS: none FINDINGS: LUNGS AND PLEURA: No opacities, masses or pneumothorax. No pleural effusion. MEDIASTINUM AND HILAR STRUCTURES: Chronic elevation of the left hemidiaphragm. HEART AND VASCULAR STRUCTURES: Heart normal size. No evidence for failure. BONES: No acute findings. HARDWARE: None in the chest. OTHER: No other significant finding. IMPRESSION: NO ACUTE RADIOGRAPHIC FINDING IN THE CHEST. TECHNICAL DOCUMENTATION: JOB ID: [id number] [employer]- All Rights Reserved Reading location - IP/workstation name: [email or web address]
== END ==
LOC: RAD 15:07
PROVIDERS: ATTEND Family Medicine
DX: R05 Cough (principal)
CPT/HCPCS: 71046

== ENCOUNTER 2018-12-06 18:42 | Emergency (ER) | payer MEDICARE, MEDICAID ==
[2018-12-06 19:29] LABS: ABSOLUTE EOSINOPHILS # (AUTO) 0.2 10^3/uL (0.0-0.6); ABSOLUTE LYMPHOCYTES (AUTO) 1.8 10^3/uL (0.5-4.7); ABSOLUTE MONOCYTES (AUTO) 0.6 10^3/uL (0.1-1.4); ABSOLUTE NEUT (AUTO) 2.3 10^3/uL (1.7-8.2); BASOPHILS % (AUTO) 0.6 % (0-2); EOSINOPHILS % (AUTO) 3.9 % (0-6); HEMATOCRIT 42.3 % (36.0-47.0); HEMOGLOBIN 13.8 g/dL (12.0-15.5); LYMPHOCYTES % (AUTO) 36.4 % (13-45); MEAN CORPUSCULAR HEMOGLOBIN 27.6 pg (27.0-33.4); MEAN CORPUSCULAR HGB CONC 32.7 g/dL (32.0-36.0); MEAN CORPUSCULAR VOLUME 84 fl (80-97); MONOCYTES % (AUTO) 12.9 % (3-13); PLATELET COUNT 257 10^3/uL (150-450); RED BLOOD COUNT 5.02 10^6/uL (3.72-5.28); RED CELL DISTRIBUTION WIDTH 14.9 % (11.5-14.0); SEGMENTED NEUTROPHILS % (AUTO) 46.2 % (42-78); TOTAL CELLS COUNTED % (AUTO) 100 %; WHITE BLOOD COUNT 4.9 10^3/uL (4.0-10.5)
--- NOTE | 2018-12-06 19:38 | ER Document Report ---
ED Fever - General Chief Complaint: Fever Stated Complaint: FEVER Time Seen by Provider: 12/06/18 18:54 Primary Care Provider: MARGO FLETCHER MD [Primary Care Provider] - Follow up as needed Mode of Arrival: Stretcher Information source: Relative Cannot obtain history due to: Dementia Notes: HISTORY OF PRESENT ILLNESS: Patient is a 83-year-old female with a past medical history of chronic dementia, seizures, hypertension, and other chronic health conditions who presents with cough and fever. Patient cannot answer questions, therefore her son at bedside is the primary source of information. He reports the cough started "months ago," but the fever did not start until today. He reports seeing the patient's primary physician 2 days ago and was prescribed Keflex for "possible lung infection," but he also notes the patient is a "prone to urine infections." At her baseline the patient is nonverbal and her son reports she is "basically behaving normally." Location: Chest Onset: Cough began "months ago," fever began today Provocation: Unknown Quality: Nonproductive cough Radiation: None Severity: Mild to moderate Timing: Constant Associated symptoms: No known sick contacts REVIEW OF SYSTEMS: CONSTITUTIONAL : Positive for fever but no chills or sweats. Denies recent illness. EENT: Denies eye, ear, throat, or mouth pain or symptoms. Denies nasal or sinus congestion. CARDIOVASCULAR: Denies chest pain. RESPIRATORY: Positive for cough and chest congestion. Denies shortness of breath, difficulty breathing, or wheezing. GASTROINTESTINAL: Denies abdominal pain. Denies nausea, vomiting, or diarrhea. Denies constipation. GENITOURINARY: Denies difficulty urinating, painful urination, burning, frequency, or blood in urine. Denies vaginal bleeding, abnormal or irregular periods. MUSCULOSKELETAL: Denies neck or back pain or joint pain or swelling. SKIN: Denies rash or skin lesions. HEMATOLOGIC : Denies easy bruising or bleeding. LYMPHATIC: Denies swollen, enlarged glands. NEUROLOGICAL: Denies altered mental status or loss of consciousness. Denies headache. Denies weakness or paralysis or loss of use of either side. Denies problems with gait or speech. Denies sensory or motor loss. PSYCHIATRIC: Denies anxiety or stress or depression. All other systems reviewed and negative. PHYSICAL EXAMINATION: GENERAL: Nonverbal and weak-appearing, well-nourished and in no acute distress. HEAD: Atraumatic, normocephalic. No scalp deformity, depression, or crepitance. EYES: Pupils are 2mm and equal/round/reactive to light, extraocular movements intact, sclera anicteric, conjunctiva are normal. ENT: Nares patent bilaterally, oropharynx clear without exudates or palatal petechia. Moist mucous membranes. No tonsil hypertrophy. NECK: Normal range of motion, supple without lymphadenopathy. LUNGS: Breath sounds slightly diminished with faint rhonchi bilaterally. No wheezes or rales. HEART: Regular rate and rhythm without murmurs, rubs, or gallops. 2+ peripheral pulses. Normal capillary refill. ABDOMEN: Soft, nontender, nondistended. Normoactive bowel sounds. No guarding, no rebound. No masses appreciated. BACK: Normal contour, no midline tenderness. Rectal exam deferred. PELVC: Deferred. EXTREMITIES: Normal range of motion, 3+ pitting edema of the bilateral lower extremities that is equal and symmetric. No cyanosis. NEUROLOGICAL: No focal neurological deficits. Moves all extremities spontaneously and on command. PSYCH: Normal mood, normal affect. No suicidal thoughts/ideations. No homocidal thoughts/ideations. No hallucinations. SKIN: Warm, dry, normal turgor, no rashes or lesions noted. ASSESSMENT AND PLAN: This patient is a 83-year-old female who presents with fever and cough that could be viral syndrome versus bronchitis versus pneumonia versus UTI. 1. Will obtain labs, urine, chest x-ray, and reassess. 2. Will consider admission pending workup. TRAVEL OUTSIDE OF THE [place] IN LAST 30 DAYS: No - Related Data Allergies/Adverse Reactions: No Known Allergies Allergy (Verified 06/06/18 11:37) Past Medical History - General Information source: Relative Cannot obtain history due to: Dementia - Social History Smoking Status: Former Smoker Chew tobacco use (# tins/day): No Frequency of alcohol use: None Drug Abuse: None Lives with: Family Family History: Reviewed & Not Pertinent Patient has suicidal ideation: No Patient has homicidal ideation: No - Past Medical History Cardiac Medical History: Reports: Hx Hypercholesterolemia, Hx Hypertension Pulmonary Medical History: Reports: None EENT Medical History: Reports: None Neurological Medical History: Reports: Hx Seizures Endocrine Medical History: Reports: None Renal/ Medical History: Reports: None. Denies: Hx Peritoneal Dialysis Malignancy Medical History: Reports: None GI Medical History: Reports: None Musculoskeletal Medical History: Reports Hx Arthritis Skin Medical History: Reports None Psychiatric Medical History: Reports: Hx Dementia, Hx Depression Traumatic Medical History: Reports: None Infectious Medical History: Reports: None - Immunizations Immunizations up to date: Yes Hx Diphtheria, Pertussis, Tetanus Vaccination: Yes History of Influenza Vaccine for 06/2017 - 11/2017 Season: Yes Physical Exam - Vital signs Vitals: Temp 99.4 F 12/06/18 18:54 Course - Re-evaluation Re-evalutation: 12/06/18 23:15 Labs and urine are unremarkable, and the chest x-ray does not reveal any acute pathology. Based off of her symptoms, it is possible that the patient could have an atypical process such as atypical pneumonia. She will be given IV a ntibiotics and will be discharged home with return precautions and follow-up with her primary physician. The patient's son voices both understanding and agreeing with the plan. - Vital Signs Vital signs: Temp Pulse Resp BP Pulse Ox 99.4 F 17 137/86 H 93 12/06/18 18:54 12/06/18 19:01 12/06/18 19:00 12/06/18 19:01 - Laboratory Result Diagrams: 12/06/18 19:19 12/06/18 19:19 Laboratory results interpreted by me: 12/06/18 12/06/18 12/06/18 19:19 19:19 20:04 RDW 14.9 H Potassium 3.2 L Glucose 126 H Alkaline Phosphatase 145 H Urine Protein 30 H Urine Urobilinogen 4.0 H Urine Ascorbic Acid 20 H - Diagnostic Test Radiology reviewed: Image reviewed, Reports reviewed Discharge - Discharge Clinical Impression: Cough Condition: Good Disposition: HOME, SELF-CARE Instructions: Cough Suppressant & Expectorant Medications Additional Instructions: You have been evaluated in the Emergency Department for cough and fever. While here, you had blood work and a chest x-ray that did not reveal anything concerning and it is now safe to be discharged home. It is possible that she could have an early chest infection that did not show up on chest x-ray, therefore you are given a stronger antibiotic. Please follow-up with your primary physician as instructed in 24-48 hours to be rechecked. Return to the Emergency Department if you experience chest pain, difficulty breathing, or any other concerning symptoms. Prescriptions: Levofloxacin [Levaquin 500 mg Tablet] 500 mg PO DAILY #7 tablet Referrals: MARGO FLETCHER MD [Primary Care Provider] - Follow up as needed Print Language: Kazakh
[2018-12-06 19:48] LABS: ALANINE AMINOTRANSFERASE 33 U/L (9-52); ALBUMIN 3.8 g/dL (3.5-5.0); ALKALINE PHOSPHATASE 145 U/L (38-126); ANION GAP 8 (5-19); ASPARTATE AMINO TRANSFERASE 33 U/L (14-36); BILIRUBIN,DIRECT 0.3 mg/dL (0.0-0.4); BILIRUBIN,TOTAL 0.5 mg/dL (0.2-1.3); BLOOD UREA NITROGEN 9 mg/dL (7-20); CALCIUM 9.3 mg/dL (8.4-10.2); CARBON DIOXIDE 30 mmol/L (22-30); CHLORIDE 105 mmol/L (98-107); GLUCOSE 126 mg/dL (75-110); POTASSIUM 3.2 mmol/L (3.6-5.0); SODIUM 142.7 mmol/L (137-145); TOTAL PROTEIN 7.3 g/dL (6.3-8.2)
--- NOTE | 2018-12-06 20:05 | RADIOLOGY REPORT (SQ) ---
EXAM DESCRIPTION: Chest single view CLINICAL HISTORY: 83 years Female, Fever COMPARISON: 12/04/2018 FINDINGS: Lungs are clear, with no focal infiltrate, pneumothorax, or pleural effusion. The previously demonstrated elevation of the left hemidiaphragm has resolved. There is improved aeration of the left lung. Mediastinum is within normal limits for this positioning. Bony structures are unremarkable. IMPRESSION: 1. No acute pulmonary findings.
[2018-12-06 20:46] LABS: APPEARANCE,URINE SLIGHTLY-CLOUDY; BILIRUBIN,URINE NEGATIVE (NEGATIVE); COLOR,URINE YELLOW; GLUCOSE, URINE NEGATIVE (NEGATIVE); KETONES,URINE NEGATIVE (NEGATIVE); LEUKOCYTE ESTERASE,URINE NEGATIVE (NEGATIVE); NITRITE,URINE NEGATIVE (NEGATIVE); PROTEIN,URINE 30 mg/dL (NEGATIVE)
[2018-12-06] MEDS ORDERED: LEVOFLOXACIN 750 MG/D5W RTU 750 MG/150 ML RTUPB IV ONE (23:14)
[2018-12-07 01:07] VITALS: BP 145/78
== END 2018-12-07 09:27 | disposition home or self-care (01) ==
LOC: ER 18:42
DX: R05 Cough (principal); R50.9 Fever, unspecified; R09.89 Other specified symptoms and signs involving the circulatory and respiratory systems; I10 Essential (primary) hypertension; F03.90 Unspecified dementia, unspecified severity, without behavioral disturbance, psychotic disturbance, mood disturbance, and anxiety; Z87.891 Personal history of nicotine dependence
CPT/HCPCS: 99284; 96365; 36415; 85025; 80053; 81001; 71045; J1956

== ENCOUNTER 2019-01-09 19:37 | Emergency (ER) | payer MEDICARE, MEDICAID ==
--- NOTE | 2019-01-09 21:28 | ER Document Report ---
ED Medical Screen (RME) - General Chief Complaint: Urinary Problem Stated Complaint: FEVER Time Seen by Provider: 01/09/19 21:17 Primary Care Provider: MARGO FLETCHER MD [Primary Care Provider] - Follow up as needed Notes: 83-year-old female chief complaint of running higher temperatures at home, son states that she "runs low", he states that usually when her temperature is closer to 99 F that she is running a fever and has a urinary tract infect. She has Alzheimer's, she is nonverbal, but she does live at home with her son. He states only other change for her is she is having loose stools frequently. No vomiting, no signs of distress. No history of C. difficile reported. TRAVEL OUTSIDE OF THE [place] IN LAST 30 DAYS: No - Related Data Allergies/Adverse Reactions: No Known Allergies Allergy (Verified 06/06/18 11:37) Past Medical History - Social History Chew tobacco use (# tins/day): No Frequency of alcohol use: None - Past Medical History Cardiac Medical History: Reports: Hx Hypercholesterolemia, Hx Hypertension Neurological Medical History: Reports: Hx Seizures Renal/ Medical History: Denies: Hx Peritoneal Dialysis Musculoskeltal Medical History: Reports Hx Arthritis Psychiatric Medical History: Reports: Hx Dementia, Hx Depression - Immunizations Immunizations up to date: Yes Hx Diphtheria, Pertussis, Tetanus Vaccination: Yes History of Influenza Vaccine for 06/2017 - 11/2017 Season: Yes Physical Exam - Vital signs Vitals: Temp Pulse Resp BP Pulse Ox 98.5 F 78 12 152/86 H 98 01/09/19 20:23 01/09/19 20:23 01/09/19 20:23 01/09/19 20:23 01/09/19 20:23 - Abdominal Distension: No distension Tenderness: Nontender. No: Tender Course - Re-evaluation Re-evalutation: Patient does not appear to be in distress, she is nonverbal. Vital signs unremarkable. I have greeted and performed a rapid initial assessment of this patient. A comprehensive ED assessment and evaluation of the patient, analysis of test results and completion of the medical decision making process will be conducted by additional ED providers. - Vital Signs Vital signs: Temp Pulse Resp BP Pulse Ox 98.5 F 78 12 152/86 H 98 01/09/19 20:23 01/09/19 20:23 01/09/19 20:23 01/09/19 20:23 01/09/19 20:23 Doctor's Discharge - Discharge Referrals: MARGO FLETCHER MD [Primary Care Provider] - Follow up as needed
[2019-01-09 22:18] LABS: ABSOLUTE EOSINOPHILS # (AUTO) 0.3 10^3/uL (0.0-0.6); ABSOLUTE LYMPHOCYTES (AUTO) 2.5 10^3/uL (0.5-4.7); ABSOLUTE MONOCYTES (AUTO) 0.6 10^3/uL (0.1-1.4); ABSOLUTE NEUT (AUTO) 3.1 10^3/uL (1.7-8.2); BASOPHILS % (AUTO) 0.8 % (0-2); EOSINOPHILS % (AUTO) 4.3 % (0-6); HEMATOCRIT 47.1 % (36.0-47.0); HEMOGLOBIN 15.2 g/dL (12.0-15.5); LYMPHOCYTES % (AUTO) 38.1 % (13-45); MEAN CORPUSCULAR HEMOGLOBIN 27.7 pg (27.0-33.4); MEAN CORPUSCULAR HGB CONC 32.2 g/dL (32.0-36.0); MEAN CORPUSCULAR VOLUME 86 fl (80-97); MONOCYTES % (AUTO) 8.8 % (3-13); PLATELET COUNT 271 10^3/uL (150-450); RED BLOOD COUNT 5.47 10^6/uL (3.72-5.28); RED CELL DISTRIBUTION WIDTH 14.2 % (11.5-14.0); TOTAL CELLS COUNTED % (AUTO) 100 %; WHITE BLOOD COUNT 6.6 10^3/uL (4.0-10.5)
[2019-01-09 22:30] LABS: ALANINE AMINOTRANSFERASE 42 U/L (9-52); ALKALINE PHOSPHATASE 162 U/L (38-126); ANION GAP 9 (5-19); ASPARTATE AMINO TRANSFERASE 28 U/L (14-36); BILIRUBIN,DIRECT 0.2 mg/dL (0.0-0.4); BILIRUBIN,TOTAL 0.5 mg/dL (0.2-1.3); BLOOD UREA NITROGEN 9 mg/dL (7-20); CALCIUM 10.2 mg/dL (8.4-10.2); CARBON DIOXIDE 29 mmol/L (22-30); CHLORIDE 108 mmol/L (98-107); GLUCOSE 114 mg/dL (75-110); POTASSIUM 3.6 mmol/L (3.6-5.0); SODIUM 145.5 mmol/L (137-145); TOTAL PROTEIN 7.4 g/dL (6.3-8.2)
[2019-01-10 01:32] LABS: APPEARANCE,URINE CLEAR; BILIRUBIN,URINE NEGATIVE (NEGATIVE); COLOR,URINE YELLOW; GLUCOSE, URINE NEGATIVE (NEGATIVE); KETONES,URINE NEGATIVE (NEGATIVE); LEUKOCYTE ESTERASE,URINE NEGATIVE (NEGATIVE); NITRITE,URINE NEGATIVE (NEGATIVE); PROTEIN,URINE NEGATIVE (NEGATIVE); URINE SPECIFIC GRAVITY 1.019; UROBILINOGEN,URINE NEGATIVE mg/dL (<2.0)
--- NOTE | 2019-01-10 02:03 | ER Document Report ---
ED General - General Chief Complaint: Urinary Problem Stated Complaint: FEVER Time Seen by Provider: 01/09/19 21:17 Primary Care Provider: MARGO FLETCHER MD [Primary Care Provider] - Follow up as needed TRAVEL OUTSIDE OF THE [place] IN LAST 30 DAYS: No - HPI Notes: Patient is an 83-year-old female brought in for evaluation by her son. He is her primary validation technician and the patient is nonverbal. In short, her was elevated. He states she normally runs around 97, today she was 98.6. He was concerned that she could have a urinary tract infection. He states that she gets these f requently. She has had no vomiting. Eating and drinking normally. She has had some frequent loose stools, but no marlin watery diarrhea. She was on an antibiotic a little over a month ago. - Related Data Allergies/Adverse Reactions: No Known Allergies Allergy (Verified 06/06/18 11:37) Past Medical History - General Information source: Relative - Son - Social History Smoking Status: Never Smoker Chew tobacco use (# tins/day): No Frequency of alcohol use: None Family History: Reviewed & Not Pertinent Patient has suicidal ideation: No Patient has homicidal ideation: No - Past Medical History Cardiac Medical History: Reports: Hx Hypercholesterolemia, Hx Hypertension Neurological Medical History: Reports: Hx Seizures Renal/ Medical History: Denies: Hx Peritoneal Dialysis Musculoskeletal Medical History: Reports Hx Arthritis Psychiatric Medical History: Reports: Hx Dementia, Hx Depression - Immunizations Immunizations up to date: Yes Hx Diphtheria, Pertussis, Tetanus Vaccination: Yes Review of Systems - Review of Systems -: Yes ROS unobtainable due to patient's medical condition - Patient is nonverbal, otherwise review of systems is negative per son Physical Exam - Vital signs Vitals: Temp Pulse Resp BP Pulse Ox 98.5 F 78 12 152/86 H 98 01/09/19 20:23 01/09/19 20:23 01/09/19 20:23 01/09/19 20:23 01/09/19 20:23 - Notes Notes: 83-year-old female, lying in bed, smiling pleasantly. No acute distress. Head is normocephalic and atraumatic. Oral mucosa is moist. Heart is regular rate and rhythm, lungs are clear to oscillation bilaterally. Abdomen soft, nontender, normoactive bowel sounds. Skin is warm and dry. She does have a 2 x 6 cm pressure ulcer, sacral, on the left buttock, primarily first-degree with a small area of second-degree. Peripheral pulses are equal. Posterior calves are nontender. Patient moves all 4 extremities spontaneously. Course - Re-evaluation Re-evalutation: 01/10/19 02:03 Patient presents to the emergency department for evaluation in short,. Patient often gets UTIs when her temperature is slightly elevated. Her laboratory investigations here, including urinalysis fairly unremarkable. She does have a very mild hyponatremia. She is having increased loose stools, but no marlin watery diarrhea. We did order a stool sample, but the patient was unable to provide one. I will go ahead and give him a specimen cup and an outpatient order. She is not having profuse watery diarrhea, I am not inclined to treat this empirically at this time. Patient's son is told that he should bring her back to the emergency department with any worsening or new concerning symptoms. He voiced understanding to this, and will bring her to follow-up with her primary care physician this week. 01/10/19 02:04 - Vital Signs Vital signs: Temp Pulse Resp BP Pulse Ox 98.5 F 78 12 152/86 H 98 01/09/19 20:23 01/09/19 20:23 01/09/19 20:23 01/09/19 20:23 01/09/19 20:23 - Laboratory Result Diagrams: 01/09/19 22:02 01/09/19 22:02 Laboratory results interpreted by me: 01/09/19 01/09/19 22:02 22:02 RBC 5.47 H Hct 47.1 H RDW 14.2 H Sodium 145.5 H Chloride 108 H Glucose 114 H Alkaline Phosphatase 162 H Discharge - Discharge Clinical Impression: Alzheimer's dementia, Sacral decubitus ulcer, stage II Diarrhea Qualifiers: Diarrhea type: unspecified type Qualified Code(s): R19.7 - Diarrhea, unspecified Condition: Stable Disposition: HOME, SELF-CARE Instructions: Diarrhea, Nonspecific ([facility]) Additional Instructions: Obtain a stool sample and bring it to the lab for outpatient testing. Try to keep pressure off the sore area on her left buttock. Use the dressing as instructed. Follow-up with her doctor this week. Return to the emergency department with worsening or new concerning symptoms of any sort. Forms: Follow-Up Laboratory Testing Referrals: MARGO FLETCHER MD [Primary Care Provider] - Follow up as needed
[2019-01-10 02:58] VITALS: BP 153/81
== END 2019-01-10 02:15 | disposition home or self-care (01) ==
LOC: ER 19:37
DX: G30.9 Alzheimer's disease, unspecified (principal); F02.80 Dementia in other diseases classified elsewhere, unspecified severity, without behavioral disturbance, psychotic disturbance, mood disturbance, and anxiety; L89.152 Pressure ulcer of sacral region, stage 2; R19.7 Diarrhea, unspecified; R30.0 Dysuria; R50.9 Fever, unspecified; Z87.440 Personal history of urinary (tract) infections; E78.00 Pure hypercholesterolemia, unspecified; I10 Essential (primary) hypertension
CPT/HCPCS: 36415; 80053; 81001; 85025; 99284

== ENCOUNTER 2019-09-10 10:03 | Emergency (ER) | payer MEDICARE, MEDICAID ==
--- NOTE | 2019-09-10 10:07 | ER Document Report ---
ED General - General TRAVEL OUTSIDE OF THE [place] IN LAST 30 DAYS: No <SONDRA HUANG - Last Filed: 09/10/19 10:07> <DERRICK RAMIREZ - Last Filed: 09/10/19 10:13> - General Chief Complaint: Altered Mental Status Stated Complaint: ALTERED MENTAL STATUS Primary Care Provider: JOSE ANTONIO ALCAZAR DO [Primary Care Provider] - Follow up as needed Notes: This an 83-year-old female with dementia cognitive decline 100% dependent on all ADLs, and a recent UTI status post Cipro for 1 week who presents with worsening mental status. Her son who is involved with her and takes care of her full-time with the help of an aide says that she is been less interactive with her eyes and has not been eating or drinking. He thinks that she is dehydrated. Is been going on for about 2 days. No vomiting no trauma no falls no med changes other than the Cipro. (DERRICK RAMIREZ) - Related Data Allergies/Adverse Reactions: No Known Allergies Allergy (Verified 06/06/18 11:37) Past Medical History - Social History Family History: Reviewed & Not Pertinent - Past Medical History Cardiac Medical History: Reports: Hx Hypercholesterolemia, Hx Hypertension Neurological Medical History: Reports: Hx Seizures Renal/ Medical History: Denies: Hx Peritoneal Dialysis Musculoskeletal Medical History: Reports Hx Arthritis Psychiatric Medical History: Reports: Hx Dementia, Hx Depression - Immunizations Immunizations up to date: Yes Hx Diphtheria, Pertussis, Tetanus Vaccination: Yes <SONDRA HUANG - Last Filed: 09/10/19 10:07> - Social History Smoking Status: Never Smoker <DERRICK RAMIREZ - Last Filed: 09/10/19 10:13> Review of Systems - Review of Systems -: Yes ROS unobtainable due to patient's medical condition <DERRICK RAMIREZ - Last Filed: 09/10/19 10:13> - Review of Systems Notes: REVIEW OF SYSTEMS Not obtained: Dementia PHYSICAL EXAMINATION General: Elderly eyes closed Head: Atraumatic, normocephalic ENT: Mouth normal, oropharynx moist, no exudates or tonsillar enlargement Eyes: Conjunctiva normal, pupils equal, lids normal Neck: No JVD, supple, no guarding CVS: Normal rate, regular rhythm, no murmurs Resp: No resp distress, equal and normal breath sounds bilaterally GI: Nondistended, soft, no tenderness to palpation, no rebound or guarding Ext: No deformities, no edema, normal range of motion in upper and lower ext Back: No CVA or midline TTP Skin: No rash, warm Lymphatic: No lymphadeopathy noted Neuro: Eyes closed. Voluntarily resists eye opening. Resists hitting herself in the face when arm is dropped over the face. Strongly withdraws with all 4 extremities. Some rigidity bilaterally.. (DERRICK RAMIREZ) Discharge <SONDRA HUANG - Last Filed: 09/10/19 10:07> <DERRICK RAMIREZ - Last Filed: 09/10/19 10:13> - Discharge Referrals: JOSE ANTONIO ALCAZAR DO [Primary Care Provider] - Follow up as needed
[2019-09-10] MEDS ORDERED: RINGERS SOLUTION,LACTATED 1,000 ML IV ONE ×2 (10:10→11:31)
[2019-09-10 10:37] LABS: APPEARANCE,URINE CLEAR; BILIRUBIN,URINE NEGATIVE (NEGATIVE); COLOR,URINE YELLOW; GLUCOSE, URINE NEGATIVE (NEGATIVE); KETONES,URINE TRACE mg/dL (NEGATIVE); LEUKOCYTE ESTERASE,URINE NEGATIVE (NEGATIVE); NITRITE,URINE NEGATIVE (NEGATIVE); PROTEIN,URINE 100 mg/dL (NEGATIVE); URINE SPECIFIC GRAVITY 1.016; UROBILINOGEN,URINE NEGATIVE mg/dL (<2.0)
[2019-09-10 10:53] LABS: ABSOLUTE EOSINOPHILS # (AUTO) 0.2 10^3/uL (0.0-0.6); ABSOLUTE LYMPHOCYTES (AUTO) 2.5 10^3/uL (0.5-4.7); ABSOLUTE MONOCYTES (AUTO) 0.5 10^3/uL (0.1-1.4); ABSOLUTE NEUT (AUTO) 3.2 10^3/uL (1.7-8.2); BASOPHILS % (AUTO) 0.6 % (0-2); EOSINOPHILS % (AUTO) 3.1 % (0-6); HEMATOCRIT 47.4 % (36.0-47.0); HEMOGLOBIN 15.2 g/dL (12.0-15.5); LYMPHOCYTES % (AUTO) 39.2 % (13-45); MEAN CORPUSCULAR HEMOGLOBIN 28.5 pg (27.0-33.4); MEAN CORPUSCULAR VOLUME 89 fl (80-97); MONOCYTES % (AUTO) 8.3 % (3-13); PLATELET COUNT 254 10^3/uL (150-450); RED BLOOD COUNT 5.33 10^6/uL (3.72-5.28); RED CELL DISTRIBUTION WIDTH 13.9 % (11.5-14.0); SEGMENTED NEUTROPHILS % (AUTO) 48.8 % (42-78); TOTAL CELLS COUNTED % (AUTO) 100 %; WHITE BLOOD COUNT 6.5 10^3/uL (4.0-10.5)
[2019-09-10 11:13] LABS: ANION GAP 7 (5-19); BLOOD UREA NITROGEN 10 mg/dL (7-20); CALCIUM 9.8 mg/dL (8.4-10.2); CARBON DIOXIDE 35 mmol/L (22-30); CHLORIDE 107 mmol/L (98-107); GLUCOSE 96 mg/dL (75-110); POTASSIUM 3.5 mmol/L (3.6-5.0)
--- NOTE | 2019-09-10 11:53 | ER Document Report ---
ED General - General Chief Complaint: Altered Mental Status Stated Complaint: ALTERED MENTAL STATUS Primary Care Provider: JOSE ANTONIO ALCAZAR DO [ACTIVE STAFF] - Follow up as needed Notes: Patient presents with altered mental status, for 3 days, decreased interaction via visual cues. History of dementia nonverbal. At home bedbound, 100% ADLs taken care of by son and livestock caretaker. Recent UTI treated with Cipro no fevers no vomiting. No traumas. No other med changes. TRAVEL OUTSIDE OF THE [place] IN LAST 30 DAYS: No - Related Data Allergies/Adverse Reactions: No Known Allergies Allergy (Verified 06/06/18 11:37) Home Medications: omeprazole, vimpat, memantine, 81 mg apirin, atorvaststin, donepezil, amlodipine Past Medical History - Social History Smoking Status: Unknown if Ever Smoked Family History: Reviewed & Not Pertinent Patient has suicidal ideation: No Patient has homicidal ideation: No - Past Medical History Cardiac Medical History: Reports: Hx Hypercholesterolemia, Hx Hypertension Neurological Medical History: Reports: Hx Seizures Renal/ Medical History: Denies: Hx Peritoneal Dialysis Musculoskeletal Medical History: Reports Hx Arthritis Psychiatric Medical History: Reports: Hx Dementia, Hx Depression - Immunizations Immunizations up to date: Yes Hx Diphtheria, Pertussis, Tetanus Vaccination: Yes Review of Systems - Review of Systems Notes: REVIEW OF SYSTEMS G obtained: Dementia PHYSICAL EXAMINATION General: No acute distress, well-nourished Head: Atraumatic, normocephalic ENT: Mouth normal, oropharynx moist, no exudates or tonsillar enlargement Eyes: Conjunctiva normal, pupils equal, lids normal Neck: No JVD, supple, no guarding CVS: Normal rate, regular rhythm, no murmurs Resp: No resp distress, equal and normal breath sounds bilaterally GI: Nondistended, soft, no tenderness to palpation, no rebound or guarding Ext: No deformities, no edema, normal range of motion in upper and lower ext Back: No CVA or midline TTP Skin: No rash, warm Lymphatic: No lymphadeopathy noted Neuro: He resists eye opening, does not follow commands but withdraws strongly with all 4 extremities.. -: Yes ROS unobtainable due to patient's medical condition Physical Exam - Vital signs Vitals: Resp Pulse Ox 13 97 09/10/19 10:18 09/10/19 10:18 Course - Re-evaluation Re-evalutation: 09/10/19 11:51 Elderly female with dementia presents with decreased responsiveness. Clinically dehydrated. Recent UTI treatment. Will rule out UTI. No fever no tachycardia vitals normal. When I drop her head on her face she was out of the way and see ms to be voluntarily resisting my exam. Patient's labs are done: Hyponatremia/dehydration with some mild azotemia otherwise normal. No convincing evidence for UTI. Offered admission but I think the patient can be hydrated, is already asking for food. She ate pudding was given 1 L of saline. She is able to drink here in the ED and I discussed hydration instructions at home with the family. Think she is stable for discharge given that she has excellent care and follow-up. I have discussed with the patient there likely diagnosis, aftercare plan, follow- up plans and my usual and customary return precautions. They verbalized understanding of this. - Vital Signs Vital signs: Temp Pulse Resp BP Pulse Ox 99.6 F 20 174/97 H 100 09/10/19 10:37 09/10/19 11:01 09/10/19 11:01 09/10/19 11:01 - Laboratory Result Diagrams: 09/10/19 10:30 09/10/19 10:30 Laboratory results interpreted by me: 09/10/19 09/10/19 09/10/19 10:18 10:30 10:30 RBC 5.33 H Hct 47.4 H Sodium 148.9 H Potassium 3.5 L Carbon Dioxide 35 H Creatinine 0.48 L Urine Protein 100 H Urine Ketones TRACE H Urine Blood SMALL H Discharge - Discharge Clinical Impression: Mild dehydration Condition: Good Disposition: HOME, SELF-CARE Instructions: Dehydration ([facility]) Additional Instructions: Please hydrate the patient with fluids including water/Gatorade/Pedialyte. Pl ease return to the emergency room if she will not hydrate or displays any worsening mental status. Referrals: JOSE ANTONIO ALCAZAR, [ACTIVE STAFF] - Follow up as needed
[2019-09-10 14:09] VITALS: BP 174/84
--- NOTE | 2019-09-10 14:35 | RADIOLOGY REPORT (SQ) ---
EXAM DESCRIPTION: CT HEAD WITHOUT COMPLETED DATE/TIME: 09/10/2019 10:46 am REASON FOR STUDY: confusion COMPARISON: 03/16/2018 CT, MR 03/24/2018 TECHNIQUE: Axial images acquired through the brain without intravenous contrast. Images reviewed wi th bone, brain and subdural windows. Additional sagittal and coronal reconstructions were generated. Images stored on PACS. All CT scanners at this facility use dose modulation, iterative reconstruction, and/or weight based d osing when appropriate to reduce radiation dose to as low as reasonably achievable (ALARA). [facility]: Dose Right [facility]: CareDose [facility]: Dose Right [facility]: Teradose 4D [facility]: [facility] in [place] RADIATION DOSE: CT Rad equipment meets quality standard of care and radiation dose reduction techniq ues were employed. CTDIvol: 48.7 mGy. DLP: 1005 mGy-cm.mGy. LIMITATIONS: None. FINDINGS: VENTRICLES: Prominent. CEREBRUM: No masses. No hemorrhage. No midline shift. Areas of low density in the white matter mos t likely due to chronic micro-vascular ischemic change. No evidence for acute large vascular territo ry infarction. CEREBELLUM: No masses. No hemorrhage. No alteration of density. No evidence for acute infarction. EXTRAAXIAL SPACES: Age-related involutional change. No fluid collections. No masses. ORBITS AND GLOBE: No intra- or extraconal masses. Normal contour of globe without masses. Bilateral cataract surgery. CALVARIUM: No fracture. PARANASAL SINUSES: No fluid or mucosal thickening. SOFT TISSUES: No mass or hematoma. OTHER: No other significant finding. IMPRESSION: CHRONIC CHANGES OF ATROPHY AND MICROVASCULAR ISCHEMIA. NO ACUTE PROCESS. EVIDENCE OF ACUTE STROKE: NO. TECHNICAL DOCUMENTATION: JOB ID: [id number] Quality ID # [id number]: Final reports with documentation of one or more dose reduction techniques (e.g., Au tomated exposure control, adjustment of the mA and/or kV according to patient size, use of iterative reconstruction technique) 2010 [employer]- All Rights Reserved Reading location - IP/workstation name: [email or web address]
--- NOTE | 2019-09-10 22:12 | EKG REPORT ---
SEVERITY:- ABNORMAL ECG - SINUS RHYTHM PROBABLE LEFT VENTRICULAR HYPERTROPHY : Confirmed by: Gill Mcgovern 10-Sep-2019 22:11:52
== END 2019-09-10 14:09 | disposition home or self-care (01) ==
LOC: ER 10:03
DX: E86.0 Dehydration (principal); E87.1 Hypo-osmolality and hyponatremia; F03.90 Unspecified dementia, unspecified severity, without behavioral disturbance, psychotic disturbance, mood disturbance, and anxiety; R56.9 Unspecified convulsions; E78.00 Pure hypercholesterolemia, unspecified; I10 Essential (primary) hypertension; Z79.899 Other long term (current) drug therapy; Z79.82 Long term (current) use of aspirin; Z74.01 Bed confinement status; Z87.440 Personal history of urinary (tract) infections
CPT/HCPCS: 93005; 99285; 96360; 96361; 36415; 85025; 80048; 81001; 70450; 93010; J7120

== ENCOUNTER 2019-09-30 10:53 | Inpatient (IN) | payer MEDICARE, MEDICAID ==
[2019-09-30] MEDS ORDERED: NORMAL SALINE 1000 ML 500 ML IV ONE (11:45)
[2019-09-30 11:46] LABS: ABSOLUTE BASOPHILS # (AUTO) 0.1 10^3/uL (0.0-0.2); ABSOLUTE EOSINOPHILS # (AUTO) 0.1 10^3/uL (0.0-0.6); ABSOLUTE LYMPHOCYTES (AUTO) 2.6 10^3/uL (0.5-4.7); ABSOLUTE MONOCYTES (AUTO) 0.6 10^3/uL (0.1-1.4); ABSOLUTE NEUT (AUTO) 3.5 10^3/uL (1.7-8.2); BASOPHILS % (AUTO) 1.2 % (0-2); EOSINOPHILS % (AUTO) 1.7 % (0-6); HEMATOCRIT 47.3 % (36.0-47.0); HEMOGLOBIN 15.3 g/dL (12.0-15.5); LYMPHOCYTES % (AUTO) 38.2 % (13-45); MEAN CORPUSCULAR HEMOGLOBIN 28.1 pg (27.0-33.4); MEAN CORPUSCULAR HGB CONC 32.4 g/dL (32.0-36.0); MEAN CORPUSCULAR VOLUME 87 fl (80-97); MONOCYTES % (AUTO) 8.7 % (3-13); PLATELET COUNT 287 10^3/uL (150-450); RED BLOOD COUNT 5.45 10^6/uL (3.72-5.28); RED CELL DISTRIBUTION WIDTH 13.6 % (11.5-14.0); SEGMENTED NEUTROPHILS % (AUTO) 50.2 % (42-78); TOTAL CELLS COUNTED % (AUTO) 100 %; WHITE BLOOD COUNT 6.9 10^3/uL (4.0-10.5)
[2019-09-30 11:50] LABS: INTERNATIONAL RATION (INR) 1.07; PROTHROMBIN TIME 13.9 SEC (11.4-15.4)
[2019-09-30 11:54] LABS: ALKALINE PHOSPHATASE 137 U/L (38-126); ANION GAP 9 (5-19); ASPARTATE AMINO TRANSFERASE 31 U/L (14-36); BILIRUBIN,DIRECT 0.1 mg/dL (0.0-0.4); BILIRUBIN,TOTAL 0.8 mg/dL (0.2-1.3); BLOOD UREA NITROGEN 9 mg/dL (7-20); CALCIUM 9.8 mg/dL (8.4-10.2); CARBON DIOXIDE 34 mmol/L (22-30); CHLORIDE 103 mmol/L (98-107); GLUCOSE 98 mg/dL (75-110); POTASSIUM 3.1 mmol/L (3.6-5.0); TOTAL PROTEIN 7.1 g/dL (6.3-8.2)
[2019-09-30] MEDS ORDERED: NORMAL SALINE 1000 ML 1,000 ML IV ONE (14:48)
--- NOTE | 2019-09-30 15:01 | ER Document Report ---
ED General - General TRAVEL OUTSIDE OF THE [place] IN LAST 30 DAYS: No - Related Data Home Medications: omeprazole. potassium chloried oral supp 10%. atorvastatin. 81mg asa. vimpat. donepezil. amlodipine. memantine <CHLOE SMITH - Last Filed: 09/30/19 16:23> <JAKI MORARICIA - Last Filed: 09/30/19 18:31> - General Chief Complaint: Won't Eat Stated Complaint: POSSIBLE DEHYDRATION Time Seen by Provider: 09/30/19 13:53 Primary Care Provider: MEEK POMPA MD [Primary Care Provider] - Follow up as needed Notes: 83-year-old female presents the emergency department under the care of her son who is her primary caregiver due to decreased oral intake and possible intestinal obstruction. States that the patient was diagnosed using an x-ray on Tuesday with a partial blockage of her intestines. They were called with this diagnosis on Tuesday and told to start clear liquids, since then she has not been swallowing liquids but simply lying in trouble out of her mouth. She is nonverbal at baseline and cannot ambulate at baseline, needs help with all activities of daily living. Son denies fevers or vomiting, admits diarrhea. States he is concerned that may she may still have a small bowel obstruction would like to have it checked. Also states he is concerned that she may be dehydrated and he would like to get some fluids. (CHLOE SMITH) - Related Data Allergies/Adverse Reactions: No Known Allergies Allergy (Verified 06/06/18 11:37) Past Medical History - General Information source: Relative Cannot obtain history due to: Dementia - Social History Smoking Status: Never Smoker Lives with: Family Family History: Reviewed & Not Pertinent Patient has suicidal ideation: No Patient has homicidal ideation: No - Past Medical History Cardiac Medical History: Reports: Hx Hypercholesterolemia, Hx Hypertension Neurological Medical History: Reports: Hx Seizures Renal/ Medical History: Denies: Hx Peritoneal Dialysis Musculoskeletal Medical History: Reports Hx Arthritis Psychiatric Medical History: Reports: Hx Dementia, Hx Depression - Immunizations Immunizations up to date: Yes Hx Diphtheria, Pertussis, Tetanus Vaccination: Yes <CHLOE SMITH - Last Filed: 09/30/19 16:23> Review of Systems - Review of Systems -: Yes ROS unobtainable due to patient's medical condition - Patient cannot answer any questions whatsoever. Constitutional: Weakness - Generalized weakness. denies: Fever <CHLOE SMITH - Last Filed: 09/30/19 16:23> Physical Exam - Vital signs Interpretation: Hypertensive, Tachycardic <CHLOE SMITH - Last Filed: 09/30/19 16:23> - Vital signs Vitals: Temp Pulse Resp BP Pulse Ox 98.8 F 105 H 20 140/72 H 96 09/30/19 10:58 09/30/19 10:58 09/30/19 10:58 09/30/19 10:58 09/30/19 10:58 - Notes Notes: GENERAL: Sleeping in the bed, does not fight the examination, I am able to sit her up to listen to her lungs, she gives small amount of help with sitting up. No acute distress. HEAD: Normocephalic, atraumatic ENT: Oral mucosa dry, tongue midline. NECK: Full range of motion, supple, trachea midline. LUNGS: Clear to auscultation bilaterally, no wheezes, rales or rhonchi, no respiratory distress. HEART: Regular rate and rhythm, no murmurs, gallops, rubs. ABDOMEN: Soft, nontender, nondistended, bowel sounds present in all 4 quadrants. EXTREMITIES: Gives a small amount of help to sit herself up, otherwise does not move, no edema, radial and dorsalis pedis pulses 2/4 bilaterally. No cyanosis. NEUROLOGICAL: Sleeping, minimal interaction, nonverbal, at baseline per son.. SKIN: Warm, Dry. (CHLOE SMITH) Course - Laboratory Result Diagrams: 09/30/19 11:07 09/30/19 11:07 <CHLOE SMITH - Last Filed: 09/30/19 16:23> - Laboratory Result Diagrams: 09/30/19 11:07 09/30/19 11:07 - Consults dr reyes Time consulted: 18:30 Consulted provider: will come to ER dr granados Time consulted: 18:30 <CARYN MORA - Last Filed: 09/30/19 18:31> - Re-evaluation Re-evalutation: 09/30/19 16:23 CBC unremarkable, coags normal, CMP shows low potassium at 3.1, this will be repleted IV, otherwise unremarkable acute abdominal series is pending. If this is negative patient will be discharged to home with instructions to follow-up as an outpatient. We are unable to get a urinalysis but we did get a urine culture. Urine culture has been sent to the lab. We will call them if it grows anything out. 09/30/19 16:24 If acute abdominal series shows possible obstruction we will discuss this with the surgeon and have her start drinking oral contrast. (CHLOE SMITH) 09/30/19 18:28 Acute Abdomen Series 09/30/19 14:48 IMPRESSION: Dilated gas-filled loop of small bowel within the central abdomen compatible small bowel obstruction. Gas is however present distally throughout the colon. Son at the bedside instructed on small bowel obstruction. Instructed on NG tube, CT with contrast and Admission. Dr. Reyes consulted, agrees on admission, Dr. baker also contacted for surgical consult (CARYN MORA) - Vital Signs Vital signs: Temp Pulse Resp BP Pulse Ox 98.8 F 105 H 20 140/72 H 96 09/30/19 10:58 09/30/19 10:58 09/30/19 10:58 09/30/19 10:58 09/30/19 10:58 - Laboratory Laboratory results interpreted by me: 09/30/19 09/30/19 11:07 11:07 RBC 5.45 H Hct 47.3 H Sodium 146.2 H Potassium 3.1 L Carbon Dioxide 34 H Creatinine 0.43 L Alkaline Phosphatase 137 H - Consults dr reyes Reason for consultation: 09/30/19 18:30 sbo (CARYN MORA) dr granados Reason for consultation: 09/30/19 18:30 sbo (CARYN MORA) Discharge <CHLOE SMITH - Last Filed: 09/30/19 16:23> - Discharge Admitting Provider: Sen (Hospitalist) Unit Admitted: Surgical Floor <CARYN MORA - Last Filed: 09/30/19 18:31> - Discharge Clinical Impression: SBO (small bowel obstruction) Condition: Stable Disposition: ADMITTED INPATIENT Referrals: MEEK POMPA MD [Primary Care Provider] - Follow up as needed
[2019-09-30] MEDS ORDERED: POTASSIUM CHLORIDE 20 MEQ PACKET PO ONE (16:24)
--- NOTE | 2019-09-30 17:16 | RADIOLOGY REPORT (SQ) ---
EXAM DESCRIPTION: ACUTE ABDOMEN SERIES COMPLETED DATE/TIME: 09/30/2019 4:45 pm REASON FOR STUDY: recent SBO, no taking PO COMPARISON: None. NUMBER OF VIEWS: Three views. TECHNIQUE: Frontal chest, supine abdomen and upright/decubitus abdomen radiographic images acquired. LIMITATIONS: None. FINDINGS: CHEST: Lungs clear of infiltrates. FREE AIR: None. No abnormal gas collections. BOWEL GAS PATTERN: Dilated gas-filled loop of small bowel within the central abdomen measuring 6 cm. Gas throughout a nondistended colon. CALCIFICATIONS: No suspicious calcifications. HARDWARE: None in the abdomen. SOFT TISSUES: No gross mass or suggestion of organomegaly. BONES: No acute fracture. No worrisome bone lesions. OTHER: No other significant finding. IMPRESSION: Dilated gas-filled loop of small bowel within the central abdomen compatible small bowel obstruction. Gas is however present distally throughout the colon. TECHNICAL DOCUMENTATION: JOB ID: [id number] [employer]- All Rights Reserved Reading location - IP/workstation name: [email or web address]
[2019-09-30 19:13] LABS: APPEARANCE,URINE CLEAR; BILIRUBIN,URINE NEGATIVE (NEGATIVE); COLOR,URINE STRAW; GLUCOSE, URINE NEGATIVE (NEGATIVE); KETONES,URINE 20 mg/dL (NEGATIVE); LEUKOCYTE ESTERASE,URINE NEGATIVE (NEGATIVE); NITRITE,URINE NEGATIVE (NEGATIVE); PROTEIN,URINE NEGATIVE (NEGATIVE); URINE SPECIFIC GRAVITY 1.009; UROBILINOGEN,URINE NEGATIVE mg/dL (<2.0)
[2019-09-30] MEDS ORDERED: NORMAL SALINE 1000 ML 1,000 ML IV PRN (19:17)
[2019-09-30] MEDS ORDERED: DEXTROSE 40% GEL 15 GM TUBE PO PRN ×2 (19:17)
[2019-09-30] MEDS ORDERED: ONDANSETRON HCL INJ/PF 4 MG/2 ML SDV IV PRN (19:17)
[2019-09-30] MEDS ORDERED: ACETAMINOPHEN 325 MG TABLET NG PRN (19:17)
[2019-09-30] MEDS ORDERED: ACETAMINOPHEN 650 MG SUPP.RECT PR PRN (19:17)
[2019-09-30] MEDS ORDERED: DEXTROSE 50%-WATER 25 GM/50 ML DISP.SYRIN IV PRN ×2 (19:17)
[2019-09-30] MEDS ORDERED: GLUCAGON,HUMAN RECOMB 1 MG INJ SUBCUT PRN (19:17)
[2019-09-30] MEDS ORDERED: DEXTROSE 5%-NORMAL SALINE 1,000 ML with POTASSIUM CHLORIDE 10 MEQ IV PRN ×2 (19:30)
[2019-09-30] MEDS ORDERED: METOPROLOL TARTRATE PF/INJ 5 MG/5 ML SDV IV PRN (19:34)
[2019-09-30] MEDS ORDERED: HYDRALAZINE HCL INJ/PF 20 MG/1 ML SDV IV PRN (19:34)
--- NOTE | 2019-09-30 20:12 | PDOC H&P ---
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 She is bedbound and aphasic. She requires full assist with feeding. In addition to her dementia she has a history of hypertension, hyperlipidemia, gastroesophageal reflux disease, seizure disorder, gastroesophageal reflux disease and hypokalemia. Her son will lives with her and is the primary caregiver. It certainly appears that she is well cared for. Over last weekend her son noted that her appetite was poor. She had just gotten over a urinary tract infection and was having diarrhea. The diarrhea was C. difficile negative. Her son felt that she was in pain. An abdominal film at the patient's home was taken on September 24. Her physician did make a house call. The patient son was called with the results on Tuesday, September 26 and was told that she had a bowel obstruction and to give her clear liquids for the next 3 days. The son reports that she would have good days and bad days but her appetite finally declined. She exhibited lethargy and somnolence. At that point he decided that she should be evaluated at the emergency department. Laboratory studies revealed a low potassium but her CBC and the remainder of her chemistries were fairly unremarkable. An acute abdomen series of plain film showed dilated small bowel. The hospitalist service was called for admission. A CT scan had been ordered but not completed. Surgery will need to be consulted as well. The patient was admitted to the hospitalist service at this time. Past Medical History Cardiac Medical History: Reports: Hyperlipidema, Hypertension Pulmonary Medical History: Denies: Asthma, Chronic Obstructive Pulmonary Disease (COPD) Neurological Medical History: Reports: Seizures Denies: Hemorrhagic CVA, Ischemic CVA Endocrine Medical History: Denies: Diabetes Mellitus Type 2 Renal/ Medical History: Denies: Chronic Kidney Disease, Nephrolithiasis Malignancy Medical History: Reports: None GI Medical History: Reports: Gastroesophageal Reflux Disease Denies: Cirrhosis, Peptic Ulcer Disease Musculoskeltal Medical History: Reports: Arthritis Psychiatric Medical History: Reports: Dementia, Depression Denies: Alcohol Dependency, Substance Abuse, Tobacco Dependency Traumatic Medical History: Reports: None Hematology: Reports: None Infectious Medical History: Reports: Clostridium Difficile - She has had C. difficile years ago. Most recent test (last week) was negat Past Surgical History Past Surgical History: Reports: None Social History Information Source: Legal Guardian Lives with: Family - She lives with her son. Smoking Status: Never Smoker Electronic Cigarette use?: No Frequency of Alcohol Use: None Hx Recreational Drug Use: No Drugs: None Hx Prescription Drug Abuse: No - Advance Directive Resuscitation Status: Do Not Resuscitate Surrogate healthcare decision maker:: The patient son is the primary caregiver and decision maker. Family History Family History: Reviewed & Not Pertinent, CVA Parental Family History Reviewed: Yes - History of stroke in her family Children Family History Reviewed: Yes Sibling(s) Family History Reviewed.: Yes Medication/Allergy Home Medications: Amlodipine Besylate [Norvasc 2.5 mg Tablet] 2.5 mg PO Q12 03/23/18 Atorvastatin Calcium [Lipitor 40 mg Tablet] 40 mg PO DAILY 03/23/18 Donepezil HCl [Aricept] 10 mg PO DAILY 03/23/18 Lamotrigine [Lamictal] 150 mg PO Q12 03/23/18 Loratadine [Claritin 10 mg Tablet] 10 mg PO DAILY 03/23/18 Memantine HCl [Namenda] 5 mg PO DAILY 03/23/18 Potassium Chloride [Kaon-Cl 20 Meq/15 ml Udcup] 7.5 ml PO DAILY 03/23/18 Cephalexin Monohydrate [Keflex 500 mg Capsule] 500 mg PO BID #14 capsule 03/28/18 Cephalexin Monohydrate [Keflex 500 mg Capsule] 500 mg PO Q6H #28 capsule 06/06/18 Levofloxacin [Levaquin 500 mg Tablet] 500 mg PO DAILY #7 tablet 12/06/18 Allergies/Adverse Reactions: No Known Allergies Allergy (Verified 06/06/18 11:37) Review of Systems ROS unobtainable: Due to mental status - Some information was obtained from her son. All systems: reviewed and no additional remarkable complaints except as stated Constitutional: PRESENT: anorexia Gastrointestinal: PRESENT: abdominal pain, diarrhea Neurological: PRESENT: other - A phasic, functional quadriplegic Physical Exam Vital Signs: Temp Pulse Resp BP Pulse Ox 98.8 F 105 H 20 140/72 H 96 09/30/19 10:58 09/30/19 10:58 09/30/19 10:58 09/30/19 10:58 09/30/19 10:58 Intake & Output 09/29/19 09/30/19 10/01/19 06:59 06:59 06:59 Intake Total 1500 Balance 1500 Weight 56.1 kg General appearance: PRESENT: other - This is a well-developed 83-year-old female who does not appear to be in distress. Being aphasic it is hard to tell. During this encounter she did not wake up in response to her name. She did not respond when her bladder was straight cathed.. ABSENT: cooperative - Unable to cooperate Head exam: PRESENT: atraumatic, normocephalic Eye exam: PRESENT: other - Unable to assess Ear exam: PRESENT: normal external ear exam. ABSENT: bleeding, drainage Mouth exam: PRESENT: other - Unable to assess Neck exam: ABSENT: carotid bruit, JVD, lymphadenopathy, tenderness Respiratory exam: PRESENT: clear to auscultation jesus - Anteriorly, symmetrical, unlabored, other - Very limited inspiratory phase. Patient unable to comply with the command to take a deep breath.. ABSENT: rales, rhonchi, tachypnea, wh eezes Cardiovascular exam: PRESENT: RRR, +S1, +S2. ABSENT: diastolic murmur, systolic murmur Pulses: PRESENT: normal radial pulses, normal dorsalis pedis pul GI/Abdominal exam: PRESENT: distended, hypoactive bowel sounds, soft, other - Tympanitic. ABSENT: tenderness - The patient did not grimace to indicate any discomfort during palpation Rectal exam: PRESENT: deferred Gentrourinary exam: ABSENT: indwelling catheter Extremities exam: ABSENT: pedal edema Musculoskeletal exam: ABSENT: ambulatory Neurological exam: PRESENT: aphasic, other - Slight resting tremor in the right hand noted. Functional quadriplegia. Unable to assess further.. ABSENT: awake Psychiatric exam: PRESENT: flat affect, other - Lethargic and did not respond to verbal stimulation. ABSENT: agitated Focused psych exam: PRESENT: other - Lethargic/unresponsive Skin exam: PRESENT: dry, normal color, warm. ABSENT: rash Results Laboratory Results: 09/30/19 11:07 09/30/19 11:07 09/30/19 09/30/19 09/30/19 11:07 11:07 15:10 WBC 6.9 RBC 5.45 H Hgb 15.3 Hct 47.3 H MCV 87 MCH 28.1 MCHC 32.4 RDW 13.6 Plt Count 287 Seg Neutrophils % 50.2 Sodium 146.2 H Potassium 3.1 L Chloride 103 Carbon Dioxide 34 H Anion Gap 9 BUN 9 Creatinine 0.43 L Est GFR ( Amer) > 60 Glucose 98 Calcium 9.8 Total Bilirubin 0.8 AST 31 Alkaline Phosphatase 137 H Total Protein 7.1 Albumin 4.0 Urine Color Cancelled Urine Appearance Cancelled Urine pH Cancelled Ur Specific [place] Cancelled Urine Protein Cancelled Urine Glucose (UA) Cancelled Urine Ketones Cancelled Urine Blood Cancelled Urine Nitrite Cancelled Ur Leukocyte Esterase Cancelled Urine WBC (Auto) Cancelled Urine RBC (Auto) Cancelled 09/30/19 18:53 WBC RBC Hgb Hct MCV MCH MCHC RDW Plt Count Seg Neutrophils % Sodium Potassium Chloride Carbon Dioxide Anion Gap BUN Creatinine Est GFR ( Amer) Glucose Calcium Total Bilirubin AST Alkaline Phosphatase Total Protein Albumin Urine Color STRAW Urine Appearance CLEAR Urine pH 7.0 Ur Specific [place] 1.009 Urine Protein NEGATIVE Urine Glucose (UA) NEGATIVE Urine Ketones 20 H Urine Blood SMALL H Urine Nitrite NEGATIVE Ur Leukocyte Esterase NEGATIVE Urine WBC (Auto) 2 Urine RBC (Auto) 4 Impressions: Acute Abdomen Series 09/30/19 14:48 IMPRESSION: Dilated gas-filled loop of small bowel within the central abdomen compatible small bowel obstruction. Gas is however present distally throughout the colon. Assessment and Plan - Diagnosis (1) SBO (small bowel obstruction) Is this a current diagnosis for this admission?: Yes Plan: The small bowel obstruction likely started a week ago. It was initially discovered by her physician after a portable x-ray was obtained. He suggested clear liquids for several days. Her son realized that she was not getting better and felt that it was appropriate [facility] She does get recurrent urinary tract infections and this was one concern. Evaluation in the emergency department revealed a partial small bowel obstruction. The patient is n.p.o. with a nasogastric tube in place. A CT scan has been ordered. Surgery will be seeing the patient. We will keep the NG tube to low intermittent suction and try to avoid any oral medication. (2) Hypokalemia Is this a current diagnosis for this admission?: Yes Plan: The patient is on oral potassium supplementation. Despite this her serum p otassium is only 3.1. This is likely due to some recent diarrhea. I will utilize potassium chloride in the IV fluids that she will be getting for maintenance. Continue to monitor electrolytes. (3) Hypernatremia Is this a current diagnosis for this admission?: Yes Plan: Possible mild dehydration. Serum sodium is not too much higher than the upper limit normal. She will be getting intravenous fluids that are iso-osmotic. We will continue to monitor her electrolytes. (4) Alzheimer's dementia Qualifiers: Alzheimer's disease onset: unspecified onset Dementia behavioral disturbance: without behavioral disturbance Qualified Code(s): G30.9 - Alzheimer's disease, unspecified; F02.80 - Dementia in other diseases classified elsewhere without behavioral disturbance Is this a current diagnosis for this admission?: Yes Plan: She is currently on Aricept and Namenda. We will hold these medications until she is able to take medications and nutrition by mouth. (5) Aphasia Is this a current diagnosis for this admission?: Yes Plan: This is longstanding. It is unknown if this is a direct result of her advanced dementia. She does have a seizure disorder but it is less likely the cause of her current neurologic state. (6) Seizure disorder Is this a current diagnosis for this admission?: Yes Plan: We will continue her lacosamide and give it through her intravenous. (7) Gastroesophageal reflux disease Qualifiers: Esophagitis presence: without esophagitis Qualified Code(s): K21.9 - Gastro-esophageal reflux disease without esophagitis Is this a current diagnosis for this admission?: Yes Plan: We will utilize intravenous Protonix in lieu of her oral medication. (8) Hypertension Qualifiers: Hypertension type: essential hypertension Qualified Code(s): I10 - Essential (primary) hypertension Is this a current diagnosis for this admission?: Yes Plan: We will hold her amlodipine at this time. She will have intravenous medication available for tachycardia and or hypertension. Resume medications when the obstruction is resolved. (9) Hyperlipidemia Qualifiers: Hyperlipidemia type: unspecified Qualified Code(s): E78.5 - Hyperlipidemia, unspecified Is this a current diagnosis for this admission?: Yes Plan: Hold atorvastatin at this time. Resume when obstruction is resolved. 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 She is bedbound. She cannot feed herself. This is likely from end-stage dementia. - Plan Summary Summary: A nasogastric tube is in place. The patient will be n.p.o. Essential medications will be given through the intravenous. Nonessential medications will be held at this time. Surgery is going to see the patient after the CT scan has been performed. - Time Time Spent with patient: 35 or more minutes Medications reviewed and adjusted accordingly: Yes Anticipated discharge: Home - Inpatient Certification Based on my medical assessment, after consideration of the patient's comorbidities, presenting symptoms, or acuity I expect that the services needed warrant INPATIENT care.: Yes I certify that my determination is in accordance with my understanding of Medicare's requirements for reasonable and necessary INPATIENT services [42 CFR 412.3e].: Yes Medical Necessity: Failure to Improve With Outpatient Therapy, Need Close Monitoring Due to Risk of Patient Decompensation, Need For IV Fluids, Risk of Complication if Not Cared For in Hospital Post Hospital Care: D/C [employer]oter Documentation
--- NOTE | 2019-09-30 21:05 | RADIOLOGY REPORT (SQ) ---
EXAM DESCRIPTION: Single view of the abdomen CLINICAL HISTORY: 83 years Female, Confirm NG placement COMPARISON: Portable view of the abdomen obtained earlier in the day at 7:35 PM FINDINGS: The the NG tube has been withdrawn and now projects over the mid esophagus in the chest. A remains folded on itself. Lung volumes are low with asymmetric elevation left hemidiaphragm. The bowel gas pattern is unchanged with dilated loops of small bowel. IMPRESSION: NG tube is been withdrawn and now projects over the mid esophagus. It remains folded on itself.
[2019-09-30] MEDS ORDERED: LACOSAMIDE INJ/PF 200 MG/20 ML SDV IV SCH (22:00)
[2019-09-30] MEDS ORDERED: D5 IV ONE (22:15)
[2019-09-30] MEDS ORDERED: [UNRECOGNIZED DRUG - OTHER] IV ONE (22:15)
[2019-09-30] MEDS ORDERED: RTUINJ IV ONE (22:15)
[2019-09-30] MEDS ORDERED: POTASSI CL IV ONE (22:15)
[2019-09-30] MEDS ORDERED: POTASSI CL 10 MEQ/D5-1/2NS 1L 1000 ML IV PRN (22:21)
[2019-09-30] MEDS: HEPARIN SOD (PORCINE) 5,000 UNIT/ML 1 ML VIAL SUBCUT SCH (22:35)
--- NOTE | 2019-10-01 01:41 | RADIOLOGY REPORT (SQ) ---
EXAM DESCRIPTION: CT scan of the abdomen and pelvis without contrast. CLINICAL HISTORY: 83 years Female; PAIN, SBO? TECHNIQUE: CT of the abdomen and pelvis without intravenous contrast. All CT scans at this facility use dose modulation, iterative reconstruction, and/or weight based dosing when appropriate to reduce radiation dose to as low as reasonably achievable. This exam was performed according to our department optimization program which includes automated exposure control, adjustment of the mA and/or kv according to patient size and/or use of iterative reconstruction technique. COMPARISON: None. FINDINGS: Lower chest: Parenchymal volume loss is noted in the left lower lobe. Vascular calcifications. An NG tube passes through the esophagus and into the stomach. Abdomen: Liver and biliary tree: The unenhanced liver is unremarkable. The gallbladder contains hyperdense material layering dependently consistent with stones or sludge. Pancreas: Normal Spleen:Within normal limits Kidneys: Kidneys are normal in size, shape and position. No stones. No mass or hydronephrosis. Adrenal glands:Within normal limits Vascular structures: Atherosclerotic plaque is seen in the aorta. No aneurysm. Retroperitoneum: No mass or lymphadenopathy Abdominal wall: normal GI: Oral contrast is seen in the small bowel on this is of normal caliber. The colon is distended with air and the sigmoid colon and rectal vault contains fluid. No bowel obstruction is identified. No focal bowel wall thickening. The stomach is decompressed and an NG tube is in the stomach. Appendix: The appendix is not clearly seen. General: No free air. No free fluid Pelvis: Lymph nodes: No mass or lymphadenopathy Bladder: Unremarkable. Pelvis: Multiple calcified fibroids is noted in the uterus. No adnexal abnormality. Bones: No acute bone findings. IMPRESSION: 1. Stones or sludge in the gallbladder. 2. Abnormal appearance of the colon which is distended and contains air and fluid. However, there is no inflammation or obstruction. The small bowel is of normal caliber and is completely decompressed.
[2019-10-01] MEDS: HEPARIN SOD (PORCINE) 5,000 UNIT/ML 1 ML VIAL SUBCUT SCH ×3 (05:37→21:31)
[2019-10-01 05:48] LABS: ABSOLUTE BASOPHILS # (AUTO) 0.1 10^3/uL (0.0-0.2); ABSOLUTE LYMPHOCYTES (AUTO) 2.1 10^3/uL (0.5-4.7); ABSOLUTE MONOCYTES (AUTO) 0.6 10^3/uL (0.1-1.4); ABSOLUTE NEUT (AUTO) 4.8 10^3/uL (1.7-8.2); BASOPHILS % (AUTO) 1.4 % (0-2); EOSINOPHILS % (AUTO) 0.6 % (0-6); HEMATOCRIT 41.8 % (36.0-47.0); HEMOGLOBIN 13.7 g/dL (12.0-15.5); LYMPHOCYTES % (AUTO) 27.7 % (13-45); MEAN CORPUSCULAR HEMOGLOBIN 28.2 pg (27.0-33.4); MEAN CORPUSCULAR HGB CONC 32.8 g/dL (32.0-36.0); MEAN CORPUSCULAR VOLUME 86 fl (80-97); PLATELET COUNT 227 10^3/uL (150-450); RED BLOOD COUNT 4.86 10^6/uL (3.72-5.28); RED CELL DISTRIBUTION WIDTH 13.6 % (11.5-14.0); SEGMENTED NEUTROPHILS % (AUTO) 62.3 % (42-78); TOTAL CELLS COUNTED % (AUTO) 100 %; WHITE BLOOD COUNT 7.7 10^3/uL (4.0-10.5)
[2019-10-01 06:16] LABS: ANION GAP 7 (5-19); BLOOD UREA NITROGEN 4 mg/dL (7-20); CALCIUM 8.9 mg/dL (8.4-10.2); CARBON DIOXIDE 33 mmol/L (22-30); CHLORIDE 104 mmol/L (98-107); GLUCOSE 128 mg/dL (75-110)
[2019-10-01 06:20] LABS: POTASSIUM 2.6 mmol/L (3.6-5.0)
[2019-10-01] MEDS: POTASSI CL 40 MEQ/D5-1/2NS 1L 40 MEQ/1,000 ML RTUINJ IV PRN ×2 (06:44→17:50)
--- NOTE | 2019-10-01 06:45 | PDOC CONSULTATION ---
Consultation Consult Date: 10/01/19 Provider Consulted: SURGICAL SURGICALIST Consult reason:: dilated bowel on X-ray. History of Present Illness Admission Date/PCP: 09/30/19 19:08 MEEK POMPA MD History of Present Illness: COREEN BHAKTA is a 83 year old female seen in consultation at the request of the hospitalist service. Patient has a history of a recent urinary tract infection, she began having diarrhea at home, with lethargy and somnolence. The patient has end-stage dementia. She was admitted for dilation of her small intestine seen on x-ray. The family reports decreased appetite, but denies nausea, vomiting, melena, hematochezia, hematemesis. She has been experiencing diarrhea for the last several days. The family denies any overt abdominal pain. Patient does not appear to be in any acute distress. The patient has dementia, and all history is taken from the family as well as nursing staff and medical record. Past Medical History Cardiac Medical History: Reports: Hyperlipidema, Hypertension Pulmonary Medical History: Denies: Asthma, Chronic Obstructive Pulmonary Disease (COPD) Neurological Medical History: Reports: Seizures Denies: Hemorrhagic CVA, Ischemic CVA Endocrine Medical History: Denies: Diabetes Mellitus Type 2 Renal/ Medical History: Denies: Chronic Kidney Disease, Nephrolithiasis Malignancy Medical History: Reports: None GI Medical History: Reports: Gastroesophageal Reflux Disease Denies: Cirrhosis, Peptic Ulcer Disease Musculoskeltal Medical History: Reports: Arthritis Psychiatric Medical History: Reports: Dementia, Depression Denies: Alcohol Dependency, Substance Abuse, Tobacco Dependency Traumatic Medical History: Reports: None Hematology: Reports: None Infectious Medical History: Reports: Clostridium Difficile - She has had C. difficile years ago. Most recent test (last week) was negat Past Surgical History Past Surgical History: Reports: None Social History Lives with: Family - She lives with her son. Smoking Status: Never Smoker Electronic Cigarette use?: No Frequency of Alcohol Use: None Hx Recreational Drug Use: No Drugs: None Hx Prescription Drug Abuse: No - Advance Directive Resuscitation Status: Do Not Resuscitate Family History Family History: Reviewed & Not Pertinent, CVA Parental Family History Reviewed: Yes Children Family History Reviewed: Yes Sibling(s) Family History Reviewed.: Yes Medication/Allergy Home Medications: Amlodipine Besylate [Norvasc 2.5 mg Tablet] 2.5 mg PO Q12 03/23/18 Atorvastatin Calcium [Lipitor 40 mg Tablet] 40 mg PO DAILY 03/23/18 Donepezil HCl [Aricept] 10 mg PO DAILY 03/23/18 Lamotrigine [Lamictal] 150 mg PO Q12 03/23/18 Loratadine [Claritin 10 mg Tablet] 10 mg PO DAILY 03/23/18 Memantine HCl [Namenda] 5 mg PO DAILY 03/23/18 Potassium Chloride [Kaon-Cl 20 Meq/15 ml Udcup] 7.5 ml PO DAILY 03/23/18 Cephalexin Monohydrate [Keflex 500 mg Capsule] 500 mg PO BID #14 capsule 03/28/18 Cephalexin Monohydrate [Keflex 500 mg Capsule] 500 mg PO Q6H #28 capsule 06/06/18 Levofloxacin [Levaquin 500 mg Tablet] 500 mg PO DAILY #7 tablet 12/06/18 Allergies/Adverse Reactions: No Known Allergies Allergy (Verified 06/06/18 11:37) Review of Systems Constitutional: PRESENT: anorexia, fatigue, other - Lethargy Eyes: ABSENT: visual disturbances Ears: ABSENT: hearing changes Nose, Mouth, and Throat: ABSENT: sore throat Cardiovascular: ABSENT: chest pain Respiratory: ABSENT: cough Gastrointestinal: PRESENT: bloating, diarrhea. ABSENT: abdominal pain, hematemesis, hematochezia, melena, nausea, vomiting Genitourinary: ABSENT: hematuria Musculoskeletal: ABSENT: back pain Integumentary: ABSENT: pruritus, rash Neurological: PRESENT: confusion, memory loss Psychiatric: ABSENT: anxiety Endocrine: ABSENT: cold intolerance, heat intolerance Hematologic/Lymphatic: ABSENT: easy bleeding, easy bruising Physical Exam Vital Signs: Temp Pulse Resp BP Pulse Ox 97.5 F 96 20 180/97 H 97 09/30/19 23:56 09/30/19 23:56 09/30/19 23:56 09/30/19 23:56 09/30/19 23:56 Intake & Output 09/29/19 09/30/19 10/01/19 06:59 06:59 06:59 Intake Total 1500 Balance 1500 Weight 58.8 kg General appearance: PRESENT: no acute distress Head exam: PRESENT: atraumatic, normocephalic Eye exam: ABSENT: scleral icterus Mouth exam: PRESENT: moist, neck supple Neck exam: ABSENT: tenderness, thyromegaly, tracheal deviation, tracheostomy Respiratory exam: PRESENT: unlabored. ABSENT: chest wall tenderness, tachypnea Cardiovascular exam: ABSENT: tachycardia Pulses: PRESENT: normal radial pulses Vascular exam: PRESENT: normal capillary refill GI/Abdominal exam: PRESENT: distended - Mild, soft. ABSENT: guarding, rebound, rigid, tenderness Rectal exam: PRESENT: deferred Extremities exam: ABSENT: clubbing Musculoskeletal exam: ABSENT: deformity Neurological exam: ABSENT: alert Psychiatric exam: ABSENT: agitated Skin exam: ABSENT: cyanosis, erythema, jaundice Results Laboratory Results: 10/01/19 04:40 10/01/19 04:40 09/30/19 09/30/19 09/30/19 11:07 11:07 15:10 WBC 6.9 RBC 5.45 H Hgb 15.3 Hct 47.3 H MCV 87 MCH 28.1 MCHC 32.4 RDW 13.6 Plt Count 287 Seg Neutrophils % 50.2 Sodium 146.2 H Potassium 3.1 L Chloride 103 Carbon Dioxide 34 H Anion Gap 9 BUN 9 Creatinine 0.43 L Est GFR ( Amer) > 60 Glucose 98 Calcium 9.8 Magnesium Total Bilirubin 0.8 AST 31 Alkaline Phosphatase 137 H Total Protein 7.1 Albumin 4.0 Urine Color Cancelled Urine Appearance Cancelled Urine pH Cancelled Ur Specific [place] Cancelled Urine Protein Cancelled Urine Glucose (UA) Cancelled Urine Ketones Cancelled Urine Blood Cancelled Urine Nitrite Cancelled Ur Leukocyte Esterase Cancelled Urine WBC (Auto) Cancelled Urine RBC (Auto) Cancelled 09/30/19 10/01/19 10/01/19 18:53 04:40 04:40 WBC 7.7 RBC 4.86 Hgb 13.7 Hct 41.8 MCV 86 MCH 28.2 MCHC 32.8 RDW 13.6 Plt Count 227 Seg Neutrophils % 62.3 Sodium 143.6 Potassium 2.6 L* Chloride 104 Carbon Dioxide 33 H Anion Gap 7 BUN 4 L Creatinine 0.32 L Est GFR ( Amer) > 60 Glucose 128 H Calcium 8.9 Magnesium 1.7 Total Bilirubin AST Alkaline Phosphatase Total Protein Albumin Urine Color STRAW Urine Appearance CLEAR Urine pH 7.0 Ur Specific [place] 1.009 Urine Protein NEGATIVE Urine Glucose (UA) NEGATIVE Urine Ketones 20 H Urine Blood SMALL H Urine Nitrite NEGATIVE Ur Leukocyte Esterase NEGATIVE Urine WBC (Auto) 2 Urine RBC (Auto) 4 Impressions: KUB X-Ray 09/30/19 00:00 IMPRESSION: NG tube is been withdrawn and now projects over the mid esophagus. It remains folded on itself. Acute Abdomen Series 09/30/19 14:48 IMPRESSION: Dilated gas-filled loop of small bowel within the central abdomen compatible small bowel obstruction. Gas is however present distally throughout the colon. Abdomen/Pelvis CT 09/30/19 18:28 IMPRESSION: 1. Stones or sludge in the gallbladder. 2. Abnormal appearance of the colon which is distended and contains air and fluid. However, there is no inflammation or obstruction. The small bowel is of normal caliber and is completely decompressed. Assessment & Plan - Diagnosis (1) Abdominal distention Is this a current diagnosis for this admission?: Yes - Plan Summary Plan Summary: This is an 83-year-old female with complaints of abdominal distention and diarrhea. Her x-rays were suggestive of dilation of small and large bowel. I have reviewed her CT scan. There is air and contrast within the right colon, ruling out small bowel obstruction. The patient does have dilation of her right colon, as well as portions of the sigmoid colon and rectum. This may be related to ileus, caused by her urinary tract infection. It also could be a normal variant, considering her age and comorbidities. At this time, I do not see any obvious need for surgical intervention. The patient does not have an acute abdomen. We will continue to follow the patient closely with you. Continue with treatment for her urinary tract infection and other comorbidities.
--- NOTE | 2019-10-01 06:47 | Progress Note ---
Provider Note Provider Note: Critical care note: 10/01/2019 Critical care start time: 06:23 Critical care issue: Hypokalemia The patient's nurse called me to evaluate the patient severe hypokalemia with a critical value of 2.5 returned on morning lab. I assessed the patient and found her gross evaluation unchanged from her evaluation the previous evening performed by Dr. Chatterjee. Patient has severe dementia and as such her findings could not be discussed directly with her. I discussed her findings and potential treatment options at length with the patient's nurse. It was determined that the best course would be to provide her with both ongoing IV fluids containing an increased amount of potassium and a K rider series to provide increased potassium immediately to correct this severe potassium deficit. Therefore the patient's IV fluids were changed to D5 half-normal saline with 40 mEq of KCl per liter running at 125 mL/h. In addition two 20 mEq potassium chloride K riders were ordered to be administered concurrently at 5 mEq/h over the next 8 hours. A repeat basic metabolic profile was ordered for 5 PM. Critical care end time: 06:46 Total critical care time: 19 minutes
[2019-10-01] MEDS ORDERED: POTASSI CL 20 MEQ/50 ML RIDER 20 MEQ/50 ML RTUPB IV SCH ×2 (07:00→16:00)
[2019-10-01] MEDS: PANTOPRAZOLE SODIUM 40 MG VIAL IV SCH (09:31)
--- NOTE | 2019-10-01 10:56 | PDOC PROGRESS REPORT ---
Subjective Progress Note for:: 10/01/19 Reason For Visit: SMALL BOWEL OBSTRUCTION, HYPERTENSION, SEVERE Patient nonverbal; scant drainage out of the nasogastric tube Physical Exam Vital Signs: Temp Pulse Resp BP Pulse Ox 97.7 F 70 19 169/85 H 96 10/01/19 08:00 10/01/19 08:00 10/01/19 08:00 10/01/19 08:00 10/01/19 08:00 Intake & Output 09/30/19 10/01/19 10/02/19 06:59 06:59 06:59 Intake Total 1500 Balance 1500 Weight 58.8 kg General appearance: PRESENT: other - Patient is a slumped over in bed, eyes partially open; essentially noncommunicative GI/Abdominal exam: PRESENT: other - Movement examined, slightly Rashard no peritoneal signs no rigidity. Results Laboratory Results: 10/01/19 04:40 10/01/19 04:40 09/30/19 09/30/19 09/30/19 11:07 11:07 15:10 WBC 6.9 RBC 5.45 H Hgb 15.3 Hct 47.3 H MCV 87 MCH 28.1 MCHC 32.4 RDW 13.6 Plt Count 287 Seg Neutrophils % 50.2 Sodium 146.2 H Potassium 3.1 L Chloride 103 Carbon Dioxide 34 H Anion Gap 9 BUN 9 Creatinine 0.43 L Est GFR ( Amer) > 60 Glucose 98 Calcium 9.8 Magnesium Total Bilirubin 0.8 AST 31 Alkaline Phosphatase 137 H Total Protein 7.1 Albumin 4.0 Urine Color Cancelled Urine Appearance Cancelled Urine pH Cancelled Ur Specific [place] Cancelled Urine Protein Cancelled Urine Glucose (UA) Cancelled Urine Ketones Cancelled Urine Blood Cancelled Urine Nitrite Cancelled Ur Leukocyte Esterase Cancelled Urine WBC (Auto) Cancelled Urine RBC (Auto) Cancelled 09/30/19 10/01/19 10/01/19 18:53 04:40 04:40 WBC 7.7 RBC 4.86 Hgb 13.7 Hct 41.8 MCV 86 MCH 28.2 MCHC 32.8 RDW 13.6 Plt Count 227 Seg Neutrophils % 62.3 Sodium 143.6 Potassium 2.6 L* Chloride 104 Carbon Dioxide 33 H Anion Gap 7 BUN 4 L Creatinine 0.32 L Est GFR ( Amer) > 60 Glucose 128 H Calcium 8.9 Magnesium 1.7 Total Bilirubin AST Alkaline Phosphatase Total Protein Albumin Urine Color STRAW Urine Appearance CLEAR Urine pH 7.0 Ur Specific [place] 1.009 Urine Protein NEGATIVE Urine Glucose (UA) NEGATIVE Urine Ketones 20 H Urine Blood SMALL H Urine Nitrite NEGATIVE Ur Leukocyte Esterase NEGATIVE Urine WBC (Auto) 2 Urine RBC (Auto) 4 Impressions: KUB X-Ray 09/30/19 00:00 IMPRESSION: NG tube is been withdrawn and now projects over the mid esophagus. It remains folded on itself. Acute Abdomen Series 09/30/19 14:48 IMPRESSION: Dilated gas-filled loop of small bowel within the central abdomen compatible small bowel obstruction. Gas is however present distally throughout the colon. Abdomen/Pelvis CT 09/30/19 18:28 IMPRESSION: 1. Stones or sludge in the gallbladder. 2. Abnormal appearance of the colon which is distended and contains air and fluid. However, there is no inflammation or obstruction. The small bowel is of normal caliber and is completely decompressed. Assessment & Plan - Diagnosis (1) Abdominal distention Is this a current diagnosis for this admission?: Yes Plan: Impression: Bowel obstruction, likely colonic, and immobile, 83-year-old demented female: Hypokalemia Recommendations: 1. Correct electrolyte abnormalities; IV fluids and continue nasogastric decompression 2. Patient may benefit from enema; will order. - Time Time Spent with patient: 15-24 minutes Smoking Cessation Education: 3 to 10 minutes Medications reviewed and adjusted accordingly: Yes Anticipated discharge: Home
[2019-10-01] MEDS: LACOSAMIDE INJ/PF 200 MG/20 ML SDV IV SCH ×2 (11:23→21:32)
--- NOTE | 2019-10-01 13:03 | RADIOLOGY REPORT (SQ) ---
EXAM DESCRIPTION: KUB/ABDOMEN (SINGLE VIEW) COMPLETED DATE/TIME: 10/01/2019 12:31 pm REASON FOR STUDY: colonic distention COMPARISON: 09/30/2019 NUMBER OF VIEWS: One view. TECHNIQUE: Supine radiographic image of the abdomen acquired. LIMITATIONS: None. FINDINGS: BOWEL GAS PATTERN: NG tube remains in place. There is contrast in the ascending colon. T here is less small-bowel distention. Un opacified loop of large bowel overlying the right lower quad rant is consistent with redundant sigmoid colon demonstrated on recent CT. CALCIFICATIONS: No suspicious calcifications. SOFT TISSUES: No gross mass or suggestion of organomegaly. HARDWARE: None in the abdomen. BONES: No acute fracture. No worrisome bone lesions. OTHER: No other significant finding. IMPRESSION: Persistent mild colonic distention. NG tube remains in place. Based on conventional ra diograph and CT there is a very redundant sigmoid colon which could be prone to volvulus. TECHNICAL DOCUMENTATION: JOB ID: [id number] [employer]- All Rights Reserved Reading location - IP/workstation name: [email or web address]
[2019-10-01] MEDS ORDERED: POTASSI CL 20 MEQ/50 ML RIDER 20 MEQ/50 ML RTUPB IV ONE (14:01)
[2019-10-01] MEDS ORDERED: HYDRALAZINE HCL INJ/PF 20 MG/1 ML SDV IV PRN (14:58)
--- NOTE | 2019-10-01 15:10 | PDOC PROGRESS REPORT ---
Subjective Progress Note for:: 10/01/19 Subjective:: Patient is mute and nonverbal and does not engage in conversation Reason For Visit: SMALL BOWEL OBSTRUCTION, HYPERTENSION, SEVERE Physical Exam Vital Signs: Temp Pulse Resp BP Pulse Ox 98.3 F 93 18 167/87 H 97 10/01/19 11:07 10/01/19 11:07 10/01/19 11:07 10/01/19 11:07 10/01/19 11:07 Intake & Output 09/30/19 10/01/19 10/02/19 06:59 06:59 06:59 Intake Total 1500 Balance 1500 Weight 58.8 kg 58.8 kg General appearance: PRESENT: no acute distress, cooperative Neck exam: ABSENT: JVD Respiratory exam: PRESENT: clear to auscultation jesus, symmetrical, unlabored. ABSENT: tachypnea, wheezes Cardiovascular exam: PRESENT: +S1, +S2. ABSENT: irregular rhythm, tachycardia GI/Abdominal exam: PRESENT: distended - Mild, normal bowel sounds, soft. ABSENT: guarding, rebound, rigid, tenderness Neurological exam: PRESENT: awake, other - Patient is nonverbal. ABSENT: oriented to person, oriented to place, oriented to time, oriented to situation Results Laboratory Results: 10/01/19 04:40 10/01/19 04:40 09/30/19 09/30/19 10/01/19 15:10 18:53 04:40 WBC RBC Hgb Hct MCV MCH MCHC RDW Plt Count Seg Neutrophils % Sodium 143.6 Potassium 2.6 L* Chloride 104 Carbon Dioxide 33 H Anion Gap 7 BUN 4 L Creatinine 0.32 L Est GFR ( Amer) > 60 Glucose 128 H Calcium 8.9 Magnesium 1.7 Urine Color Cancelled STRAW Urine Appearance Cancelled CLEAR Urine pH Cancelled 7.0 Ur Specific [place] Cancelled 1.009 Urine Protein Cancelled NEGATIVE Urine Glucose (UA) Cancelled NEGATIVE Urine Ketones Cancelled 20 H Urine Blood Cancelled SMALL H Urine Nitrite Cancelled NEGATIVE Ur Leukocyte Esterase Cancelled NEGATIVE Urine WBC (Auto) Cancelled 2 Urine RBC (Auto) Cancelled 4 10/01/19 04:40 WBC 7.7 RBC 4.86 Hgb 13.7 Hct 41.8 MCV 86 MCH 28.2 MCHC 32.8 RDW 13.6 Plt Count 227 Seg Neutrophils % 62.3 Sodium Potassium Chloride Carbon Dioxide Anion Gap BUN Creatinine Est GFR ( Amer) Glucose Calcium Magnesium Urine Color Urine Appearance Urine pH Ur Specific [place] Urine Protein Urine Glucose (UA) Urine Ketones Urine Blood Urine Nitrite Ur Leukocyte Esterase Urine WBC (Auto) Urine RBC (Auto) Impressions: Acute Abdomen Series 09/30/19 14:48 IMPRESSION: Dilated gas-filled loop of small bowel within the central abdomen compatible small bowel obstruction. Gas is however present distally throughout the colon. Abdomen/Pelvis CT 09/30/19 18:28 IMPRESSION: 1. Stones or sludge in the gallbladder. 2. Abnormal appearance of the colon which is distended and contains air and fluid. However, there is no inflammation or obstruction. The small bowel is of normal caliber and is completely decompressed. KUB X-Ray 10/01/19 12:00 IMPRESSION: Persistent mild colonic distention. NG tube remains in place. Based on conventional radiograph and CT there is a very redundant sigmoid colon which could be prone to volvulus. Assessment and Plan - Diagnosis (1) Partial small bowel obstruction Is this a current diagnosis for this admission?: Yes Plan: Small bowel obstruction noted on initial KUB NG tube in place suctioning Repeat imaging with CT abdomen pelvis showed no clear evidence of obstruction though this may have been impacted after NG tube was placed. Surgery following Continue IV fluids and electrolyte repletion's (2) Hypokalemia Is this a current diagnosis for this admission?: Yes Plan: Potassium 2.5 this morning. Likely secondary to loss of gastric fluids through NG tube suctioning. Aggressive IV potassium repletions and recheck BMP later today. (3) Hypertension Qualifiers: Hypertension type: essential hypertension Qualified Code(s): I10 - Essential (primary) hypertension Is this a current diagnosis for this admission?: Yes Plan: We will hold her amlodipine at this time. She will have intravenous medication available for tachycardia and or hypertension. Resume medications when the obstruction is resolved. 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 We will hold these medications until she is able to take medications and nutrition by mouth. (5) Hyperlipidemia Qualifiers: Hyperlipidemia type: unspecified Qualified Code(s): E78.5 - Hyperlipidemia, unspecified Is this a current diagnosis for this admission?: Yes Plan: Hold atorvastatin at this time. Resume when obstruction is resolved. (6) Hypernatremia Is this a current diagnosis for this admission?: Yes Plan: Possible mild dehydration. Currently resolved with IV fluids. (7) Seizure disorder Is this a current diagnosis for this admission?: Yes Plan: We will continue her lacosamide and give it through her intravenous. - Plan Summary Summary: Plan discussed with patient's son via phone. - Time Time Spent with patient: 15-24 minutes
[2019-10-01] MEDS: ENALAPRILAT DIHYDRATE INJ/PF 2.5 MG/2 ML SDV IV SCH (17:49)
[2019-10-01] MEDS ORDERED: POTASSIUM CHLORIDE 20 MEQ/50 ML RTU IV ONE (20:00)
[2019-10-02] MEDS: POTASSI CL 40 MEQ/D5-1/2NS 1L 40 MEQ/1,000 ML RTUINJ IV PRN ×2 (02:05→18:29)
[2019-10-02] MEDS: HEPARIN SOD (PORCINE) 5,000 UNIT/ML 1 ML VIAL SUBCUT SCH ×3 (06:19→21:44)
[2019-10-02 08:00] LABS: ANION GAP 5 (5-19); CALCIUM 8.7 mg/dL (8.4-10.2); CARBON DIOXIDE 28 mmol/L (22-30); CHLORIDE 108 mmol/L (98-107); GLUCOSE 111 mg/dL (75-110); POTASSIUM 3.3 mmol/L (3.6-5.0)
[2019-10-02 08:04] LABS: BLOOD UREA NITROGEN < 2 mg/dL (7-20)
--- NOTE | 2019-10-02 10:02 | PDOC PROGRESS REPORT ---
Subjective Progress Note for:: 10/02/19 Subjective:: Patient does not respond to commands. No apparent distress. Patient has been having bowel movements. No further emesis. NG tube was removed yesterday. Reason For Visit: SMALL BOWEL OBSTRUCTION, HYPERTENSION, SEVERE Physical Exam Vital Signs: Temp Pulse Resp BP Pulse Ox 99.0 F 81 14 147/83 H 92 10/02/19 07:29 10/02/19 07:29 10/02/19 07:29 10/02/19 07:29 10/02/19 07:29 Intake & Output 10/01/19 10/02/19 10/03/19 06:59 06:59 06:59 Intake Total 1500 2150 Balance 1500 2150 Weight 58.8 kg 49.3 kg General appearance: PRESENT: no acute distress Respiratory exam: PRESENT: clear to auscultation jesus Cardiovascular exam: PRESENT: RRR GI/Abdominal exam: PRESENT: other - Soft, nondistended, no apparent tenderness, active bowel sounds. Results Laboratory Results: 10/01/19 04:40 10/02/19 06:56 10/02/19 10/02/19 02:19 06:56 Sodium 141.4 Potassium 3.7 D 3.3 L Chloride 108 H Carbon Dioxide 28 Anion Gap 5 BUN < 2 L Creatinine 0.34 L Est GFR ( Amer) > 60 Glucose 111 H Calcium 8.7 Magnesium 1.5 L Impressions: Acute Abdomen Series 09/30/19 14:48 IMPRESSION: Dilated gas-filled loop of small bowel within the central abdomen compatible small bowel obstruction. Gas is however present distally throughout the colon. Abdomen/Pelvis CT 09/30/19 18:28 IMPRESSION: 1. Stones or sludge in the gallbladder. 2. Abnormal appearance of the colon which is distended and contains air and fluid. However, there is no inflammation or obstruction. The small bowel is of normal caliber and is completely decompressed. KUB X-Ray 10/01/19 12:00 IMPRESSION: Persistent mild colonic distention. NG tube remains in place. Based on conventional radiograph and CT there is a very redundant sigmoid colon which could be prone to volvulus. Assessment & Plan - Diagnosis (1) Constipation Is this a current diagnosis for this admission?: Yes Plan: Appears to have responded well with conservative measures. I do not see any ro le for surgical intervention. Will defer to medicine as far as her diet. If she is not a aspiration risk due to her mental status, may start a diet. Surgery service signing off. Please call us for any questions. - Time Time Spent with patient: Less than 15 minutes
[2019-10-02] MEDS: PANTOPRAZOLE SODIUM 40 MG VIAL IV SCH (10:22)
[2019-10-02] MEDS: ENALAPRILAT DIHYDRATE INJ/PF 2.5 MG/2 ML SDV IV SCH ×2 (10:22→20:41)
[2019-10-02] MEDS: LACOSAMIDE INJ/PF 200 MG/20 ML SDV IV SCH ×2 (10:23→23:17)
[2019-10-02] MEDS: MAGNESIUM SULFATE/D5W 1 GM/100 ML RTUPB IV SCH ×2 (10:24→11:00)
[2019-10-02] MEDS: POTASSI CL 20 MEQ/50 ML RIDER 20 MEQ/50 ML RTUPB IV SCH ×2 (13:30→14:31)
--- NOTE | 2019-10-02 15:26 | PDOC PROGRESS REPORT ---
Subjective Progress Note for:: 10/02/19 Subjective:: Her prolonged conversation with patient's 2 sons Clinton and Magen regarding patient's overall condition. Patient small bowel structure seems to have resolved. Patient is nonverbal and does not give much history. According to son's, patient has been nonverbal for very long time now several years and she has had significant decline in the recent years. Patient also not eating much. Had a long conversation about comfort care I will get palliative care to also fo llow-up. Patient son notifies me that patient has some difficulty swallowing as well. Reason For Visit: SMALL BOWEL OBSTRUCTION, HYPERTENSION, SEVERE Physical Exam Vital Signs: Temp Pulse Resp BP Pulse Ox 98.9 F 80 16 165/85 H 97 10/02/19 11:35 10/02/19 11:35 10/02/19 11:35 10/02/19 11:35 10/02/19 11:35 Intake & Output 10/01/19 10/02/19 10/03/19 06:59 06:59 06:59 Intake Total 1500 2150 1100 Balance 1500 2150 1100 Weight 58.8 kg 49.3 kg General appearance: PRESENT: no acute distress, cooperative Neck exam: ABSENT: JVD Respiratory exam: PRESENT: clear to auscultation jesus, unlabored. ABSENT: tachypnea, wheezes Cardiovascular exam: PRESENT: RRR, +S1, +S2. ABSENT: tachycardia GI/Abdominal exam: PRESENT: normal bowel sounds, soft. ABSENT: distended, rebound, rigid, tenderness Neurological exam: PRESENT: altered, awake, other - Nonverbal. ABSENT: alert, oriented to person, oriented to place, oriented to time, oriented to situation Psychiatric exam: ABSENT: agitated, anxious Results Laboratory Results: 10/01/19 04:40 10/02/19 06:56 10/02/19 10/02/19 02:19 06:56 Sodium 141.4 Potassium 3.7 D 3.3 L Chloride 108 H Carbon Dioxide 28 Anion Gap 5 BUN < 2 L Creatinine 0.34 L Est GFR ( Amer) > 60 Glucose 111 H Calcium 8.7 Magnesium 1.5 L Impressions: Acute Abdomen Series 09/30/19 14:48 IMPRESSION: Dilated gas-filled loop of small bowel within the central abdomen compatible small bowel obstruction. Gas is however present distally throughout the colon. Abdomen/Pelvis CT 09/30/19 18:28 IMPRESSION: 1. Stones or sludge in the gallbladder. 2. Abnormal appearance of the colon which is distended and contains air and fluid. However, there is no inflammation or obstruction. The small bowel is of normal caliber and is completely decompressed. KUB X-Ray 10/01/19 12:00 IMPRESSION: Persistent mild colonic distention. NG tube remains in place. Based on conventional radiograph and CT there is a very redundant sigmoid colon which could be prone to volvulus. Assessment and Plan - Diagnosis (1) Partial small bowel obstruction Is this a current diagnosis for this admission?: Yes Plan: Small bowel obstruction noted on initial KUB Repeat imaging with CT abdomen pelvis showed no clear evidence of obstruction though this may have been impacted after NG tube was placed. Currently resolved. NG tube discontinued. Patient had bowel movement. (2) Hypokalemia Is this a current diagnosis for this admission?: Yes Plan: Improved. Replete as needed. (3) Hypertension Qualifiers: Hypertension type: essential hypertension Qualified Code(s): I10 - Essential (primary) hypertension Is this a current diagnosis for this admission?: Yes Plan: Resume antihypertensives once swallow evaluation is performed. 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 We will hold these medications until patient has been cleared by speech therapy regarding the slow on the mechanism. Palliative care consult placed. (5) Hyperlipidemia Qualifiers: Hyperlipidemia type: unspecified Qualified Code(s): E78.5 - Hyperlipidemia, unspecified Is this a current diagnosis for this admission?: Yes Plan: Statin (6) Hypernatremia Is this a current diagnosis for this admission?: Yes Plan: Possible mild dehydration. Currently resolved with IV fluids. (7) Seizure disorder Is this a current diagnosis for this admission?: Yes Plan: We will continue her lacosamide and give it through her intravenous. (8) Dysphagia Qualifiers: Dysphagia type: unspecified Qualified Code(s): R13.10 - Dysphagia, unspecified Is this a current diagnosis for this admission?: Yes Plan: Notified by patient's son that patient has been having some dysphagia. I will have speech therapist evaluated patient swallowing mechanism. Anticipate probably some level of dysphagia from advanced dementia. - Time Time Spent with patient: 25-34 minutes
--- NOTE | 2019-10-02 15:33 | ADVANCED CARE ---
- Diagnosis (1) Partial small bowel obstruction Diagnosis Current: Yes (4) Alzheimer's dementia Diagnosis Current: Yes (8) Dysphagia Diagnosis Current: Yes Attendance: Patient has 2 sons Clinton and Magen as well as myself. Resuscitation Status: Do Not Resuscitate Discussion: He had prolonged conversation about patient's advanced dementia. And notified both children that the patient does have end-stage Alzheimer's dementia as evidenced by her nonverbal state as well as decreased p.o. intake. He further went on to discuss the sequelae of events at the stage of dementia and that patient is at very high risk of recurrent infections as well as recurrence of episodes of dehydration. I have prepared them that patient is decline will likely be rapid once she has reached phase especially if she is now experiencing dysphagia limiting her food intake. I have brought up conversation about comfort care and possibly entertaining hospice care upon discharge. He had an elaborate discussion about this including patient's prognosis and patient's risk for the subsequent illnesses. We also discussed patient dysphagia and have planned for speech therapy evaluation. I have discussed that if she turns out to be aspirating, the next stage would be consideration of PEG versus comfort feeds. We will follow-up again after speech therapy evaluation to continue this conversation and in the meantime I will get palliative care on board. Patient sons are reasonable about patient's situation and the also very aware that patient's life expectancy is not long at this stage. They will discuss with their 3 other siblings and we will continue our conversation upon completion of speech therapy swallow evaluation. Time Spent: 35mins
[2019-10-02] MEDS ORDERED: POTASSIUM CHLORIDE 20 MEQ/50 ML RTU IV ONE (18:30)
[2019-10-02] MEDS: DOCUSATE SODIUM 100 MG CAPSULE PO SCH (20:15)
[2019-10-02] MEDS ORDERED: MAGNESIUM SULFATE/D5W 1 GM/100 ML RTUPB IV ONE ×3 (21:00→23:57)
[2019-10-03] MEDS: HEPARIN SOD (PORCINE) 5,000 UNIT/ML 1 ML VIAL SUBCUT SCH ×3 (05:04→21:12)
[2019-10-03] MEDS: POTASSI CL 40 MEQ/D5-1/2NS 1L 40 MEQ/1,000 ML RTUINJ IV PRN (06:45)
[2019-10-03 07:09] LABS: ANION GAP 7 (5-19); BLOOD UREA NITROGEN < 2 mg/dL (7-20); CALCIUM 8.9 mg/dL (8.4-10.2); CARBON DIOXIDE 26 mmol/L (22-30); CHLORIDE 107 mmol/L (98-107); GLUCOSE 99 mg/dL (75-110); POTASSIUM 3.9 mmol/L (3.6-5.0)
[2019-10-03] MEDS ORDERED: ACETAMINOPHEN 325 MG TABLET PO PRN (10:03)
--- NOTE | 2019-10-03 10:14 | PDOC PROGRESS REPORT ---
Subjective Progress Note for:: 10/03/19 Subjective:: Subjective not obtainable. Patient is nonverbal from a dementia. Reason For Visit: SMALL BOWEL OBSTRUCTION, HYPERTENSION, SEVERE Physical Exam Vital Signs: Temp Pulse Resp BP Pulse Ox 98.1 F 97 16 138/76 H 98 10/03/19 08:15 10/03/19 08:15 10/03/19 08:15 10/03/19 08:15 10/03/19 08:15 Intake & Output 10/02/19 10/03/19 10/04/19 06:59 06:59 06:59 Intake Total 2150 2300 Balance 2150 2300 Weight 49.3 kg 49.5 kg General appearance: PRESENT: no acute distress, cooperative Neck exam: ABSENT: JVD Respiratory exam: PRESENT: unlabored. ABSENT: accessory muscle use, retraction, tachypnea Cardiovascular exam: PRESENT: +S1, +S2. ABSENT: irregular rhythm, tachycardia GI/Abdominal exam: PRESENT: soft. ABSENT: rebound, rigid, tenderness Neurological exam: PRESENT: altered, awake, aphasic - Patient is nonverbal. ABSENT: oriented to person, oriented to place, oriented to time, oriented to situation Results Laboratory Results: 10/01/19 04:40 10/03/19 05:55 10/03/19 05:55 Sodium 139.5 Potassium 3.9 Chloride 107 Carbon Dioxide 26 Anion Gap 7 BUN < 2 L Creatinine 0.31 L Est GFR ( Amer) > 60 Glucose 99 Calcium 8.9 Magnesium 2.0 09/30/19 15:10 Catheterized Urine Urine Culture - Final Escherichia Coli Enterococcus Faecalis(Group D) Impressions: Acute Abdomen Series 09/30/19 14:48 IMPRESSION: Dilated gas-filled loop of small bowel within the central abdomen compatible small bowel obstruction. Gas is however present distally throughout the colon. Abdomen/Pelvis CT 09/30/19 18:28 IMPRESSION: 1. Stones or sludge in the gallbladder. 2. Abnormal appearance of the colon which is distended and contains air and fluid. However, there is no inflammation or obstruction. The small bowel is of normal caliber and is completely decompressed. KUB X-Ray 10/01/19 12:00 IMPRESSION: Persistent mild colonic distention. NG tube remains in place. Based on conventional radiograph and CT there is a very redundant sigmoid colon which could be prone to volvulus. Assessment and Plan - Diagnosis (1) Alzheimer's dementia Qualifiers: Alzheimer's disease onset: unspecified onset Dementia behavioral disturbance: with behavioral disturbance Qualified Code(s): G30.9 - Alzheimer's disease, unspecified; F02.81 - Dementia in other diseases classified elsewhere with behavioral disturbance Is this a current diagnosis for this admission?: Yes Plan: Patient has end-stage dementia was characterized by mutism/nonverbal and bedboun d requiring being fed and barely eating Resume Aricept and Namenda. Palliative care consult placed. (2) Partial small bowel obstruction Is this a current diagnosis for this admission?: Yes Plan: Small bowel obstruction noted on initial KUB Repeat imaging with CT abdomen pelvis showed no clear evidence of obstruction though this may have been impacted after NG tube was placed. Currently resolved. NG tube discontinued. Patient is having bowel movements. (3) Hypokalemia Is this a current diagnosis for this admission?: Yes Plan: Resolving. Continue p.o. potassium chloride supplements. (4) Hypertension Qualifiers: Hypertension type: essential hypertension Qualified Code(s): I10 - E ssential (primary) hypertension Is this a current diagnosis for this admission?: Yes Plan: Norvasc resumed. (5) Hyperlipidemia Qualifiers: Hyperlipidemia type: unspecified Qualified Code(s): E78.5 - Hyperlipidemia, unspecified Is this a current diagnosis for this admission?: Yes Plan: Atorvastatin (6) Hypernatremia Is this a current diagnosis for this admission?: Yes Plan: Possible mild dehydration. Currently resolved with IV fluids. IV fluids discontinued at this time. Will monitor but patient is at risk of dehydration from advanced dementia. (7) Seizure disorder Is this a current diagnosis for this admission?: Yes Plan: Continue lacosamide (8) Dysphagia Qualifiers: Dysphagia type: unspecified Qualified Code(s): R13.10 - Dysphagia, unspecified Is this a current diagnosis for this admission?: Yes Plan: Notified by patient's son that patient has been having some dysphagia. Patient evaluated by speech therapist who states that patient does not open her mouth to eat but was able to give some nutrition by using a straw thus significant concern for patient not being able to meet nutritional needs. No aspiration noted with liquids. Recommending pured diet. Dietary consult and supplements. - Time Time Spent with patient: Less than 15 minutes
[2019-10-03] MEDS: MEMANTINE HCL 10 MG TABLET PO SCH (11:58)
[2019-10-03] MEDS: ATORVASTATIN CALCIUM 40 MG TABLET PO SCH (11:58)
[2019-10-03] MEDS: LACOSAMIDE 100 MG TABLET PO SCH ×2 (11:58→21:10)
[2019-10-03] MEDS: POTASSIUM CHLORIDE 20 MEQ PACKET PO SCH (11:58)
[2019-10-03] MEDS: DONEPEZIL HCL 5 MG TABLET PO SCH (11:58)
[2019-10-03] MEDS: PANTOPRAZOLE SODIUM 40 MG VIAL IV SCH (11:59)
[2019-10-03] MEDS: ASPIRIN 81 MG TABLET, ENT COATED PO SCH (12:28)
[2019-10-03] MEDS: DOCUSATE SODIUM 100 MG CAPSULE PO SCH ×2 (12:29→18:02)
[2019-10-03] MEDS: AMLODIPINE BESYLATE 2.5 MG TABLET PO SCH ×2 (12:34→21:10)
[2019-10-04] MEDS: HEPARIN SOD (PORCINE) 5,000 UNIT/ML 1 ML VIAL SUBCUT SCH ×3 (05:13→21:31)
[2019-10-04 05:34] LABS: ANION GAP 8 (5-19); BLOOD UREA NITROGEN 3 mg/dL (7-20); CALCIUM 8.9 mg/dL (8.4-10.2); CARBON DIOXIDE 24 mmol/L (22-30); CHLORIDE 107 mmol/L (98-107); GLUCOSE 97 mg/dL (75-110); POTASSIUM 3.7 mmol/L (3.6-5.0)
[2019-10-04] MEDS: DOCUSATE SODIUM 100 MG CAPSULE PO SCH ×2 (09:56→17:16)
[2019-10-04] MEDS: ASPIRIN 81 MG TABLET, ENT COATED PO SCH (09:57)
[2019-10-04] MEDS ORDERED: AMLODIPINE BESYLATE 2.5 MG TABLET PO SCH (10:00)
[2019-10-04] MEDS: POTASSIUM CHLORIDE 20 MEQ PACKET PO SCH (10:32)
[2019-10-04] MEDS: MEMANTINE HCL 10 MG TABLET PO SCH (10:32)
[2019-10-04] MEDS: AMLODIPINE BESYLATE 5 MG TABLET PO SCH ×2 (10:32→21:31)
[2019-10-04] MEDS: PANTOPRAZOLE SODIUM 40 MG VIAL IV SCH (10:32)
[2019-10-04] MEDS: LACOSAMIDE 100 MG TABLET PO SCH ×2 (10:32→21:31)
[2019-10-04] MEDS: DONEPEZIL HCL 5 MG TABLET PO SCH (10:32)
[2019-10-04] MEDS: ATORVASTATIN CALCIUM 40 MG TABLET PO SCH (10:32)
[2019-10-04] MEDS ORDERED: CLONIDINE HCL 0.1 MG TABLET PO ONE (12:04)
--- NOTE | 2019-10-04 14:18 | PDOC PROGRESS REPORT ---
Subjective Progress Note for:: 10/04/19 Subjective:: I discussed patient's condition with patient's 3 sons including Magen who is the primary decision maker for patient. We discussed the fact that on evaluation by speech pathologist yesterday patient barely open mouth to receive meals though was able to suck some fluids from a straw. Monitoring her clinical panel and in discussion with staff, patient's nutritional intake is very poor and she is not able to sustain her nutritional requirements. This puts her at high risk for dehydration and several other things. This is all secondary to her end-stage dementia and have discussed this with family. Patient son Magen initially opting for comfort care and to go with hospice but upon further discussion with rest of his brothers, he prefers to first try to get a feeding tube for patient to help improve her nutritional status. He is still open to further coord ination with palliative care and potentially starting hospice at home. Does not want any overtly aggressive measures with patient but would like to proceed with a feeding tube. Reason For Visit: SMALL BOWEL OBSTRUCTION, HYPERTENSION, SEVERE Physical Exam Vital Signs: Temp Pulse Resp BP Pulse Ox 97.4 F 100 19 187/103 H 96 10/04/19 08:00 10/04/19 08:00 10/04/19 08:00 10/04/19 08:00 10/04/19 08:00 Intake & Output 10/03/19 10/04/19 10/05/19 06:59 06:59 06:59 Intake Total 2300 0 30 Balance 2300 0 30 Weight 49.5 kg 49.2 kg 49.2 kg General appearance: PRESENT: no acute distress Neck exam: ABSENT: JVD Respiratory exam: PRESENT: symmetrical, unlabored. ABSENT: tachypnea, wheezes Cardiovascular exam: PRESENT: RRR, +S1, +S2. ABSENT: tachycardia GI/Abdominal exam: PRESENT: normal bowel sounds, soft. ABSENT: rebound, rigid, tenderness Neurological exam: PRESENT: altered, awake, aphasic, other - Nonverbal at base line. ABSENT: alert, oriented to person, oriented to place, oriented to time, oriented to situation Results Laboratory Results: 10/01/19 04:40 10/04/19 03:57 10/04/19 03:57 Sodium 138.8 Potassium 3.7 Chloride 107 Carbon Dioxide 24 Anion Gap 8 BUN 3 L Creatinine 0.34 L Est GFR ( Amer) > 60 Glucose 97 Calcium 8.9 Magnesium 1.9 10/01/19 15:00 Stool - Stool - Final Impressions: Acute Abdomen Series 09/30/19 14:48 IMPRESSION: Dilated gas-filled loop of small bowel within the central abdomen compatible small bowel obstruction. Gas is however present distally throughout the colon. Abdomen/Pelvis CT 09/30/19 18:28 IMPRESSION: 1. Stones or sludge in the gallbladder. 2. Abnormal appearance of the colon which is distended and contains air and fluid. However, there is no inflammation or obstruction. The small bowel is of normal caliber and is completely decompressed. KUB X-Ray 10/01/19 12:00 IMPRESSION: Persistent mild colonic distention. NG tube remains in place. Based on conventional radiograph and CT there is a very redundant sigmoid colon which could be prone to volvulus. Assessment and Plan - Diagnosis (1) Very poor nutrition Is this a current diagnosis for this admission?: Yes Plan: Patient has very poor nutritional intake and barely eats. On assessment by speech pathologist patient barely even opened her mouth to accept food intake and was unable to take a few sips via straw. Clinical panels also indicating the patient's only eats bites and a very small percentage of her meals This is not unusual for patient at her baseline and this is an expected progression of end-stage dementia leaving patient at high risk for dehydration. Family having discussions with palliative care and myself regarding potentially pursuing comfort care. Currently however opting for PEG tube placement which have consulted surgery. We will also continue palliative care discussions. (2) Alzheimer's dementia Qualifiers: Alzheimer's disease onset: unspecified onset Dementia behavioral disturbance: with behavioral disturbance Qualified Code(s): G30.9 - Alzheimer's disease, unspecified; F02.81 - Dementia in other diseases classified elsewhere with behavioral disturbance Is this a current diagnosis for this admission?: Yes Plan: Patient has end-stage dementia was characterized by mutism/nonverbal and bedboun d and barely eating Aricept and Namenda. Palliative care consult placed. (3) Partial small bowel obstruction Is this a current diagnosis for this admission?: Yes Plan: resolved (4) Hypokalemia Is this a current diagnosis for this admission?: Yes Plan: Resolved. Continue daily supplements. (5) Hypertension Qualifiers: Hypertension type: essential hypertension Qualified Code(s): I10 - E ssential (primary) hypertension Is this a current diagnosis for this admission?: Yes Plan: Norvasc resumed. Dose increased today. (6) Hyperlipidemia Qualifiers: Hyperlipidemia type: unspecified Qualified Code(s): E78.5 - Hyperlipidemia, unspecified Is this a current diagnosis for this admission?: Yes (7) Hypernatremia Is this a current diagnosis for this admission?: Yes (8) Seizure disorder Is this a current diagnosis for this admission?: Yes (9) Dysphagia Qualifiers: Dysphagia type: unspecified Qualified Code(s): R13.10 - Dysphagia, unspecified Is this a current diagnosis for this admission?: Yes - Time Time Spent with patient: 35 or more minutes
--- NOTE | 2019-10-04 14:47 | PDOC CONSULTATION ---
Consultation Consult Date: 10/04/19 Provider Consulted: KE MELTON History of Present Illness Admission Date/PCP: 09/30/19 19:08 MEEK POMPA MD History of Present Illness: COREEN GREEN is a 83 year old female with advanced dementia with extremely poor p.o. intake. Family is requesting a percutaneous endoscopic gastrostomy tube placement. Patient had possible obstructive signs initially during hospitalization however the signs have resolved with patient having bowel movements and no emesis. However her p.o. intake continues to remain very poor. Past Medical History Cardiac Medical History: Reports: Hyperlipidema, Hypertension Pulmonary Medical History: Denies: Asthma, Chronic Obstructive Pulmonary Disease (COPD) Neurological Medical History: Reports: Seizures Denies: Hemorrhagic CVA, Ischemic CVA Endocrine Medical History: Denies: Diabetes Mellitus Type 2 Renal/ Medical History: Denies: Chronic Kidney Disease, Nephrolithiasis Malignancy Medical History: Reports: None GI Medical History: Reports: Gastroesophageal Reflux Disease Denies: Cirrhosis, Peptic Ulcer Disease Musculoskeltal Medical History: Reports: Arthritis Psychiatric Medical History: Reports: Dementia, Depression Denies: Alcohol Dependency, Substance Abuse, Tobacco Dependency Traumatic Medical History: Reports: None Hematology: Reports: None Infectious Medical History: Reports: Clostridium Difficile - She has had C. difficile years ago. Most recent test (last week) was negat Past Surgical History Past Surgical History: Reports: None Social History Lives with: Family - She lives with her son. Smoking Status: Never Smoker Electronic Cigarette use?: No Frequency of Alcohol Use: None Hx Recreational Drug Use: No Drugs: None Hx Prescription Drug Abuse: No - Advance Directive Resuscitation Status: Do Not Resuscitate Family History Family History: Reviewed & Not Pertinent, CVA Parental Family History Reviewed: No Children Family History Reviewed: No Sibling(s) Family History Reviewed.: No Medication/Allergy Home Medications: Amlodipine Besylate [Norvasc 2.5 mg Tablet] 2.5 mg PO Q12 10/01/19 Aspirin [Ecotrin 81 mg EC Tablet] 81 mg PO DAILY 10/01/19 Atorvastatin Calcium [Lipitor 40 mg Tablet] 40 mg PO DAILY 10/01/19 Donepezil HCl [Aricept] 10 mg PO DAILY 10/01/19 Lacosamide [Vimpat] 150 mg PO Q12 10/01/19 Memantine HCl [Namenda] 5 mg PO DAILY 10/01/19 Omeprazole 40 mg PO BID 10/01/19 Potassium Chloride 7.5 ml PO DAILY 10/01/19 Allergies/Adverse Reactions: No Known Allergies Allergy (Verified 06/06/18 11:37) Physical Exam Vital Signs: Temp Pulse Resp BP Pulse Ox 97.4 F 100 19 187/103 H 96 10/04/19 08:00 10/04/19 08:00 10/04/19 08:00 10/04/19 08:00 10/04/19 08:00 Intake & Output 10/03/19 10/04/19 10/05/19 06:59 06:59 06:59 Intake Total 2300 0 30 Balance 2300 0 30 Weight 49.5 kg 49.2 kg 49.2 kg General appearance: PRESENT: no acute distress, other - Patient does not interact and she does not follow commands. Respiratory exam: PRESENT: clear to auscultation jesus Cardiovascular exam: PRESENT: RRR GI/Abdominal exam: PRESENT: other - Soft, nondistended, no apparent tenderness. No upper abdominal scars. Results Laboratory Results: 10/01/19 04:40 10/04/19 03:57 10/04/19 03:57 Sodium 138.8 Potassium 3.7 Chloride 107 Carbon Dioxide 24 Anion Gap 8 BUN 3 L Creatinine 0.34 L Est GFR ( Amer) > 60 Glucose 97 Calcium 8.9 Magnesium 1.9 10/01/19 15:00 Stool - Stool - Final Impressions: Acute Abdomen Series 09/30/19 14:48 IMPRESSION: Dilated gas-filled loop of small bowel within the central abdomen compatible small bowel obstruction. Gas is however present distally throughout the colon. Abdomen/Pelvis CT 09/30/19 18:28 IMPRESSION: 1. Stones or sludge in the gallbladder. 2. Abnormal appearance of the colon which is distended and contains air and fluid. However, there is no inflammation or obstruction. The small bowel is of normal caliber and is completely decompressed. KUB X-Ray 10/01/19 12:00 IMPRESSION: Persistent mild colonic distention. NG tube remains in place. Based on conventional radiograph and CT there is a very redundant sigmoid colon which could be prone to volvulus. Assessment & Plan - Diagnosis (1) Constipation Is this a current diagnosis for this admission?: Yes (2) Malnutrition Is this a current diagnosis for this admission?: Yes Plan: Due to her advanced dementia unable to maintain her nutrition per os. Family requests percutaneous endoscopic gastrostomy tube placement. I have discussed with her son, Magen Green, about the risk and benefits of the procedure including risk of adjacent structure injury, aspiration, infection, bleeding, poor healing at the tube exit site. He understands and agrees to proceed. We will plan to do this procedure tomorrow since they have been attempting to feed the patient. N.p.o. post midnight. He understands that procedure will be done by the oncoming on-call surgeon.
[2019-10-05] MEDS: HEPARIN SOD (PORCINE) 5,000 UNIT/ML 1 ML VIAL SUBCUT SCH ×3 (05:27→21:55)
[2019-10-05] MEDS ORDERED: HYDRALAZINE HCL INJ/PF 20 MG/1 ML SDV IV PRN (09:19)
[2019-10-05] MEDS: ASPIRIN 81 MG TABLET, ENT COATED PO SCH (09:20)
[2019-10-05] MEDS: DONEPEZIL HCL 5 MG TABLET PO SCH (09:20)
[2019-10-05] MEDS: DOCUSATE SODIUM 100 MG CAPSULE PO SCH ×2 (09:20→17:05)
[2019-10-05] MEDS: MEMANTINE HCL 10 MG TABLET PO SCH (09:20)
[2019-10-05] MEDS: ATORVASTATIN CALCIUM 40 MG TABLET PO SCH (09:20)
[2019-10-05] MEDS: AMLODIPINE BESYLATE 5 MG TABLET PO SCH ×2 (09:20→21:56)
[2019-10-05] MEDS: LACOSAMIDE 100 MG TABLET PO SCH ×2 (09:21→21:55)
[2019-10-05] MEDS: PANTOPRAZOLE SODIUM 40 MG VIAL IV SCH (09:21)
[2019-10-05] MEDS: POTASSIUM CHLORIDE 20 MEQ PACKET PO SCH (09:21)
--- NOTE | 2019-10-05 12:10 | PDOC PROGRESS REPORT ---
Subjective Progress Note for:: 10/05/19 Subjective:: No changes in events. Patient is scheduled for PEG tube placement this afternoon. Patient has no concerns this morning. Awaiting PEG placement. Reason For Visit: SMALL BOWEL OBSTRUCTION, HYPERTENSION, SEVERE Physical Exam Vital Signs: Temp Pulse Resp BP Pulse Ox 98.2 F 84 18 187/101 H 94 10/05/19 07:31 10/05/19 07:31 10/05/19 07:31 10/05/19 07:31 10/05/19 07:31 Intake & Output 10/04/19 10/05/19 10/06/19 06:59 06:59 06:59 Intake Total 0 492 Balance 0 492 Weight 49.2 kg 52.1 kg General appearance: PRESENT: no acute distress, cooperative Respiratory exam: PRESENT: clear to auscultation jesus, symmetrical, unlabored. ABSENT: tachypnea, wheezes Cardiovascular exam: PRESENT: RRR, +S1, +S2. ABSENT: tachycardia GI/Abdominal exam: PRESENT: soft. ABSENT: rebound, rigid, tenderness Neurological exam: PRESENT: awake, aphasic. ABSENT: alert, oriented to person, oriented to place, oriented to time, oriented to situation Results Laboratory Results: 10/01/19 04:40 10/04/19 03:57 10/01/19 15:00 Stool - Stool - Final Impressions: Acute Abdomen Series 09/30/19 14:48 IMPRESSION: Dilated gas-filled loop of small bowel within the central abdomen compatible small bowel obstruction. Gas is however present distally throughout the colon. Abdomen/Pelvis CT 09/30/19 18:28 IMPRESSION: 1. Stones or sludge in the gallbladder. 2. Abnormal appearance of the colon which is distended and contains air and fluid. However, there is no inflammation or obstruction. The small bowel is of normal caliber and is completely decompressed. KUB X-Ray 10/01/19 12:00 IMPRESSION: Persistent mild colonic distention. NG tube remains in place. Based on conventional radiograph and CT there is a very redundant sigmoid colon which could be prone to volvulus. Assessment and Plan - Diagnosis (1) Very poor nutrition Is this a current diagnosis for this admission?: Yes Plan: Patient has very poor nutritional intake and barely eats. On assessment by speech pathologist patient barely even opened her mouth to accept food intake and was unable to take a few sips via straw. Clinical panels also indicating the patient's only eats bites and a very small percentage of her meals This is not unusual for patient at her baseline and this is an expected progression of end-stage dementia leaving patient at high risk for dehydration. Family having discussions with palliative care and myself regarding potentially pursuing comfort care. PEG tube planned for today We will also continue palliative care discussions following peg placement. I have discussed with Bonny who states that [facility] would still be able to offer hospice services if wanted even with PEG tube placement. 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 Palliative care consult following. (3) Hypertension Qualifiers: Hypertension type: essential hypertension Qualified Code(s): I10 - Essential (primary) hypertension Is this a current diagnosis for this admission?: Yes Plan: Still uncontrolled. Norvasc 5 mg every 12 hours. Losartan 25 mg every 12 hours added. (4) Partial small bowel obstruction Is this a current diagnosis for this admission?: Yes (5) Hypokalemia Is this a current diagnosis for this admission?: Yes (6) Hyperlipidemia Qualifiers: Hyperlipidemia type: unspecified Qualified Code(s): E78.5 - Hyperlipidemia, unspecified Is this a current diagnosis for this admission?: Yes (7) Hypernatremia Is this a current diagnosis for this admission?: Yes (8) Seizure disorder Is this a current diagnosis for this admission?: Yes (9) Dysphagia Qualifiers: Dysphagia type: unspecified Qualified Code(s): R13.10 - Dysphagia, unspecified Is this a current diagnosis for this admission?: Yes - Time Time Spent with patient: Less than 15 minutes
[2019-10-05] MEDS ORDERED: DIPHENHYDRAMINE HCL 50 MG/ML VIAL ONE (12:55)
[2019-10-05] MEDS ORDERED: FENTANYL CITRATE INJ/PF 100 MCG/2 ML AMPUL ONE (12:55)
[2019-10-05] MEDS ORDERED: ONDANSETRON HCL INJ/PF 4 MG/2 ML SDV ONE (12:55)
[2019-10-05] MEDS ORDERED: NALOXONE HCL INJ/PF 0.4 MG/1 ML SDV ONE (12:56)
[2019-10-05] MEDS ORDERED: GLUCAGON,HUMAN RECOMB 1 MG INJ ONE (12:56)
[2019-10-05] MEDS ORDERED: EPINEPHRINE INJ 1 MG/10 ML DISP.SYRIN ONE (12:56)
[2019-10-05] MEDS ORDERED: FLUMAZENIL INJ 0.5 MG/5 ML VIAL ONE (12:56)
[2019-10-05] MEDS: MIDAZOLAM 2 MG/2 ML INJ ONE ×2 (13:07→13:18)
--- NOTE | 2019-10-05 13:43 | Operative Report ---
Nonrecallable Operative Report DATE OF SURGERY: 10/05/19 PREOPERATIVE DIAGNOSIS: Dementia POSTOPERATIVE DIAGNOSIS: Dementia OPERATION: Esophago-gastroscopy and PEG tube placement SURGEON: MELODIE LAURA ANESTHESIA: Moderate Sedation TISSUE REMOVED OR ALTERED: None COMPLICATIONS: None INTRAOPERATIVE FINDINGS: Gastric polyps PROCEDURE: Procedure note after appropriate timeout and site verification the procedure commenced. Patient was given 2 mg of Versed and 50 mcg of fentanyl for sedation. The abdomen was prepped and draped in usual sterile fashion. The area of the left hypochondrium was anesthetized with 1% lidocaine plain. The Olympus gastroscope was passed into the mouth traversed the upper esophageal sphincters into the stomach. Multiple small gastric polyps were noted along the body and antrum of the stomach. The scope was retroflexed and the light was seen on the abdominal wall. Using the introducer needle supplied with the kit a small incision was made on the left abdominal wall underneath the costal margin with a 15 blade and the needle was passed into the stomach under direct vision using the end endoscope. The wire was placed into the tear-away introducer and was grasped with the endoscope and pulled out through the mouth. It was then attached to the PEG tube and pulled down through the posterior pharynx into the stomach and out the anterior abdominal wall. The mushroom of the PEG tube was pulled up against the gastric wall and the anterior abdominal wall. Patient was then rescoped with the Olympus gastroscope again passed it down through the posterior pharynx into the stomach we confirm good placement of the PEG tube mushroom up against the gastric wall. The Olympus gastroscope was then removed. The tube was then affixed to the anterior abdominal wall skin with the supplied retention clip. It was also stitched to the skin with 2 stitches of 2-0 nylon suture. This completed the procedure estimated blood loss was negligible sponge needle counts were correct x2.
[2019-10-05] MEDS: LOSARTAN POTASSIUM 25 MG TABLET PO SCH ×2 (13:54→21:55)
[2019-10-06] MEDS: HEPARIN SOD (PORCINE) 5,000 UNIT/ML 1 ML VIAL SUBCUT SCH ×3 (05:54→21:50)
[2019-10-06 06:25] LABS: HEMATOCRIT 38.4 % (36.0-47.0); HEMOGLOBIN 12.8 g/dL (12.0-15.5); MEAN CORPUSCULAR HEMOGLOBIN 28.5 pg (27.0-33.4); MEAN CORPUSCULAR HGB CONC 33.3 g/dL (32.0-36.0); MEAN CORPUSCULAR VOLUME 86 fl (80-97); PLATELET COUNT 254 10^3/uL (150-450); RED BLOOD COUNT 4.48 10^6/uL (3.72-5.28); RED CELL DISTRIBUTION WIDTH 13.7 % (11.5-14.0); WHITE BLOOD COUNT 8.2 10^3/uL (4.0-10.5)
[2019-10-06 06:46] LABS: ALKALINE PHOSPHATASE 109 U/L (38-126); ANION GAP 8 (5-19); ASPARTATE AMINO TRANSFERASE 29 U/L (14-36); BILIRUBIN,TOTAL 0.5 mg/dL (0.2-1.3); BLOOD UREA NITROGEN 6 mg/dL (7-20); CALCIUM 9.1 mg/dL (8.4-10.2); CARBON DIOXIDE 26 mmol/L (22-30); CHLORIDE 107 mmol/L (98-107); GLUCOSE 102 mg/dL (75-110); POTASSIUM 3.1 mmol/L (3.6-5.0); TOTAL PROTEIN 5.8 g/dL (6.3-8.2)
[2019-10-06] MEDS ORDERED: POTASSIUM CHLORIDE 10 MEQ TABLET.ER PO ONE (09:00)
--- NOTE | 2019-10-06 09:25 | PDOC PROGRESS REPORT ---
Subjective Progress Note for:: 10/06/19 Subjective:: Patient underwent PEG tube placement yesterday; no events overnight. Reason For Visit: SMALL BOWEL OBSTRUCTION, HYPERTENSION, SEVERE Physical Exam Vital Signs: Temp Pulse Resp BP Pulse Ox 98.9 F 108 H 19 161/89 H 94 10/06/19 08:00 10/06/19 08:00 10/06/19 08:00 10/06/19 08:00 10/06/19 08:00 Intake & Output 10/05/19 10/06/19 10/07/19 06:59 06:59 06:59 Intake Total 492 250 Balance 492 250 Weight 52.1 kg 52.1 kg General appearance: PRESENT: other - Patient sitting head slumped down, nonverbal GI/Abdominal exam: PRESENT: other - PEG tube in good position, bolster not too tight. Results Laboratory Results: 10/06/19 05:26 10/06/19 05:26 10/06/19 10/06/19 05:26 05:26 WBC 8.2 RBC 4.48 Hgb 12.8 Hct 38.4 MCV 86 MCH 28.5 MCHC 33.3 RDW 13.7 Plt Count 254 Sodium 140.9 Potassium 3.1 L Chloride 107 Carbon Dioxide 26 Anion Gap 8 BUN 6 L Creatinine 0.36 L Est GFR ( Amer) > 60 Glucose 102 Calcium 9.1 Total Bilirubin 0.5 AST 29 Alkaline Phosphatase 109 Total Protein 5.8 L Albumin 3.0 L 10/01/19 15:00 Stool - Stool - Final 10/01/19 15:00 Stool - Stool Stool Culture - Final NO SALMONELLA, SHIGELLA, CAMPYLOBACTER, OR E.COLI 0157 RECOVERED. NEGATIVE FOR SHIGA TOXINS 1&2. Impressions: Acute Abdomen Series 09/30/19 14:48 IMPRESSION: Dilated gas-filled loop of small bowel within the central abdomen compatible small bowel obstruction. Gas is however present distally throughout the colon. Abdomen/Pelvis CT 09/30/19 18:28 IMPRESSION: 1. Stones or sludge in the gallbladder. 2. Abnormal appearance of the colon which is distended and contains air and fluid. However, there is no inflammation or obstruction. The small bowel is of normal caliber and is completely decompressed. KUB X-Ray 10/01/19 12:00 IMPRESSION: Persistent mild colonic distention. NG tube remains in place. Based on conventional radiograph and CT there is a very redundant sigmoid colon which could be prone to volvulus. Assessment & Plan - Diagnosis (1) Abdominal distention Is this a current diagnosis for this admission?: Yes Plan: Impression: 1 day status post feeding tube placement, no complications. Recommendations: 1. May start tube feeds as desired 2. Just getting home health involved for distance with tube management at home 3. Surgery will sign off; reconsult if clinically indicated - Time Time Spent with patient: Less than 15 minutes Medications reviewed and adjusted accordingly: Yes Anticipated discharge: Home
[2019-10-06] MEDS: ATORVASTATIN CALCIUM 40 MG TABLET PO SCH (11:17)
[2019-10-06] MEDS: DONEPEZIL HCL 5 MG TABLET PO SCH (11:17)
[2019-10-06] MEDS: AMLODIPINE BESYLATE 5 MG TABLET PO SCH ×2 (11:17→21:50)
[2019-10-06] MEDS: POTASSIUM CHLORIDE 20 MEQ PACKET PO SCH (11:17)
[2019-10-06] MEDS: PANTOPRAZOLE SODIUM 40 MG VIAL IV SCH (11:17)
[2019-10-06] MEDS: ASPIRIN 81 MG TABLET, ENT COATED PO SCH (11:18)
[2019-10-06] MEDS: MEMANTINE HCL 10 MG TABLET PO SCH (11:18)
[2019-10-06] MEDS: LACOSAMIDE 100 MG TABLET PO SCH ×2 (11:18→21:50)
[2019-10-06] MEDS: DOCUSATE SODIUM 100 MG CAPSULE PO SCH (11:19)
[2019-10-06] MEDS: LOSARTAN POTASSIUM 25 MG TABLET PO SCH ×2 (11:19→21:50)
[2019-10-06] MEDS ORDERED: POTASSIUM CHLORIDE 20 MEQ PACKET PO ONE (11:30)
--- NOTE | 2019-10-06 15:07 | PDOC PROGRESS REPORT ---
Subjective Progress Note for:: 10/06/19 Subjective:: Patient had PEG tube placed yesterday. Patient is in no distress at the moment. Unable to obtain subjective given patient's mental status. Reason For Visit: SMALL BOWEL OBSTRUCTION, HYPERTENSION, SEVERE Physical Exam Vital Signs: Temp Pulse Resp BP Pulse Ox 99.1 F 118 H 18 165/87 H 95 10/06/19 12:00 10/06/19 12:00 10/06/19 12:00 10/06/19 12:00 10/06/19 12:00 Intake & Output 10/05/19 10/06/19 10/07/19 06:59 06:59 06:59 Intake Total 492 250 Balance 492 250 Weight 52.1 kg 52.1 kg General appearance: PRESENT: no acute distress, cooperative Neck exam: ABSENT: JVD Respiratory exam: PRESENT: clear to auscultation jesus, unlabored. ABSENT: tachypnea, wheezes Cardiovascular exam: PRESENT: RRR, +S1, +S2. ABSENT: tachycardia GI/Abdominal exam: PRESENT: normal bowel sounds, soft. ABSENT: rebound, rigid, tenderness Neurological exam: PRESENT: awake, aphasic - Verbal, other - Contracted Results Laboratory Results: 10/06/19 05:26 10/06/19 05:26 10/06/19 10/06/19 05:26 05:26 WBC 8.2 RBC 4.48 Hgb 12.8 Hct 38.4 MCV 86 MCH 28.5 MCHC 33.3 RDW 13.7 Plt Count 254 Sodium 140.9 Potassium 3.1 L Chloride 107 Carbon Dioxide 26 Anion Gap 8 BUN 6 L Creatinine 0.36 L Est GFR ( Amer) > 60 Glucose 102 Calcium 9.1 Total Bilirubin 0.5 AST 29 Alkaline Phosphatase 109 Total Protein 5.8 L Albumin 3.0 L 10/01/19 15:00 Stool - Stool - Final 10/01/19 15:00 Stool - Stool Stool Culture - Final NO SALMONELLA, SHIGELLA, CAMPYLOBACTER, OR E.COLI 0157 RECOVERED. NEGATIVE FOR SHIGA TOXINS 1&2. Impressions: Acute Abdomen Series 09/30/19 14:48 IMPRESSION: Dilated gas-filled loop of small bowel within the central abdomen compatible small bowel obstruction. Gas is however present distally throughout the colon. Abdomen/Pelvis CT 09/30/19 18:28 IMPRESSION: 1. Stones or sludge in the gallbladder. 2. Abnormal appearance of the colon which is distended and contains air and fluid. However, there is no inflammation or obstruction. The small bowel is of normal caliber and is completely decompressed. KUB X-Ray 10/01/19 12:00 IMPRESSION: Persistent mild colonic distention. NG tube remains in place. Based on conventional radiograph and CT there is a very redundant sigmoid colon which could be prone to volvulus. Assessment and Plan - Diagnosis (1) Very poor nutrition Is this a current diagnosis for this admission?: Yes Plan: This is not unusual for patient at her baseline and this is an expected progression of end-stage dementia leaving patient at high risk for dehydration. PEG tube placed 10/05/2019 Dietitian consulted for tube feeds. Will start tube feeds today and uptitrate to goal. 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 Palliative care consult following. Patient son will continue to coordinate with Bonny from [facility] in the outpatient setting regarding whether or not to proceed with hospice. (3) Hypertension Qualifiers: Hypertension type: essential hypertension Qualified Code(s): I10 - Essential (primary) hypertension Is this a current diagnosis for this admission?: Yes Plan: Still uncontrolled. Norvasc 5 mg every 12 hours. Losartan 25 mg every 12 hours. Monitor BP response (4) Partial small bowel obstruction Is this a current diagnosis for this admission?: Yes Plan: resolved (5) Hypokalemia Is this a current diagnosis for this admission?: Yes (6) Hyperlipidemia Qualifiers: Hyperlipidemia type: unspecified Qualified Code(s): E78.5 - Hyperlipidemia, unspecified Is this a current diagnosis for this admission?: Yes (7) Hypernatremia Is this a current diagnosis for this admission?: Yes (8) Seizure disorder Is this a current diagnosis for this admission?: Yes - Time Time Spent with patient: Less than 15 minutes
[2019-10-07] MEDS: HEPARIN SOD (PORCINE) 5,000 UNIT/ML 1 ML VIAL SUBCUT SCH ×3 (05:55→21:44)
[2019-10-07] MEDS ORDERED: NORMAL SALINE 1000 ML 1,000 ML IV ONE (08:30)
[2019-10-07 08:58] LABS: ANION GAP 9 (5-19); BLOOD UREA NITROGEN 12 mg/dL (7-20); CALCIUM 9.4 mg/dL (8.4-10.2); CARBON DIOXIDE 27 mmol/L (22-30); CHLORIDE 108 mmol/L (98-107); GLUCOSE 99 mg/dL (75-110); PHOSPHORUS 3.6 mg/dL (2.5-4.5); POTASSIUM 3.2 mmol/L (3.6-5.0)
[2019-10-07] MEDS: ASPIRIN 81 MG TABLET, ENT COATED PO SCH (10:04)
--- NOTE | 2019-10-07 10:28 | PDOC PROGRESS REPORT ---
Subjective Progress Note for:: 10/07/19 Subjective:: Tube feeding started last night. Currently no issues. Reason For Visit: SMALL BOWEL OBSTRUCTION, HYPERTENSION, SEVERE Physical Exam Vital Signs: Temp Pulse Resp BP Pulse Ox 98.6 F 115 H 18 150/99 H 93 10/07/19 08:00 10/07/19 08:00 10/07/19 08:00 10/07/19 08:00 10/07/19 08:00 Intake & Output 10/06/19 10/07/19 10/08/19 06:59 06:59 06:59 Intake Total 250 465 Balance 250 465 Weight 52.1 kg 48.9 kg General appearance: PRESENT: no acute distress, cooperative Respiratory exam: PRESENT: clear to auscultation jseus Cardiovascular exam: PRESENT: +S1, +S2 GI/Abdominal exam: PRESENT: soft. ABSENT: rebound, rigid, tenderness Neurological exam: PRESENT: awake, aphasic. ABSENT: alert, altered Results Laboratory Results: 10/06/19 05:26 10/07/19 08:27 10/07/19 08:27 Sodium 144.0 Potassium 3.2 L Chloride 108 H Carbon Dioxide 27 Anion Gap 9 BUN 12 Creatinine 0.38 L Est GFR ( Amer) > 60 Glucose 99 Calcium 9.4 Phosphorus 3.6 Magnesium 1.9 Impressions: Acute Abdomen Series 09/30/19 14:48 IMPRESSION: Dilated gas-filled loop of small bowel within the central abdomen compatible small bowel obstruction. Gas is however present distally throughout the colon. Abdomen/Pelvis CT 09/30/19 18:28 IMPRESSION: 1. Stones or sludge in the gallbladder. 2. Abnormal appearance of the colon which is distended and contains air and fluid. However, there is no inflammation or obstruction. The small bowel is of normal caliber and is completely decompressed. KUB X-Ray 10/01/19 12:00 IMPRESSION: Persistent mild colonic distention. NG tube remains in place. Based on conventional radiograph and CT there is a very redundant sigmoid colon which could be prone to volvulus. Assessment and Plan - Diagnosis (1) Very poor nutrition Is this a current diagnosis for this admission?: Yes Plan: This is not unusual for patient at her baseline and this is an expected progression of end-stage dementia leaving patient at high risk for dehydration. PEG tube placed 10/05/2019 Tube feeding started last night. Uptitrate tube feeds until we attain goal. Monitor labs for refeeding syndrome. (2) Alzheimer's dementia Qualifiers: Alzheimer's disease onset: unspecified onset Dementia behavioral disturbance: with behavioral disturbance Qualified Code(s): G30.9 - Alzheimer's disease, unspecified; F02.81 - Dementia in other diseases classified elsewhere with behavioral disturbance Is this a current diagnosis for this admission?: Yes (3) Hypertension Qualifiers: Hypertension type: essential hypertension Qualified Code(s): I10 - Essential (primary) hypertension Is this a current diagnosis for this admission?: Yes (4) Partial small bowel obstruction Is this a current diagnosis for this admission?: Yes (5) Hypokalemia Is this a current diagnosis for this admission?: Yes (6) Hyperlipidemia Qualifiers: Hyperlipidemia type: unspecified Qualified Code(s): E78.5 - Hyperlipidemia, unspecified Is this a current diagnosis for this admission?: Yes (7) Hypernatremia Is this a current diagnosis for this admission?: Yes (8) Seizure disorder Is this a current diagnosis for this admission?: Yes - Time Time Spent with patient: Less than 15 minutes Anticipated discharge: Home with Homehealth Within: within 24 hours
[2019-10-07] MEDS: PANTOPRAZOLE SODIUM 40 MG VIAL IV SCH (10:40)
[2019-10-07] MEDS: LOSARTAN POTASSIUM 25 MG TABLET PO SCH ×2 (10:44→21:43)
[2019-10-07] MEDS: DONEPEZIL HCL 5 MG TABLET PO SCH (10:45)
[2019-10-07] MEDS: MEMANTINE HCL 10 MG TABLET PO SCH (10:45)
[2019-10-07] MEDS: ATORVASTATIN CALCIUM 40 MG TABLET PO SCH (10:46)
[2019-10-07] MEDS: LACOSAMIDE 100 MG TABLET PO SCH ×2 (10:46→21:43)
[2019-10-07] MEDS: AMLODIPINE BESYLATE 5 MG TABLET PO SCH ×2 (10:46→21:44)
[2019-10-07] MEDS: POTASSIUM CHLORIDE 20 MEQ PACKET PO SCH (10:54)
[2019-10-07] MEDS ORDERED: POTASSIUM CHLORIDE 20 MEQ PACKET PO ONE (11:00)
--- NOTE | 2019-10-07 17:34 | RADIOLOGY REPORT (SQ) ---
EXAM DESCRIPTION: CHEST SINGLE VIEW COMPLETED DATE/TIME: 10/07/2019 5:19 pm REASON FOR STUDY: hypoxia COMPARISON: Chest radiographs 12/06/2018 EXAM PARAMETERS: NUMBER OF VIEWS: One view. TECHNIQUE: Single frontal radiographic view of the chest acquired. RADIATION DOSE: NA LIMITATIONS: None. FINDINGS: LUNGS AND PLEURA: Low lung volumes. Reticulonodular airspace opacities outlining the luke r fissure. MEDIASTINUM AND HILAR STRUCTURES: Unchanged contours. HEART AND VASCULAR STRUCTURES: Heart normal in size. Normal vasculature. BONES: No acute findings. HARDWARE: None in the chest. OTHER: No other significant finding. IMPRESSION: Low lung volumes with reticulonodular airspace opacities outlining the right minor fissu re. In the acute setting, correlate for infection. TECHNICAL DOCUMENTATION: JOB ID: [id number] [employer]- All Rights Reserved Reading location - IP/workstation name: [email or web address]
[2019-10-07] MEDS ORDERED: LEVALBUTEROL HCL NEB 1.25 MG/3 ML AMPUL NEB ONE (19:00)
[2019-10-07] MEDS ORDERED: GUAIFENESIN 600 MG TABLET.SA PO PRN (22:30)
[2019-10-08] MEDS: LEVALBUTEROL HCL NEB 1.25 MG/3 ML AMPUL NEB SCH ×3 (00:15→16:11)
[2019-10-08] MEDS: HEPARIN SOD (PORCINE) 5,000 UNIT/ML 1 ML VIAL SUBCUT SCH ×3 (05:50→21:56)
[2019-10-08 06:02] LABS: ANION GAP 6 (5-19); BLOOD UREA NITROGEN 9 mg/dL (7-20); CALCIUM 8.9 mg/dL (8.4-10.2); CARBON DIOXIDE 26 mmol/L (22-30); CHLORIDE 114 mmol/L (98-107); GLUCOSE 125 mg/dL (75-110); PHOSPHORUS 3.2 mg/dL (2.5-4.5); POTASSIUM 3.4 mmol/L (3.6-5.0)
[2019-10-08] MEDS: ASPIRIN 81 MG TABLET, ENT COATED PO SCH (10:00)
[2019-10-08] MEDS: DONEPEZIL HCL 5 MG TABLET PO SCH (10:11)
[2019-10-08] MEDS: LACOSAMIDE 100 MG TABLET PO SCH ×2 (10:12→21:57)
[2019-10-08] MEDS: AMLODIPINE BESYLATE 5 MG TABLET PO SCH ×2 (10:12→21:58)
[2019-10-08] MEDS: LOSARTAN POTASSIUM 25 MG TABLET PO SCH ×2 (10:12→21:57)
[2019-10-08] MEDS: MEMANTINE HCL 10 MG TABLET PO SCH (10:12)
[2019-10-08] MEDS: POTASSIUM CHLORIDE 20 MEQ PACKET PO SCH (10:12)
[2019-10-08] MEDS: ATORVASTATIN CALCIUM 40 MG TABLET PO SCH (10:12)
[2019-10-08] MEDS ORDERED: 1/2 NORMAL SALINE IV ONE (12:44)
--- NOTE | 2019-10-08 12:53 | PDOC PROGRESS REPORT ---
Subjective Progress Note for:: 10/08/19 Subjective:: Patient's SPO2 dropped to low 80s on room air yesterday afternoon. Chest x-ray yesterday does show some interval development of linear opacity near the right lingular which is likely atelectasis versus fluid in the fissure. Unfortunately, given patient's dementia patient cannot partake in incentive spirometer. Started on neb treatments. This morning, patient's tube feeds are at goal and no significant residuals according to nurse. Also informed that patient had a bowel movement last night. Patient's oxygen dropped to 82% on room air. Improved to the mid to high 90s on about 3 to 4 L nasal cannula. Reason For Visit: SMALL BOWEL OBSTRUCTION, HYPERTENSION, SEVERE Physical Exam Vital Signs: Temp Pulse Resp BP Pulse Ox 98.7 F 111 H 16 156/76 H 90 L 10/08/19 11:08 10/08/19 11:08 10/08/19 11:08 10/08/19 11:08 10/08/19 11:08 Intake & Output 10/07/19 10/08/19 10/09/19 06:59 06:59 06:59 Intake Total 465 1000 Balance 465 1000 Weight 48.9 kg 48.9 kg General appearance: PRESENT: no acute distress, cooperative Neck exam: ABSENT: JVD Respiratory exam: PRESENT: clear to auscultation jesus, unlabored. ABSENT: tachypnea, wheezes Cardiovascular exam: PRESENT: RRR, +S1, +S2. ABSENT: tachycardia GI/Abdominal exam: PRESENT: distended - Mild, soft, tenderness. ABSENT: firm, guarding, rebound, rigid Musculoskeletal exam: ABSENT: ambulatory Neurological exam: PRESENT: awake, aphasic. ABSENT: alert, oriented to person, oriented to place, oriented to time, oriented to situation Results Laboratory Results: 10/06/19 05:26 10/08/19 04:55 10/08/19 04:55 Sodium 145.8 H Potassium 3.4 L Chloride 114 H Carbon Dioxide 26 Anion Gap 6 BUN 9 Creatinine 0.36 L Est GFR ( Amer) > 60 Glucose 125 H Calcium 8.9 Phosphorus 3.2 Magnesium 1.9 Impressions: Acute Abdomen Series 09/30/19 14:48 IMPRESSION: Dilated gas-filled loop of small bowel within the central abdomen compatible small bowel obstruction. Gas is however present distally throughout the colon. Abdomen/Pelvis CT 09/30/19 18:28 IMPRESSION: 1. Stones or sludge in the gallbladder. 2. Abnormal appearance of the colon which is distended and contains air and fluid. However, there is no inflammation or obstruction. The small bowel is of normal caliber and is completely decompressed. KUB X-Ray 10/01/19 12:00 IMPRESSION: Persistent mild colonic distention. NG tube remains in place. Based on conventional radiograph and CT there is a very redundant sigmoid colon which could be prone to volvulus. Chest X-Ray 10/07/19 00:00 IMPRESSION: Low lung volumes with reticulonodular airspace opacities outlining the right minor fissure. In the acute setting, correlate for infection. Assessment and Plan - Diagnosis (1) Acute respiratory failure with hypoxia Is this a current diagnosis for this admission?: Yes Plan: SPO2 in the low 80s on room air. Improved back to normal with nasal cannula. Chest x-ray showing low lung volumes likely from poor respiratory effort and interval development of small linear airspace opacity outlining right minor fissure. I believe this to be atelectasis. Unfortunately, patient cannot partake in incentive spirometer given advanced dementia. Will attempt using nebs. Will try chest physiotherapy diet may be of little benefit to patient. Have notified patient's son Clinton and he and Magen will be coming this afternoon to have a conversation about patient. (2) Very poor nutrition Is this a current diagnosis for this admission?: Yes Plan: This is not unusual for patient at her baseline and this is an expected progression of end-stage dementia leaving patient at high risk for dehydration. PEG tube placed 10/05/2019. Tube feeds have now reached goal. Residuals are minimal. Monitor labs for refeeding syndrome. (3) Alzheimer's dementia Qualifiers: Alzheimer's disease onset: unspecified onset Dementia behavioral disturbance: with behavioral disturbance Qualified Code(s): G30.9 - Alzheimer's disease, unspecified; F02.81 - Dementia in other diseases classified elsewhere with behavioral disturbance Is this a current diagnosis for this admission?: Yes Plan: Patient has end-stage dementia was characterized by mutism/nonverbal and bedbound and barely eating Aricept and Namenda. Palliative care consult following. Patient son will continue to coordinate with Bonny from [facility] in the outpatient setting regarding whether or not to proceed with hospice. (4) Hypertension Qualifiers: Hypertension type: essential hypertension Qualified Code(s): I10 - Essential (primary) hypertension Is this a current diagnosis for this admission?: Yes Plan: Norvasc 5 mg every 12 hours. Losartan 25 mg every 12 hours. (5) Hypokalemia Is this a current diagnosis for this admission?: Yes Plan: Continue daily supplements. (6) Hypernatremia Is this a current diagnosis for this admission?: Yes Plan: Dehydration. Give bolus of half-normal saline. (7) Seizure disorder Is this a current diagnosis for this admission?: Yes Plan: Continue lacosamide (8) Partial small bowel obstruction Is this a current diagnosis for this admission?: Yes Plan: resolved (9) Hyperlipidemia Qualifiers: Hyperlipidemia type: unspecified Qualified Code(s): E78.5 - Hyperlipidemia, unspecified Is this a current diagnosis for this admission?: Yes - Time Time Spent with patient: 25-34 minutes
[2019-10-08] MEDS ORDERED: ONDANSETRON HCL INJ/PF 4 MG/2 ML SDV IV PRN (15:30)
[2019-10-08] MEDS: DOCUSATE SODIUM 100 MG CAPSULE PO SCH (17:12)
--- NOTE | 2019-10-08 18:09 | ADVANCED CARE ---
- Diagnosis (1) Acute respiratory failure with hypoxia Diagnosis Current: Yes (2) Very poor nutrition Diagnosis Current: Yes (3) Alzheimer's dementia Diagnosis Current: Yes Attendance: Patient's 3 sons including Ezequiel and Magen as well as myself. Resuscitation Status: Do Not Resuscitate Discussion: Discussed the situation at length. Also discussed what hospice care entails. After having elaborate discussion and explaining what is involved with hospice care including but thinks that hospice care often allow or disallow, patient's son's have decided to make patient hospice with plan for patient to go home on hospice care with the tube feeding. Time Spent: 20 mins
[2019-10-09] MEDS: LEVALBUTEROL HCL NEB 1.25 MG/3 ML AMPUL NEB SCH ×3 (00:57→15:53)
[2019-10-09] MEDS: HEPARIN SOD (PORCINE) 5,000 UNIT/ML 1 ML VIAL SUBCUT SCH ×3 (05:22→21:52)
[2019-10-09] MEDS: LOSARTAN POTASSIUM 25 MG TABLET PO SCH ×2 (09:01→21:54)
[2019-10-09] MEDS: MEMANTINE HCL 10 MG TABLET PO SCH (09:01)
[2019-10-09] MEDS: POTASSIUM CHLORIDE 20 MEQ PACKET PO SCH (09:01)
[2019-10-09] MEDS: LACOSAMIDE 100 MG TABLET PO SCH ×2 (09:01→21:52)
[2019-10-09] MEDS: AMLODIPINE BESYLATE 5 MG TABLET PO SCH ×2 (09:02→21:52)
[2019-10-09] MEDS: DONEPEZIL HCL 5 MG TABLET PO SCH (09:02)
[2019-10-09] MEDS: DOCUSATE SODIUM 100 MG CAPSULE PO SCH ×2 (09:02→17:36)
[2019-10-09] MEDS: ASPIRIN 81 MG TABLET, ENT COATED PO SCH (09:02)
[2019-10-09] MEDS: ATORVASTATIN CALCIUM 40 MG TABLET PO SCH (09:02)
--- NOTE | 2019-10-09 17:20 | PDOC PROGRESS REPORT ---
Subjective Progress Note for:: 10/09/19 Subjective:: No issues overnight. Patient's son deciding on what home hospice team to choose. Reason For Visit: SMALL BOWEL OBSTRUCTION, HYPERTENSION, SEVERE Physical Exam Vital Signs: Temp Pulse Resp BP Pulse Ox 98.9 F 109 H 16 145/85 H 86 L 10/09/19 08:00 10/09/19 15:53 10/09/19 15:53 10/09/19 08:00 10/09/19 15:53 Intake & Output 10/08/19 10/09/19 10/10/19 06:59 06:59 06:59 Intake Total 1000 800 Balance 1000 800 Weight 48.9 kg 48.9 kg General appearance: PRESENT: no acute distress, cooperative Neck exam: ABSENT: JVD Respiratory exam: PRESENT: rhonchi, unlabored. ABSENT: retraction Neurological exam: PRESENT: awake, aphasic - nonverbal Results Laboratory Results: 10/06/19 05:26 10/08/19 04:55 Impressions: Acute Abdomen Series 09/30/19 14:48 IMPRESSION: Dilated gas-filled loop of small bowel within the central abdomen compatible small bowel obstruction. Gas is however present distally throughout the colon. Abdomen/Pelvis CT 09/30/19 18:28 IMPRESSION: 1. Stones or sludge in the gallbladder. 2. Abnormal appearance of the colon which is distended and contains air and fluid. However, there is no inflammation or obstruction. The small bowel is of normal caliber and is completely decompressed. KUB X-Ray 10/01/19 12:00 IMPRESSION: Persistent mild colonic distention. NG tube remains in place. Based on conventional radiograph and CT there is a very redundant sigmoid colon which could be prone to volvulus. Chest X-Ray 10/07/19 00:00 IMPRESSION: Low lung volumes with reticulonodular airspace opacities outlining the right minor fissure. In the acute setting, correlate for infection. Assessment and Plan - Diagnosis (1) Acute respiratory failure with hypoxia Is this a current diagnosis for this admission?: Yes (2) Very poor nutrition Is this a current diagnosis for this admission?: Yes (3) Alzheimer's dementia Qualifiers: Alzheimer's disease onset: unspecified onset Dementia behavioral disturbance: with behavioral disturbance Qualified Code(s): G30.9 - Alzheimer's disease, unspecified; F02.81 - Dementia in other diseases classified elsewhere with behavioral disturbance Is this a current diagnosis for this admission?: Yes (4) Hypertension Qualifiers: Hypertension type: essential hypertension Qualified Code(s): I10 - Essential (primary) hypertension Is this a current diagnosis for this admission?: Yes (5) Hypokalemia Is this a current diagnosis for this admission?: Yes (6) Hypernatremia Is this a current diagnosis for this admission?: Yes (7) Seizure disorder Is this a current diagnosis for this admission?: Yes (8) Partial small bowel obstruction Is this a current diagnosis for this admission?: Yes (9) Hyperlipidemia Qualifiers: Hyperlipidemia type: unspecified Qualified Code(s): E78.5 - Hyperlipidemia, unspecified Is this a current diagnosis for this admission?: Yes - Plan Summary Summary: Patient has been made hospice yesterday At this point, we are waiting son's decision on hospice services for home hospice. Patient is planned for discharge tomorrow once son decides on hospice company. In the meantime, continue tube feeds which are at goal at this point with minimal residuals Continue oxygen supplementation. Still requiring oxygen given atelectasis but really patient is not able to partake significantly chest physiotherapy/incentive spirometer given advanced dementia. Plan to discharge on hospice care on oxygen. - Time Time Spent with patient: Less than 15 minutes
[2019-10-10] MEDS: LEVALBUTEROL HCL NEB 1.25 MG/3 ML AMPUL NEB SCH ×2 (00:03→08:20)
[2019-10-10] MEDS: HEPARIN SOD (PORCINE) 5,000 UNIT/ML 1 ML VIAL SUBCUT SCH (05:07)
[2019-10-10] MEDS ORDERED: LACOSAMIDE 100 MG TABLET PO SCH (10:00)
[2019-10-10] MEDS: ATORVASTATIN CALCIUM 40 MG TABLET PO SCH (10:53)
[2019-10-10] MEDS: DONEPEZIL HCL 5 MG TABLET PO SCH (10:53)
[2019-10-10] MEDS: DOCUSATE SODIUM 100 MG CAPSULE PO SCH (10:53)
[2019-10-10] MEDS: LOSARTAN POTASSIUM 25 MG TABLET PO SCH ×2 (10:53→21:04)
[2019-10-10] MEDS: ASPIRIN 81 MG TABLET, ENT COATED PO SCH (10:53)
[2019-10-10] MEDS: MEMANTINE HCL 10 MG TABLET PO SCH (10:53)
[2019-10-10] MEDS: AMLODIPINE BESYLATE 5 MG TABLET PO SCH (10:54)
[2019-10-10] MEDS: POTASSIUM CHLORIDE 20 MEQ PACKET PO SCH (10:54)
--- NOTE | 2019-10-10 11:30 | PDOC PROGRESS REPORT ---
Subjective Progress Note for:: 10/10/19 Subjective:: Patient unable to provide any history however chart review indicates that she has been made comfort care and currently awaiting hospice plans for discharge. Reason For Visit: SMALL BOWEL OBSTRUCTION, HYPERTENSION, SEVERE Physical Exam Vital Signs: Temp Pulse Resp BP Pulse Ox 99.1 F 103 H 18 143/64 H 89 L 10/10/19 08:00 10/10/19 08:26 10/10/19 08:26 10/10/19 08:00 10/10/19 08:26 Intake & Output 10/09/19 10/10/19 10/11/19 06:59 06:59 06:59 Intake Total 800 Balance 800 Weight 48.9 kg 48.9 kg General appearance: PRESENT: no acute distress Respiratory exam: PRESENT: clear to auscultation jesus Cardiovascular exam: PRESENT: RRR, +S1, +S2 GI/Abdominal exam: PRESENT: other - Tube feeding Rectal exam: PRESENT: deferred Neurological exam: PRESENT: awake, other - not verbally responsive Results Laboratory Results: 10/06/19 05:26 10/08/19 04:55 Impressions: Acute Abdomen Series 09/30/19 14:48 IMPRESSION: Dilated gas-filled loop of small bowel within the central abdomen compatible small bowel obstruction. Gas is however present distally throughout the colon. Abdomen/Pelvis CT 09/30/19 18:28 IMPRESSION: 1. Stones or sludge in the gallbladder. 2. Abnormal appearance of the colon which is distended and contains air and fluid. However, there is no inflammation or obstruction. The small bowel is of normal caliber and is completely decompressed. KUB X-Ray 10/01/19 12:00 IMPRESSION: Persistent mild colonic distention. NG tube remains in place. B ased on conventional radiograph and CT there is a very redundant sigmoid colon which could be prone to volvulus. Chest X-Ray 10/07/19 00:00 IMPRESSION: Low lung volumes with reticulonodular airspace opacities outlining the right minor fissure. In the acute setting, correlate for infection. Assessment and Plan - Diagnosis (1) Acute respiratory failure with hypoxia Is this a current diagnosis for this admission?: Yes (2) Functional quadriplegia Is this a current diagnosis for this admission?: Yes Plan: The patient has functional quadriplegia. She is bedbound. She cannot feed herself. This is likely from end-stage dementia. (3) Hypertension Qualifiers: Hypertension type: essential hypertension Qualified Code(s): I10 - Essential (primary) hypertension Is this a current diagnosis for this admission?: Yes (4) Malnutrition Is this a current diagnosis for this admission?: Yes (5) Partial small bowel obstruction Is this a current diagnosis for this admission?: Yes (6) Alzheimer's dementia Qualifiers: Alzheimer's disease onset: unspecified onset Dementia behavioral disturbance: with behavioral disturbance Qualified Code(s): G30.9 - Alzheimer's disease, unspecified; F02.81 - Dementia in other diseases classified elsewhere with behavioral disturbance Is this a current diagnosis for this admission?: Yes (7) Hypernatremia Is this a current diagnosis for this admission?: Yes (8) Hypokalemia Is this a current diagnosis for this admission?: Yes (9) Seizure disorder Is this a current diagnosis for this admission?: Yes - Plan Summary Summary: Acute respiratory failure with hypoxia Protein calorie malnutrition Dementia Hypertension Hypokalemia Hyponatremia Seizure disorder Partial small bowel obstruction Currently awaiting plans for discharge. Will DC active medications and continue with comfort care - Time Time Spent with patient: 15-24 minutes Medications reviewed and adjusted accordingly: Yes Anticipated discharge: Hospice Within: within 48 hours
[2019-10-10 22:46] VITALS: BP 154/95
[2019-10-11] MEDS: LOSARTAN POTASSIUM 25 MG TABLET PO SCH ×2 (09:29→09:31)
[2019-10-11] MEDS: MEMANTINE HCL 10 MG TABLET PO SCH ×2 (09:29→09:31)
--- NOTE | 2019-10-11 16:35 | PDOC DISCHARGE SUMMARY ---
Impression - Admit/DC Date/PCP Admission Date/Primary Care Provider: 09/30/19 19:08 MEEK POMPA MD Discharge Date: 10/11/19 - Discharge Diagnosis (1) Hospice care Is this a current diagnosis for this admission?: Yes (2) Acute respiratory failure with hypoxia Is this a current diagnosis for this admission?: Yes (3) Functional quadriplegia Is this a current diagnosis for this admission?: Yes (4) Hypertension Is this a current diagnosis for this admission?: Yes (5) Malnutrition Is this a current diagnosis for this admission?: Yes (6) Partial small bowel obstruction Is this a current diagnosis for this admission?: Yes (7) Alzheimer's dementia Is this a current diagnosis for this admission?: Yes (8) Hypernatremia Is this a current diagnosis for this admission?: Yes (9) Hypokalemia Is this a current diagnosis for this admission?: Yes (10) Seizure disorder Is this a current diagnosis for this admission?: Yes - Assessment Summary: Acute respiratory failure with hypoxia Protein calorie malnutrition Dementia Hypertension Hypokalemia Hyponatremia Seizure disorder Partial small bowel obstruction Currently awaiting plans for discharge. Will DC active medications and continue with comfort care - Additional Information Resuscitation Status: Do Not Resuscitate Referrals: HOME,HOSPICE [Other] (When patient is discharged on home hospice, the hospice company will be following up with the patient) Home Medications: Amlodipine Besylate [Norvasc 2.5 mg Tablet] 2.5 mg PO Q12 10/01/19 Aspirin [Ecotrin 81 mg EC Tablet] 81 mg PO DAILY 10/01/19 Atorvastatin Calcium [Lipitor 40 mg Tablet] 40 mg PO DAILY 10/01/19 Donepezil HCl [Aricept] 10 mg PO DAILY 10/01/19 Lacosamide [Vimpat] 150 mg PO Q12 10/01/19 Memantine HCl [Namenda] 5 mg PO DAILY 10/01/19 Omeprazole 40 mg PO BID 10/01/19 Potassium Chloride 7.5 ml PO DAILY 10/01/19 History of Present Illiness History of Present Illness: COREEN BHAKTA is a 83 year old female Patient was admitted with small bowel obstruction. She was also found to be hypokalemic as well as hyponatremic on initial presentation. She was seen by general surgery on consultation please refer to surgery notes for full details. Hospital Course Hospital Course: He was admitted for further management. She was seen by general surgery. He was felt that there was no need for surgical intervention as patient did not have an acute abdomen. She had an NG tube placed which was subsequently discontinued. Has small bowel obstruction symptoms resolve however patient's nutritional status was pretty poor and oral intake is poor and so a gastrostomy tube was placed. Subsequent to these there was discussion with advanced care planning and patient was thus made a DO NOT RESUSCITATE with comfort care. The plan was for patient to go home with tube feeding. Her hospital stay was prolonged due to remains be made for hospice care at home. Today patient is able to go home with supplies being available and so she is been discharged home with hospice care Physical Exam Vital Signs: Temp Pulse Resp BP Pulse Ox 99.7 F 128 H 16 154/95 H 89 L 10/10/19 20:00 10/10/19 20:00 10/10/19 20:00 10/10/19 20:00 10/10/19 20:00 Intake & Output 10/10/19 10/11/19 10/12/19 06:59 06:59 06:59 Weight 48.9 kg 28.5 kg General appearance: PRESENT: no acute distress, other - Elderly and frail Neck exam: ABSENT: JVD Respiratory exam: PRESENT: unlabored. ABSENT: accessory muscle use Cardiovascular exam: PRESENT: RRR, +S1, +S2 GI/Abdominal exam: PRESENT: distended, other - PEG tube in place Neurological exam: ABSENT: alert, oriented to person, oriented to place, oriented to time, oriented to situation Results Laboratory Results: WBC 8.2 10^3/uL (4.0-10.5) 10/06/19 05:26 RBC 4.48 10^6/uL (3.72-5.28) 10/06/19 05:26 Hgb 12.8 g/dL (12.0-15.5) 10/06/19 05:26 Hct 38.4 % (36.0-47.0) 10/06/19 05:26 MCV 86 fl (80-97) 10/06/19 05:26 MCH 28.5 pg (27.0-33.4) 10/06/19 05:26 MCHC 33.3 g/dL (32.0-36.0) 10/06/19 05:26 RDW 13.7 % (11.5-14.0) 10/06/19 05:26 Plt Count 254 10^3/uL (150-450) 10/06/19 05:26 Lymph % (Auto) 27.7 % (13-45) 10/01/19 04:40 [place] % (Auto) 8.0 % (3-13) 10/01/19 04:40 Eos % (Auto) 0.6 % (0-6) 10/01/19 04:40 Baso % (Auto) 1.4 % (0-2) 10/01/19 04:40 Absolute Neuts (auto) 4.8 10^3/uL (1.7-8.2) 10/01/19 04:40 Absolute Lymphs (auto) 2.1 10^3/uL (0.5-4.7) 10/01/19 04:40 Absolute Monos (auto) 0.6 10^3/uL (0.1-1.4) 10/01/19 04:40 Absolute Eos (auto) 0.0 10^3/uL (0.0-0.6) 10/01/19 04:40 Absolute Basos (auto) 0.1 10^3/uL (0.0-0.2) 10/01/19 04:40 Seg Neutrophils % 62.3 % (42-78) 10/01/19 04:40 PT 13.9 SEC (11.4-15.4) 09/30/19 11:07 INR 1.07 09/30/19 11:07 Sodium 145.8 mmol/L (137-145) H 10/08/19 04:55 Potassium 3.4 mmol/L (3.6-5.0) L 10/08/19 04:55 Chloride 114 mmol/L (98-107) H 10/08/19 04:55 Carbon Dioxide 26 mmol/L (22-30) 10/08/19 04:55 Anion Gap 6 (5-19) 10/08/19 04:55 BUN 9 mg/dL (7-20) 10/08/19 04:55 Creatinine 0.36 mg/dL (0.52-1.25) L 10/08/19 04:55 Est GFR ( Amer) > 60 (>60) 10/08/19 04:55 Est GFR (MDRD) Non-Af > 60 (>60) 10/08/19 04:55 Glucose 125 mg/dL (75-110) H 10/08/19 04:55 POC Glucose 96 mg/dL (70-110) 10/08/19 16:22 Calcium 8.9 mg/dL (8.4-10.2) 10/08/19 04:55 Phosphorus 3.2 mg/dL (2.5-4.5) 10/08/19 04:55 Magnesium 1.9 mg/dL (1.6-2.3) 10/08/19 04:55 Total Bilirubin 0.5 mg/dL (0.2-1.3) 10/06/19 05:26 Direct Bilirubin 0.0 mg/dL (0.0-0.4) 10/06/19 05:26 Neonat Total Bilirubin Not Reportable 10/06/19 05:26 Neonat Direct Bilirubin Not Reportable 10/06/19 05:26 Neonat Indirect Bili Not Reportable 10/06/19 05:26 AST 29 U/L (14-36) 10/06/19 05:26 ALT 18 U/L (<35) 10/06/19 05:26 Alkaline Phosphatase 109 U/L (38-126) 10/06/19 05:26 Total Protein 5.8 g/dL (6.3-8.2) L 10/06/19 05:26 Albumin 3.0 g/dL (3.5-5.0) L 10/06/19 05:26 Urine Color STRAW 09/30/19 18:53 Urine Appearance CLEAR 09/30/19 18:53 Urine pH 7.0 (5.0-9.0) 09/30/19 18:53 Ur Specific Cobalt 1.009 09/30/19 18:53 Urine Protein NEGATIVE mg/dL (NEGATIVE) 09/30/19 18:53 Urine Glucose (UA) NEGATIVE mg/dL (NEGATIVE) 09/30/19 18:53 Urine Ketones 20 mg/dL (NEGATIVE) H 09/30/19 18:53 Urine Blood SMALL (NEGATIVE) H 09/30/19 18:53 Urine Nitrite NEGATIVE (NEGATIVE) 09/30/19 18:53 Urine Bilirubin NEGATIVE (NEGATIVE) 09/30/19 18:53 Urine Urobilinogen NEGATIVE mg/dL (<2.0) 09/30/19 18:53 Ur Leukocyte Esterase NEGATIVE (NEGATIVE) 09/30/19 18:53 Urine WBC (Auto) 2 /HPF 09/30/19 18:53 Urine RBC (Auto) 4 /HPF 09/30/19 18:53 U Hyaline Cast (Auto) Cancelled 09/30/19 15:10 Urine Bacteria (Auto) Cancelled 09/30/19 15:10 Urine Red Cell Clumps Cancelled 09/30/19 15:10 Urine WBC Clumps Cancelled 09/30/19 15:10 Squamous Epi Cells Auto <1 /HPF 09/30/19 18:53 U Non-Squamous Epis Auto Cancelled 09/30/19 15:10 Calcium Carbonate Cryst Cancelled 09/30/19 15:10 Calcium Phosphate Cryst Cancelled 09/30/19 15:10 Calcium Oxalate Cr Auto Cancelled 09/30/19 15:10 Leucine Crystals Cancelled 09/30/19 15:10 Cystine Crystals Cancelled 09/30/19 15:10 Uric Acid Cryst (Auto) Cancelled 09/30/19 15:10 Triple Phos Cryst (Auto) Cancelled 09/30/19 15:10 Tyrosine Crystals Cancelled 09/30/19 15:10 Amorphous Sediment Auto Cancelled 09/30/19 15:10 Cellular Casts Cancelled 09/30/19 15:10 Epithelial Casts (Auto) Cancelled 09/30/19 15:10 Fatty Casts Cancelled 09/30/19 15:10 Granular Casts (Auto) Cancelled 09/30/19 15:10 Waxy Casts (Auto) Cancelled 09/30/19 15:10 Broad Casts Cancelled 09/30/19 15:10 RBC Casts (Auto) Cancelled 09/30/19 15:10 WBC Casts (Auto) Cancelled 09/30/19 15:10 Urine Mucus (Auto) RARE /LPF 09/30/19 18:53 U Trichomonas (Auto) Cancelled 09/30/19 15:10 Ur Yeast w Hyphae Cancelled 09/30/19 15:10 Urine Yeast (Budding) Cancelled 09/30/19 15:10 Urine Ascorbic Acid NEGATIVE (NEGATIVE) 09/30/19 18:53 Impressions: KUB X-Ray 09/30/19 00:00 IMPRESSION: NG tube is been withdrawn and now projects over the mid esophagus. It remains folded on itself. Acute Abdomen Series 09/30/19 14:48 IMPRESSION: Dilated gas-filled loop of small bowel within the central abdomen compatible small bowel obstruction. Gas is however present distally throughout the colon. Abdomen/Pelvis CT 09/30/19 18:28 IMPRESSION: 1. Stones or sludge in the gallbladder. 2. Abnormal appearance of the colon which is distended and contains air and fluid. However, there is no inflammation or obstruction. The small bowel is of normal caliber and is completely decompressed. KUB X-Ray 10/01/19 12:00 IMPRESSION: Persistent mild colonic distention. NG tube remains in place. Based on conventional radiograph and CT there is a very redundant sigmoid colon which could be prone to volvulus. Chest X-Ray 10/07/19 00:00 IMPRESSION: Low lung volumes with reticulonodular airspace opacities outlining the right minor fissure. In the acute setting, correlate for infection. Plan Health Concerns: She is being discharged home with hospice care Time Spent: Less than 30 Minutes Stroke Is this a Stroke Patient?: No Acute Heart Failure - Is this a Heart Failure Patient?: No
== END 2019-10-11 12:05 | disposition hospice, home (50) | DRG 388 ==
LOC: ER 10:53 → EH 19:08 → 4N 20:19
PROVIDERS: ADMIT Hospitalist; ATTEND Hospitalist
PROC: 0DH63UZ Insertion of Feeding Device into Stomach, Percutaneous Approach (ICD-10-PCS; principal; 2019-10-05 13:00)
DX: K56.600 Partial intestinal obstruction, unspecified as to cause (principal); J96.01 Acute respiratory failure with hypoxia; R53.2 Functional quadriplegia; E87.0 Hyperosmolality and hypernatremia; E46 Unspecified protein-calorie malnutrition; R47.01 Aphasia; I10 Essential (primary) hypertension; B96.20 Unspecified Escherichia coli [E. coli] as the cause of diseases classified elsewhere; Z66 Do not resuscitate; Z51.5 Encounter for palliative care; E78.5 Hyperlipidemia, unspecified; B95.2 Enterococcus as the cause of diseases classified elsewhere; G30.9 Alzheimer's disease, unspecified; F02.80 Dementia in other diseases classified elsewhere, unspecified severity, without behavioral disturbance, psychotic disturbance, mood disturbance, and anxiety; E87.6 Hypokalemia; K21.9 Gastro-esophageal reflux disease without esophagitis; F32.9 Major depressive disorder, single episode, unspecified; K59.00 Constipation, unspecified; K31.7 Polyp of stomach and duodenum; E78.00 Pure hypercholesterolemia, unspecified; Z74.01 Bed confinement status; Z79.899 Other long term (current) drug therapy; Z79.82 Long term (current) use of aspirin
CPT/HCPCS: 36415; 43246; 51701; 71045; 74018; 74022; 74176; 80048; 80053; 81001; 82962; 83735; 84100; 84132; 85025; 85027; 85610; 87045; 87086; 87088; 87186; 87205; 94640; 94668; 96360; 96361; 99285; C9113; C9254; J0171; J0360; J1200; J1610; J1644; J2250; J2310; J2405; J3010; J3475; J3480; J3490; J7030

== ENCOUNTER 2020-06-25 00:17 | Emergency (ER) | payer MEDICARE, MEDICAID ==
[2020-06-25 01:11] LABS: ABSOLUTE EOSINOPHILS # (AUTO) 0.2 10^3/uL (0.0-0.6); ABSOLUTE LYMPHOCYTES (AUTO) 2.3 10^3/uL (0.5-4.7); ABSOLUTE MONOCYTES (AUTO) 0.6 10^3/uL (0.1-1.4); ABSOLUTE NEUT (AUTO) 3.1 10^3/uL (1.7-8.2); BASOPHILS % (AUTO) 0.4 % (0-2); EOSINOPHILS % (AUTO) 2.7 % (0-6); HEMATOCRIT 41.2 % (36.0-47.0); HEMOGLOBIN 13.6 g/dL (12.0-15.5); LYMPHOCYTES % (AUTO) 37.2 % (13-45); MEAN CORPUSCULAR HEMOGLOBIN 29.5 pg (27.0-33.4); MEAN CORPUSCULAR HGB CONC 33.1 g/dL (32.0-36.0); MEAN CORPUSCULAR VOLUME 89 fl (80-97); MONOCYTES % (AUTO) 10.3 % (3-13); PLATELET COUNT 195 10^3/uL (150-450); RED BLOOD COUNT 4.62 10^6/uL (3.72-5.28); RED CELL DISTRIBUTION WIDTH 14.5 % (11.5-14.0); SEGMENTED NEUTROPHILS % (AUTO) 49.4 % (42-78); TOTAL CELLS COUNTED % (AUTO) 100 %; WHITE BLOOD COUNT 6.3 10^3/uL (4.0-10.5)
--- NOTE | 2020-06-25 01:14 | ER Document Report ---
ED General - General Chief Complaint: Fever Stated Complaint: BREATHING/FEVER Time Seen by Provider: 06/25/20 01:09 Primary Care Provider: MEEK POMPA MD [Primary Care Provider] - Follow up as needed TRAVEL OUTSIDE OF THE [place] IN LAST 30 DAYS: No - HPI Notes: 84-year-old female arrives via EMS for chief complaint of fever and difficulty breathing/productive cough. Patient is aphasic at baseline, does not communicate. Initial information obtained from EMS/nursing report. Temperature was 100.1, she received 975 mg Tylenol and a DuoNeb. [facility] limited. - Related Data Allergies/Adverse Reactions: No Known Allergies Allergy (Verified 06/25/20 01:04) Past Medical History - General Information source: Emergency Med Personnel - Social History Smoking Status: Unknown if Ever Smoked Frequency of alcohol use: None Drug Abuse: None Family History: Reviewed & Not Pertinent, CVA - Past Medical History Cardiac Medical History: Reports: Hx Hypercholesterolemia, Hx Hypertension Pulmonary Medical History: Denies: Hx Asthma, Hx COPD Neurological Medical History: Denies: Hx Seizures Endocrine Medical History: Denies: Hx Diabetes Mellitus Type 2 Renal/ Medical History: Denies: Hx Peritoneal Dialysis GI Medical History: Reports: Hx Gastroesophageal Reflux Disease. Denies: Hx Cirrhosis Musculoskeletal Medical History: Reports Hx Arthritis Psychiatric Medical History: Reports: Hx Dementia, Hx Depression Infectious Medical History: Reports: Hx C-Diff - She has had C. difficile years ago. Most recent test (last week) was negat Past Surgical History: Denies: Hx Hysterectomy - Immunizations Immunizations up to date: Yes Hx Diphtheria, Pertussis, Tetanus Vaccination: Yes Review of Systems - Review of Systems -: Yes ROS unobtainable due to patient's medical condition Physical Exam - Vital signs Vitals: Resp 15 06/25/20 00:36 - General General appearance: Other - Patient initially sleeping on exam, she aroused and made eye contact Notes: Chronically ill-appearing - HEENT Head: Normocephalic, Atraumatic Pupils: PERRL - Respiratory Notes: Transmitted upper airway sounds, patient appears to be clearing her throat. Lungs clear at bases - Cardiovascular Rhythm: Regular Normal capillary refill: Yes - Abdominal Bowel sounds: Normal Tenderness: Nontender - No facial grimacing with palpation Notes: Feeding tube present - Extremities General lower extremity: No: Edema Notes: Contracture right upper extremity - Neurological Notes: Makes eye contact, will follow commands such as squeeze my hand - Psychological Notes: Unable to assess - Skin Skin Temperature: Warm Course - Re-evaluation Re-evalutation: 84-year-old female here with reported fever, productive cough and difficulty b reathing via EMS. Patient is aphasic and does not communicate. She will make eye contact and follow simple commands. She has some congestion/upper airway sounds, lung bases are clear. Her abdomen is soft and has normal active bowel sounds. Not appreciate any obvious rashes. Will look for obvious source of infection, such as pneumonia or UTI. Viral illness possibly as well. Vital signs stable. 06/25/20 01:42 No leukocytosis or left shift. No acute anemia. Hypernatremia present, will ch mohit serum and urine osmolality, have ordered D5 half-normal saline bolus. Creatinine is within normal limits. BUN is within normal limits. No lactic acidosis. 06/25/20 01:50 Patient son has arrived at bedside.. Son states that he is concerned she has a UTI, she typically gets UTIs about once a month. She has been sick for about 2 days, no one else is sick at home. He states that she has had some congestion, sounds like she needs to clear her throat/cough. I updated him on the hyponatre seth, he states that she probably is not getting enough water. Have additionally ordered free water to be given through G-tube. 06/25/20 03:20 No consolidation on chest x-ray. Urine does not suggest UTI. 06/25/20 05:08 I went in to update son on overall reassuring work-up so far. Patient is 98 core temp, this is greater than 4 hours after Tylenol administration. I discussed that a viral illness could be a possibility as well, he is agreeable to flu and Covid testing at this time. Have also ordered some guaifenesin to help with congestion. He would like for patient to return home. Given that she has had an overall reassuring work-up I feel that this is reasonable at this time. Strict return precautions given, stable time of discharge. - Vital Signs Vital signs: Temp Pulse Resp BP Pulse Ox 98.8 F 17 144/76 H 99 06/25/20 00:38 06/25/20 04:01 06/25/20 04:00 10/21/20 04:01 - Laboratory Result Diagrams: 06/25/20 00:50 06/25/20 00:50 Laboratory results interpreted by me: 06/25/20 06/25/20 06/25/20 00:50 00:50 00:50 RDW 14.5 H VBG HCO3 Sodium 151.3 H Chloride 111 H Carbon Dioxide 32 H Creatinine 0.48 L Serum Osmolality 311 H ALT 40 H Urine Protein Urine Urobilinogen Urine Ascorbic Acid 06/25/20 06/25/20 01:55 02:30 RDW VBG HCO3 33.2 H Sodium Chloride Carbon Dioxide Creatinine Serum Osmolality ALT Urine Protein 30 H Urine Urobilinogen 4.0 H Urine Ascorbic Acid 40 H - Diagnostic Test Radiology reviewed: Image reviewed, Reports reviewed - EKG Interpretation by Me Additional EKG results interpreted by me: EKG is interpreted by me. Normal sinus rhythm, rate 85. Narrow QRS, QTC within normal limits. No ST segment elevation. Discharge - Discharge Clinical Impression: Congestion of upper respiratory tract, Hypernatremia Disposition: HOME, SELF-CARE Additional Instructions: Please be sure to increase the amount of water that you are giving. Please have primary care doctor recheck labs within 1 week. You may continue to use guaifenesin to help with congestion. Please return to the emergency department for any concerning or worsening symptoms. Referrals: MEEK POMPA MD [Primary Care Provider] - Follow up as needed
[2020-06-25 01:19] LABS: INTERNATIONAL RATION (INR) 1.02; PROTHROMBIN TIME 13.6 SEC (11.4-15.4)
[2020-06-25 01:35] LABS: ALBUMIN 3.8 g/dL (3.5-5.0); ALKALINE PHOSPHATASE 101 U/L (38-126); ANION GAP 8 (5-19); ASPARTATE AMINO TRANSFERASE 32 U/L (14-36); BILIRUBIN,DIRECT 0.3 mg/dL (0.0-0.4); BILIRUBIN,TOTAL 0.6 mg/dL (0.2-1.3); BLOOD UREA NITROGEN 19 mg/dL (7-20); CALCIUM 9.8 mg/dL (8.4-10.2); CARBON DIOXIDE 32 mmol/L (22-30); CHLORIDE 111 mmol/L (98-107); GLUCOSE 87 mg/dL (75-110); POTASSIUM 3.6 mmol/L (3.6-5.0); TOTAL PROTEIN 6.8 g/dL (6.3-8.2)
[2020-06-25] MEDS ORDERED: DEXTROSE 5%-1/2 NORMAL SALINE 500 ML IV ONE (01:39)
[2020-06-25 02:16] LABS: APPEARANCE,URINE CLEAR; BILIRUBIN,URINE NEGATIVE (NEGATIVE); COLOR,URINE YELLOW; GLUCOSE, URINE NEGATIVE (NEGATIVE); KETONES,URINE NEGATIVE (NEGATIVE); LEUKOCYTE ESTERASE,URINE NEGATIVE (NEGATIVE); NITRITE,URINE NEGATIVE (NEGATIVE); PROTEIN,URINE 30 mg/dL (NEGATIVE); URINE SPECIFIC GRAVITY 1.025
--- NOTE | 2020-06-25 02:27 | RADIOLOGY REPORT (SQ) ---
EXAM DESCRIPTION: XR CHEST 1 VIEW COMPLETED DATE/TME: 06/25/2020 00:53 CLINICAL HISTORY: 84 years, Female, FEVER COMPARISON: 10/07/2019 NUMBER OF VIEWS: One TECHNIQUE: Upright AP view the chest LIMITATIONS: None. FINDINGS: The lungs are clear. Heart is normal in size. No pneumothorax or pleural effusion. No acute fracture. Mild, nonspecific gaseous distention of the colon. IMPRESSION: No acute cardiopulmonary abnormality. copyright 2010 [employer]- All Rights Reserved
[2020-06-25 02:36] LABS: URINE SODIUM 89 mmol/L (30-90)
[2020-06-25 02:37] LABS: OSMOLALITY,URINE 717 mOsm/kg (300-900)
[2020-06-25 02:43] LABS: VENOUS BLOOD HCO3 33.2 mmol/L (20-32); VENOUS BLOOD PCO2 52.9 mmHg (35-63); VENOUS BLOOD PH 7.42 (7.30-7.42)
[2020-06-25] MEDS ORDERED: GUAIFENESIN SYRP 200 MG/10 ML UDC PEG ONE (05:07)
[2020-06-25 06:15] VITALS: BP 126/74
[2020-06-25 06:15] LABS: A TYPE INFLUENZA AG NEGATIVE (NEGATIVE); B INFLUENZA AG NEGATIVE (NEGATIVE)
--- NOTE | 2020-06-25 16:21 | EKG REPORT ---
SEVERITY:- ABNORMAL ECG - SINUS RHYTHM PROBABLE LEFT VENTRICULAR HYPERTROPHY : Confirmed by: Flex Drake MD 25-Jun-2020 16:20:55
== END 2020-06-25 06:13 | disposition home or self-care (01) ==
LOC: ER 00:17
DX: R09.89 Other specified symptoms and signs involving the circulatory and respiratory systems (principal); E87.0 Hyperosmolality and hypernatremia; R50.9 Fever, unspecified; R06.00 Dyspnea, unspecified; R05 Cough; I10 Essential (primary) hypertension; R47.01 Aphasia; Z87.440 Personal history of urinary (tract) infections
CPT/HCPCS: 93005; 99285; 96365; 96366; 36415; 87040; 83605; 83930; 83935; 84300; 85025; 85610; 80053; 81001; 82803; 87804; 71045; 93010; A9270; J7070

== ENCOUNTER → 2020-08-05 | Outpatient (CLI) | payer MEDICARE, MEDICAID ==
--- NOTE | 2020-08-05 14:30 | RADIOLOGY REPORT (SQ) ---
EXAM DESCRIPTION: UGI W/ SINGLE CONTRAST; SMALL BOWEL POST UGI IMAGES COMPLETED DATE/TIME: 08/05/2020 11:35 am REASON FOR STUDY: K94.20 GASTROSTOMY COMPLICATION, UNSPECIFIED K94.20 GASTROSTOMY COMPLICATION, UNS PECIFIED COMPARISON: None. TECHNIQUE: Under fluoroscopic guidance, Gastrografin was instilled through an indwelling G-tube. Fl uoroscopic spot images and routine radiographic images acquired and stored on PACS. Following evaluation of stomach, additional contrast was administered with serial delayed abdominal r adiographs until colonic identification. 12 MM BARIUM TABLET GIVEN: No FLUOROSCOPY TIME: 2.1 minutes 10 images saved to PACS. RADIATION DOSE: 2.1 minutes of fluoro time LIMITATIONS: Single contrast technique FINDINGS: APPROXIMATELY 250 ML OF GASTROGRAFIN INSTILLED THROUGH INDWELLING GASTROSTOMY TUBE. ABDOMEN SANITATION LEAD: Marked gaseous distention of the colon, similar to CT abdomen pelvis on 10/01/2019. GASTRO-ESOPHAGEAL JUNCTION: No hiatal hernia. Mild gastroesophageal reflux identified. STOMACH: Indwelling gastrostomy tube without evidence for complication. Normal appearing stomach wit hout masses or ulcerations. GASTRIC OUTLET: No delay in emptying. Normal pylorus. DUODENAL BULB: Normal distention. No spasm or ulceration. DUODENUM: Mucosa normal. No extrinsic masses or malrotation. PROXIMAL SMALL BOWEL: Normal as visualized. JEJUNUM: Normal mucosal pattern. No dilatation, segmentation, strictures or masses. ILEUM: Normal mucosal pattern. No dilatation, segmentation, strictures or masses. TERMINAL ILEUM AND ILEO-CECAL VALVE: Normal mucosal pattern without cobble-stoning or stricture. Nor mal compression. PROXIMAL COLON: Incompletely imaged. No abnormality. Gaseous distension. NON-GI TRACT STRUCTURES: No significant finding. OTHER: Normal small bowel transit time, with barium seen in the colon on the 1 hour film. IMPRESSION: NORMAL SINGLE CONTRAST UPPER GI THROUGH INDWELLING G-TUBE. NO GASTROSTOMY COMPLICATION NOTED. MILD GASTROESOPHAGEAL REFLUX. MARKED GASEOUS DISTENSION OF THE COLON, SIMILAR TO CT ON 10/01/2019. COMMENT: NONE Quality ID 145: Final reports for procedures using fluoroscopy that document radiation exposure candelario jas, or exposure time and number of fluorographic images (if radiation exposure indices are not avail able) TECHNICAL DOCUMENTATION: JOB ID: [id number] 2010 [employer]- All Rights Reserved Reading location - IP/workstation name: [email or web address]
--- NOTE | 2020-08-05 14:30 | RADIOLOGY REPORT (SQ) ---
EXAM DESCRIPTION: UGI W/ SINGLE CONTRAST; SMALL BOWEL POST UGI IMAGES COMPLETED DATE/TIME: 08/05/2020 11:35 am REASON FOR STUDY: K94.20 GASTROSTOMY COMPLICATION, UNSPECIFIED K94.20 GASTROSTOMY COMPLICATION, UNS PECIFIED COMPARISON: None. TECHNIQUE: Under fluoroscopic guidance, Gastrografin was instilled through an indwelling G-tube. Fl uoroscopic spot images and routine radiographic images acquired and stored on PACS. Following evaluation of stomach, additional contrast was administered with serial delayed abdominal r adiographs until colonic identification. 12 MM BARIUM TABLET GIVEN: No FLUOROSCOPY TIME: 2.1 minutes 10 images saved to PACS. RADIATION DOSE: 2.1 minutes of fluoro time LIMITATIONS: Single contrast technique FINDINGS: APPROXIMATELY 250 ML OF GASTROGRAFIN INSTILLED THROUGH INDWELLING GASTROSTOMY TUBE. ABDOMEN PLANNING TECHNICIAN: Marked gaseous distention of the colon, similar to CT abdomen pelvis on 10/01/2019. GASTRO-ESOPHAGEAL JUNCTION: No hiatal hernia. Mild gastroesophageal reflux identified. STOMACH: Indwelling gastrostomy tube without evidence for complication. Normal appearing stomach wit hout masses or ulcerations. GASTRIC OUTLET: No delay in emptying. Normal pylorus. DUODENAL BULB: Normal distention. No spasm or ulceration. DUODENUM: Mucosa normal. No extrinsic masses or malrotation. PROXIMAL SMALL BOWEL: Normal as visualized. JEJUNUM: Normal mucosal pattern. No dilatation, segmentation, strictures or masses. ILEUM: Normal mucosal pattern. No dilatation, segmentation, strictures or masses. TERMINAL ILEUM AND ILEO-CECAL VALVE: Normal mucosal pattern without cobble-stoning or stricture. Nor mal compression. PROXIMAL COLON: Incompletely imaged. No abnormality. Gaseous distension. NON-GI TRACT STRUCTURES: No significant finding. OTHER: Normal small bowel transit time, with barium seen in the colon on the 1 hour film. IMPRESSION: NORMAL SINGLE CONTRAST UPPER GI THROUGH INDWELLING G-TUBE. NO GASTROSTOMY COMPLICATION NOTED. MILD GASTROESOPHAGEAL REFLUX. MARKED GASEOUS DISTENSION OF THE COLON, SIMILAR TO CT ON 10/01/2019. COMMENT: NONE Quality ID 145: Final reports for procedures using fluoroscopy that document radiation exposure candelario jas, or exposure time and number of fluorographic images (if radiation exposure indices are not avail able) TECHNICAL DOCUMENTATION: JOB ID: [id number] 2010 [employer]- All Rights Reserved Reading location - IP/workstation name: [email or web address]
== END ==
LOC: RAD 08:55
PROVIDERS: ATTEND Internal Medicine Gastroenterology
DX: K94.20 Gastrostomy complication, unspecified (principal); R10.9 Unspecified abdominal pain; K21.9 Gastro-esophageal reflux disease without esophagitis
CPT/HCPCS: 74240; 74248